=== PATIENT | female | born 1945 | race Caucasian/White ===

== ENCOUNTER 2019-07-28 15:47 | Inpatient (IN) | payer OTHER, BC ==
--- NOTE | 2019-07-28 15:53 | PDOC ---
Rapid Medical Evaluation Chief Complaint: Shortness of Breath Time Seen by Provider: 07/28/19 15:51 Medical Evaluation: 07/28/19 15:51 This patient had rapid evaluation in triage cc: shortness of breath since yesterday HPI: Patient reports shortness of breath since yesterday. Seen at primary physician's office and referred to ed for further evaluation PE: labored persed lip breathing in triage +expiratory wheezing at bases heart s1s2 order: chest xray, nebulizer This patient will proceed to main emergency room for further evaluation. Discharge Disposition - Diagnosis Shortness of breath - Referrals - Patient Instructions - Post Discharge Activity
[2019-07-28] MEDS ORDERED: ALBUTEROL SO4 2.5/IPRATROPIUM 0.5 INH SOL 3 ML VIAL.NEB. NEB ONE ×2 (15:54→16:07)
[2019-07-28] MEDS ORDERED: AZITHROMYCIN IVPB 250 MG in DEXTROSE 5%-WATER - 250 ML IVPB ONE (16:20)
[2019-07-28] MEDS ORDERED: methylPREDNISolone NA SUCC 125 MG/2 ML VIAL IVPB ONE (16:21)
--- NOTE | 2019-07-28 16:23 | PDOC ---
History of Present Illness - General Chief Complaint: Shortness of Breath Stated Complaint: EMPHYSEMA Time Seen by Provider: 07/28/19 15:51 Past History - Past Medical History Allergies/Adverse Reactions: Allergies Allergy/AdvReac Type Severity Reaction Status Date / Time No Known Allergies Allergy Verified 07/28/19 15:55 Home Medications: Ambulatory Orders Albuterol Sulfate [Albuterol Sulfate Hfa] 2 inh IN Q4HWA PRN 07/28/19 Budesonide/Formeterol Fumarate [SYMBICORT 160/4.5mcg -] 2 inh IN BID 07/28/19 Lisinopril 10 mg PO DAILY 07/28/19 Montelukast Na [Singulair -] 10 mg PO HS 07/28/19 Pantoprazole Sodium 40 mg PO DAILY 07/28/19 - Psycho Social/Smoking Cessation Hx Smoking History: Never smoked Information on smoking cessation initiated: No Hx Alcohol Use: No Drug/Substance Use Hx: No *Physical Exam - Vital Signs Last Vital Signs Temp Pulse Resp BP Pulse Ox 97.9 F 90 18 186/97 H 98 07/28/19 15:50 07/28/19 15:50 07/28/19 15:50 07/28/19 15:50 07/28/19 15:50 07/28/19 16:[address] Gokul Monzon 74 y/o female PMH HTN, slipped lumbar disc, and COPD c/o SOB. This has happened before. She was sent in from PCP for SOB. She states that she was recently hospitalized for a similar presentation at [facility] for the month of May 2019. She reports that she was cleaning her home today, including dusting, which often triggers her cough/SOB. Other possible exacerbating factor includes active smoking. She has no pets or rugs in her home. She denies orthopnea, PND, and leg swelling. Denies FNVD, chills, and constipation No new meds/herbs, drugs/supplements No recent illness, sick contacts, or recent travel Fam hx: brother cardiac disease Surgical hx: extensive and includes BL knee replacements, LEFT breast lumpectomy, appendectomy, Social hx: Active smoker. Social etoh. Denies recreational drug use. Retired adult school counselor. No pets at home. REVIEW OF SYSTEMS CONSTITUTIONAL: Absent: fever, chills, diaphoresis, generalized weakness, malaise, loss of appetite, weight change HEENT: Absent: rhinorrhea, nasal congestion, throat pain, throat swelling, difficulty swallowing, mouth swelling, ear pain, eye pain, visual changes CARDIOVASCULAR: Absent: chest pain, syncope, palpitations, irregular heart rate, lightheadedness, peripheral edema RESPIRATORY: Absent: cough, shortness of breath, dyspnea with exertion, orthopnea, wheezing, stridor, hemoptysis GASTROINTESTINAL: Absent: abdominal pain, abdominal distension, nausea, vomiting, diarrhea, c onstipation, melena, hematochezia GENITOURINARY: Absent: dysuria, frequency, urgency, hesitancy, hematuria, flank pain, genital pain MUSCULOSKELETAL: Absent: myalgia, arthralgia, joint swelling, back pain, neck pain SKIN: Absent: rash, itching, pallor HEMATOLOGIC/IMMUNOLOGIC: Absent: easy bleeding, easy bruising, lymphadenopathy, frequent infections ENDOCRINE: Absent: unexplained weight gain, unexplained weight loss, heat intolerance, cold intolerance NEUROLOGIC: Absent: headache, focal weakness or paresthesias, dizziness, unsteady gait, seizure, mental status changes, bladder or bowel incontinence PSYCHIATRIC: Absent: anxiety, depression, suicidal or homicidal ideation, hallucinations. > GENERAL: AO x3 in acute distress HEAD: NCAT EYES: ARUNA, EOMI, sclera anicteric, conjunctiva clear. No ptosis. ENT: Ears normal, nares patent, oropharynx clear without exudates, moist mucous membranes. NECK: Trachea midline, full range of motion, supple. > LUNGS: Diffuse wheezes in anterior and post. lung cat, accessory muscle use, sitting in tripod position HEART: RRR, S1, S2 without murmur, rub or gallop. ABDOMEN: Soft, nontender, nondistended, normoactive bowel sounds, no guarding, no rebound, no hepatosplenomegaly, no masses. EXTREMITIES: 2+ pulses, warm, well-perfused, no edema. NEUROLOGICAL: Cranial nerves II through XII grossly intact. Normal speech, gait not observed. PSYCH: Normal mood, normal affect. SKIN: Warm, dry, normal turgor, no rashes or lesions noted # COPD exacerbation - CBC, CMP, UA, cardiac profile, EKG, cont. cardiac monitoring - BiPAP - 125 mg methylprednisolone - DuoNebs - PRN albuterol - Will consider Mg if cont. decompensated state 07/28/19 17:40 Labs WNL CXR: aortic plaque, prominent lia, prominent heart. Density at middle RIGHT base. No sign of infiltrate. Call made to Dr. Gokul Hamilton for admission service advised admissions go to [facility] hospitalist. 07/28/19 18:09 Dr. Gokul Hamilton's service advised admissions go to [facility] hospitalist. Microblog sent 07/28/19 18:[address] Vega for admission to med-surg ED Treatment Course - LABORATORY CBC & Chemistry Diagram: 07/29/19 07:20 07/29/19 07:20 - Medications Given in the ED: ED Medications Discontinued Medications Generic Name Dose Route Start Last Admin Trade Name Freq PRN Reason Stop Dose Admin Albuterol/Ipratropium 1 amp 07/28/19 15:54 07/28/19 16:10 Duoneb - NEB 07/28/19 15:55 1 amp ONCE ONE Administration Discharge - Discharge Information Problems reviewed: Yes Clinical Impression/Diagnosis: Shortness of breath COPD (chronic obstructive pulmonary disease) with emphysema Qualifiers: Emphysema type: unspecified Qualified Code(s): J43.9 - Emphysema, unspecified - Follow up/Referral - Patient Discharge Instructions - Post Discharge Activity
[2019-07-28] MEDS ORDERED: methylPREDNISolone NA SUCC 125 MG/2 ML VIAL ONE (16:50)
--- NOTE | 2019-07-28 16:52 | PDOC ---
Documentation entered by Carly May SCRIBE, acting as scribe for Brandon Barksdale MD. Brandon Barksdale MD: This documentation has been prepared by the Yadira cotton Brenda, SCRIBE, under my direction and personally reviewed by me in its entirety. I confirm that the documentation accurately reflects all work, treatment, procedures, and medical decision making performed by me. Attending Attestation - Resident Resident Name: Raphael Dwyer - ED Attending Attestation I have performed the following: I have examined & evaluated the patient, The case was reviewed & discussed with the resident, I agree w/resident's findings & plan, Exceptions are as noted - HPI HPI: 07/28/19 16:26 The patient is a 74 year old female with a significant PMH of COPD who presents to the ED sent by Dr. Ray for evaluation of shortness of breath and audible wheezing. Patient states that she was hospitalized for COPD exacerbation from 05/15-06/16 and has never felt completely better, but sx worsened over t past few days. pt endorses increased coughing/sob and productive cough. she went to e PMD who found her with icnreased work of breathing and wheezing, gave her a neb and sent her to the ED for evaluation.pt endorses increased MASON. Denies any current fever/chills, n/v, cp, abd pain. pt notes increased leg swelling but is usual for her if she is ambulating. yvon any calf pain, leg pain, hemoptysis. Allergies: NKA Past surgical history: Social history: current tobacco use. No alcohol use or illicit drug use. PCP: Flor - Physicial Exam PE: 07/28/19 17:26 exam: general:pursed lip breathing, speaking in short segments Pulm: diffuse wheezing throughout, no rales apreciated, card: rrr,. no mrg abd: soft nontender,. no rebound/guarding ext: symmetric bl pitting edmea, no calf tenderness, neg homans sign - Critical Care Time Total Critical Care Time: 35 Critical Care Statement: The care of this patient involved high complexity decision making to prevent further life threatening deterioration of the patient's condition and/or to evaluate & treat vital organ system(s) failure or risk of failure. - Medical Decision Making 07/28/19 17:27 suspect copd exacerbation will obtain xray to r/o pna labs, vbg steroids, duonebs for sx relief bipap started toa ssist with work of breathing with improvement will continue montioring anticipate admission
[2019-07-28 16:53] LABS: BASO % 0.5 % (0-2.0); HEMATOCRIT 41.7 % (32.4-45.2); HEMOGLOBIN 13.6 GM/dL (10.7-15.3); MCH 30.1 pg (25.7-33.7); MCHC 32.6 g/dl (32.0-36.0); MEAN CELL VOLUME 92.3 fl (80-96); MEAN PLT VOLUME 9.3 fl (7.5-11.1); MONO % 6.7 % (3.8-10.2); NEUT % 74.8 % (42.8-82.8); PLATELET COUNT 218 K/MM3 (134-434); RBC 4.51 M/mm3 (3.60-5.2); RDW 15.1 % (11.6-15.6); VENOUS PC02 46.4 mmHg (38-52); VENOUS PH 7.36 (7.31-7.41); WHITE BLOOD COUNT 7.8 K/mm3 (4.0-10.0)
[2019-07-28 16:54] LABS: VENOUS PO2 < 49 mmHg (28-48)
[2019-07-28 17:14] LABS: ALBUMIN 3.8 g/dl (3.4-5.0); BILIRUBIN,TOTAL 0.3 mg/dL (0.2-1); BLOOD UREA NITROGEN 16.1 mg/dL (7-18); CALCIUM 8.5 mg/dL (8.5-10.1); CREATININE 0.7 mg/dL (0.55-1.3); MAGNESIUM 2.1 mg/dL (1.8-2.4); POTASSIUM 3.9 mmol/L (3.5-5.1); TOT PROT 6.6 g/dl (6.4-8.2)
[2019-07-28 19:30] LABS: EPI CELLS 1.9 /HPF (0-5/HPF); HYALINE CASTS 1 /lpf (0-8); URINE APPEARANCE CLEAR; URINE BILIRUBIN NEGATIVE (NEGATIVE); URINE COLOR YELLOW; URINE GLUCOSE (UA) 1+ (NEGATIVE); URINE KETONE NEGATIVE (NEGATIVE); URINE LEUK ESTERASE TRACE (NEGATIVE); URINE NITRITE NEGATIVE (NEGATIVE); URINE PROTEIN NEGATIVE (NEGATIVE); URINE RBC 0 /hpf (0-4); URINE UROBILINOGEN 0.2 mg/dL (0.2-1.0); URINE WBC 5 /hpf (0-5)
--- NOTE | 2019-07-28 19:36 | HP ---
Admitting History and Physical - Primary Care Physician PCP: Henna Monzon - Admission Chief Complaint: SOB History of Present Illness: This is a 74 y/o woman with a PMHx of COPD, HTN, Lumbar Disc Disease, GERD, Tobacco Smoker. Who presents to the ED sent in by her PCP for evaluation of shortness of breath and audible wheezing. Patient reports that she was hospitalized at [facility] for COPD Exacerbation from 05/15-06/16 and reports no improvement since discharge. Patient reports having increased productive cough and MASON. Patient reports increased bilateral leg swelling. Patient denies fever , chills, dizziness, DUARTE, CP, palpitations, AP, N/V/D, constipation, dysuria. History Source: Patient Limitations to Obtaining History: No Limitations - Past Medical History Cardiovascular: Yes: HTN Pulmonary: Yes: COPD Gastrointestinal: Yes: GERD Musculoskeletal: Yes: Chronic low back pain - Past Surgical History Past Surgical History: Yes: Appendectomy, Joint Replacement (bilateral Knee) Additional Past Surgical History: Left breast lumpectomy - Smoking History Smoking history: Current every day smoker Have you smoked in the past 12 months: Yes Aproximately how many cigarettes per day: 10 (reports 10-20) - Alcohol/Substance Use Hx Alcohol Use: Yes (Social) History of Substance Use: reports: None - Social History Usual Living Arrangement: Yes: Other (her brother lives upstairs (2 family home) ) ADL: Independent Occupation: Retired Teacher History of Recent Travel: No Home Medications - Allergies Allergies/Adverse Reactions: Allergies Allergy/AdvReac Type Severity Reaction Status Date / Time No Known Allergies Allergy Verified 07/28/19 15:55 - Home Medications Home Medications: Ambulatory Orders Albuterol Sulfate [Albuterol Sulfate Hfa] 2 inh IN Q4HWA PRN 07/28/19 Budesonide/Formeterol Fumarate [SYMBICORT 160/4.5mcg -] 2 inh IN BID 07/28/19 Lisinopril 10 mg PO DAILY 07/28/19 Montelukast Na [Singulair -] 10 mg PO HS 07/28/19 Pantoprazole Sodium 40 mg PO DAILY 07/28/19 Family Medical History Family Hx Diabetes: Mother (Alcoholism- Father) Review of Systems - Review of Systems Constitutional: reports: No Symptoms Eyes: reports: No Symptoms HENT: reports: No Symptoms Neck: reports: No Symptoms Cardiovascular: reports: Edema, Shortness of Breath Respiratory: reports: Cough, SOB, Wheezing Gastrointestinal: reports: No Symptoms Genitourinary: reports: No Symptoms Breasts: reports: No Symptoms Reported Musculoskeletal: reports: No Symptoms Integumentary: reports: No Symptoms Neurological: reports: No Symptoms Endocrine: reports: No Symptoms Hematology/Lymphatic: reports: No Symptoms Psychiatric: reports: No Symptoms Physical Examination Vital Signs: Vital Signs Temperature 97.9 F 07/28/19 15:50 Pulse Rate 87 07/28/19 18:42 Respiratory Rate 24 H 07/28/19 19:19 Blood Pressure 190/75 H 07/28/19 18:42 O2 Sat by Pulse Oximetry (%) 99 07/28/19 19:19 Constitutional: Yes: Mild Distress, Obese Eyes: Yes: WNL, Conjunctiva Clear, EOM Intact HENT: Yes: WNL, Atraumatic, Normocephalic Neck: Yes: WNL, Supple, Trachea Midline Cardiovascular: Yes: WNL, Regular Rate and Rhythm, S1, S2 Respiratory: Yes: Diminished, On Nasal O2, Rhonchi, SOB on Exertion, Wheezes Gastrointestinal: Yes: WNL, Normal Bowel Sounds, Soft, Abdomen, Obese ...Rectal Exam: Yes: Deferred Renal/: Yes: WNL Breast(s): Yes: WNL Musculoskeletal: Yes: Back Pain Extremities: Yes: WNL Edema: Yes Edema: LLE: 2+, RLE: 2+ Peripheral Pulses WNL: Yes Integumentary: Yes: WNL Neurological: Yes: WNL, Alert, Oriented, Cran Nerves II-XII Intact ...Motor Strength: WNL Psychiatric: Yes: WNL, Alert, Oriented Labs: CBC, BMP 07/28/19 16:30 07/28/19 16:30 Laboratory Results - last 24 hr 07/28/19 07/28/19 07/28/19 16:30 16:30 16:30 WBC 7.8 RBC 4.51 Hgb 13.6 Hct 41.7 MCV 92.3 MCH 30.1 MCHC 32.6 RDW 15.1 Plt Count 218 MPV 9.3 Absolute Neuts (auto) 5.9 Neutrophils % 74.8 Lymphocytes % 17.0 Monocytes % 6.7 Eosinophils % 1.0 Basophils % 0.5 Nucleated RBC % 0 VBG pH POC VBG pCO2 POC VBG pO2 VBG HCO3 VBG O2 Sat (Erna) VBG Base Excess Sodium 141 Potassium 3.9 Chloride 107 Carbon Dioxide 27 Anion Gap 7 L BUN 16.1 Creatinine 0.7 Est GFR (CKD-EPI)AfAm 97.54 Est GFR (CKD-EPI)NonAf 84.16 Random Glucose 98 Calcium 8.5 Magnesium 2.1 Total Bilirubin 0.3 AST 12 L ALT 21 Alkaline Phosphatase 115 Creatine Kinase 53 Troponin I < 0.02 Total Protein 6.6 Albumin 3.8 Urine Color Urine Appearance Urine pH Ur Specific [place] Urine Protein Urine Glucose (UA) Urine Ketones Urine Blood Urine Nitrite Urine Bilirubin Urine Urobilinogen Ur Leukocyte Esterase Urine WBC (Auto) Urine RBC (Auto) Urine Casts (Auto) U Epithel Cells (Auto) Urine Bacteria (Auto) 07/28/19 07/28/19 16:30 18:45 WBC RBC Hgb Hct MCV MCH MCHC RDW Plt Count MPV Absolute Neuts (auto) Neutrophils % Lymphocytes % Monocytes % Eosinophils % Basophils % Nucleated RBC % VBG pH 7.36 POC VBG pCO2 46.4 POC VBG pO2 < 49 H VBG HCO3 25.7 VBG O2 Sat (Erna) 61.3 L VBG Base Excess 0.4 Sodium Potassium Chloride Carbon Dioxide Anion Gap BUN Creatinine Est GFR (CKD-EPI)AfAm Est GFR (CKD-EPI)NonAf Random Glucose Calcium Magnesium Total Bilirubin AST ALT Alkaline Phosphatase Creatine Kinase Troponin I Total Protein Albumin Urine Color Yellow Urine Appearance Clear Urine pH 5.0 Ur Specific [place] 1.011 Urine Protein Negative Urine Glucose (UA) 1+ H Urine Ketones Negative Urine Blood Negative Urine Nitrite Negative Urine Bilirubin Negative Urine Urobilinogen 0.2 Ur Leukocyte Esterase Trace Urine WBC (Auto) 5 Urine RBC (Auto) 0 Urine Casts (Auto) 1 U Epithel Cells (Auto) 1.9 Urine Bacteria (Auto) 75.0 Intake & Output 07/26/19 07/27/19 07/28/19 07/29/19 23:59 23:59 23:59 23:59 Intake Total 250 Balance 250 Weight 94.801 kg Current Medications Generic Name Dose Route Start Last Admin Trade Name Freq PRN Reason Stop Dose Admin Albuterol/Ipratropium 1 amp 07/28/19 19:31 07/29/19 06:10 Duoneb - NEB 1 amp Q6H PRN Administration SHORTNESS OF BREATH Budesonide/Formoterol Fumarate 2 puff 07/28/19 22:00 07/28/19 23:04 Symbicort 160/4.5mcg - IH 2 puff BID SAL Administration Heparin Sodium (Porcine) 5,000 unit 07/28/19 22:00 07/28/19 22:43 Heparin - SQ 5,000 unit BID SAL Administration Levofloxacin 500 mg in 100 mls @ 100 mls/hr 07/29/19 10:00 Levaquin 500 Mg Premixed Ivpb - IVPB DAILY SAL Protocol Lisinopril 10 mg 07/29/19 10:00 Prinivil PO DAILY SAL Methylprednisolone Sodium Succinate 40 mg 07/29/19 02:00 07/29/19 01:12 Solu-Medrol - IVPUSH 40 mg Q8H-IV SAL Administration Montelukast Sodium 10 mg 07/28/19 22:00 07/28/19 22:43 Singulair - PO 10 mg HS SAL Administration Pantoprazole Sodium 40 mg 07/29/19 10:00 Protonix - PO DAILY SAL Imaging - Results Chest X-ray: Image Reviewed EKG: Pending Problem List - Problems (1) COPD with acute exacerbation Assessment/Plan: ? Emphysema Chest Xray reviewed VBG- 7.36/46.4/<49/25.7/61.3 Patient placed on Bipap in ED for increased labored breathing Titrate with ABG Appreciate Pulmonology consult Solumederol, Azithromycin given in ED Will continue Solumederol w/taper Will start on Levaquin secondary to recent hospitalization, broad spectrum coverage Sputum Culture Monitor CBC, BMP Aspiration Precautions Code(s): J44.1 - CHRONIC OBSTRUCTIVE PULMONARY DISEASE W (ACUTE) EXACERBATION (2) HTN (hypertension) Assessment/Plan: sub-optimal Monitor BP Continue Lisinopril, Norvasc Monitor renal function Code(s): I10 - ESSENTIAL (PRIMARY) HYPERTENSION (3) Lumbar disc disease Assessment/Plan: stable Tylenol prn Code(s): M51.9 - UNSP THORACIC, THORACOLUM AND LUMBOSACR INTVRT DISC DISORDER (4) GERD (gastroesophageal reflux disease) Assessment/Plan: stable Continue Pantoprazole Code(s): K21.9 - GASTRO-ESOPHAGEAL REFLUX DISEASE WITHOUT ESOPHAGITIS (5) Tobacco dependence Assessment/Plan: Counseled on smoking cessation Patient declined Nicoderm Patch Code(s): F17.200 - NICOTINE DEPENDENCE, UNSPECIFIED, UNCOMPLICATED Assessment/Plan This is a 74 y/o woman with a PMHx of COPD, HTN, Lumbar Disc Disease, GERD, Tobacco Smoker. Admitted to /S for Acute on Chronic COPD Exacerbation for further evaluation of their emergent condition. Plan: See Problem List FEN PO fluids as tolerated Replete lytes prn Low Na Diet DVT ppx OOB SCDs Heparin SQ Dispo: Requires Inpatient Care Visit type - Emergency Visit Emergency Visit: Yes ED Registration Date: 07/28/19 Care time: The patient presented to the Emergency Department on the above date and was hospitalized for further evaluation of their emergent condition. - New Patient This patient is new to me today: Yes Date on this admission: 07/28/19 - Critical Care Critical Care patient: No
[2019-07-28] MEDS: ALBUTEROL SO4 2.5/IPRATROPIUM 0.5 INH SOL 3 ML VIAL.NEB. NEB PRN (22:41)
[2019-07-28] MEDS: MONTELUKAST NA 10 MG TABLET PO SCH (22:43)
[2019-07-28] MEDS: HEPARIN NA (PORCINE) 5,000 UNITS/ML 1ML VIAL SQ SCH (22:43)
[2019-07-28] MEDS: BUDESONIDE/FORMETEROL FUMARATE 160/4.5 mcg INHALER IH SCH (23:04)
[2019-07-28 23:38] VITALS: BMI 34.7
[2019-07-29] MEDS: methylPREDNISolone NA SUCC 40 MG/1 ML VIAL IVPUSH SCH ×3 (01:12→17:25)
[2019-07-29] MEDS: ALBUTEROL SO4 2.5/IPRATROPIUM 0.5 INH SOL 3 ML VIAL.NEB. NEB PRN (06:10)
--- NOTE | 2019-07-29 08:34 | PN ---
Progress Note (short form) - Note Progress Note: admitted for acute shortness of breath was at [facility] after xmas for acute copd exacerbation-chest ct was ok since then has been at home, but does report increasingly worsening exertional dyspnea with wheezing came to office yesterday in acute respiratory distress, tachypneic, breathing though pursed lips and wheezing bilaterally little better after nebulizer treatment chr smoker, but only smokes couple cig per day has difficulty affording inhalers-not very consistent with use at home Vital Signs Period Temp Pulse Resp BP Sys/Hadley Pulse Ox Last 24 Hr 97.9 F-98.6 F 69-92 18-25 146-190/62-97 96-100 s1s2 rrr lungs diffuse bilateral faint wheezing abd soft ++pedal edema aaox3 was on bipapa overnight feels much better this am has not ambulated much acute copd exacerbation htn edema-check echo r/o lv dysfunction cxr with questionable density-she had chest ct at [facility] was ok, in my office in jan 2019 was ok repeat cxr later cont bp meds iv steroids nebulizers pulm f/up requested add lasix
[2019-07-29 08:35] LABS: BASO % 0.3 % (0-2.0); HEMATOCRIT 39.4 % (32.4-45.2); HEMOGLOBIN 12.9 GM/dL (10.7-15.3); LYMPH % 12.1 % (8-40); MCH 30.2 pg (25.7-33.7); MCHC 32.9 g/dl (32.0-36.0); MEAN PLT VOLUME 9.4 fl (7.5-11.1); MONO % 1.6 % (3.8-10.2); PLATELET COUNT 200 K/MM3 (134-434); RBC 4.28 M/mm3 (3.60-5.2); RDW 15.2 % (11.6-15.6); WHITE BLOOD COUNT 5.4 K/mm3 (4.0-10.0)
[2019-07-29 08:48] LABS: BLOOD UREA NITROGEN 17.5 mg/dL (7-18); CALCIUM 8.5 mg/dL (8.5-10.1); CREATININE 0.6 mg/dL (0.55-1.3); POTASSIUM 4.4 mmol/L (3.5-5.1)
--- NOTE | 2019-07-29 09:48 | CON.PULM ---
Consult Consult Specialty:: PULM/CCM Referred by:: PABLO Reason for Consultation:: SOB - History of Present Illness Chief Complaint: SOB History of Present Illness: 74 F, COPD, HTN, Lumbar Disc Disease, GERD, active smoker (reports "a few" a day ). Admitted recently admitted at [facility] on 05/22 for AE COPD and PNA. Apparently a CT chest was done at that time was was normal. Reports difficulty in affording her prescribed inhalers (Symbicort). No travel history or sick contacts. No hempotysis or night sweats. Patient appears to have presented in acute respiratory distress/failure requiring NIPPV support. CXR: Medial RLL density/infiltrate - History Source History Provided By: Patient Limitations to Obtaining History: No Limitations - Past Medical History Cardio/Vascular: Yes: HTN Pulmonary: Yes: Bronchitis, COPD, Pneumonia. No: Asthma, Cancer, O2 Dependent, Previously Intubated, Pulmonary Embolus, Pulmonary Fibrosis Gastrointestinal: Yes: GERD Musculoskeletal: Yes: Chronic low back pain - Past Surgical History Past Surgical History: Yes: Appendectomy, Joint Replacement (bilateral Knee) - Alcohol/Substance Use Hx Alcohol Use: Yes (Social) History of Substance Use: reports: None - Smoking History Smoking history: Current every day smoker Have you smoked in the past 12 months: Yes Aproximately how many cigarettes per day: 10 (reports 10-20) - Social History ADL: Independent Occupation: Retired Teacher History of Recent Travel: No Home Medications - Allergies Allergies/Adverse Reactions: Allergies Allergy/AdvReac Type Severity Reaction Status Date / Time No Known Allergies Allergy Verified 07/28/19 15:55 - Home Medications Home Medications: Ambulatory Orders Albuterol Sulfate [Albuterol Sulfate Hfa] 2 inh IN Q4HWA PRN 07/28/19 Budesonide/Formeterol Fumarate [SYMBICORT 160/4.5mcg -] 2 inh IN BID 07/28/19 Lisinopril 10 mg PO DAILY 07/28/19 Montelukast Na [Singulair -] 10 mg PO HS 07/28/19 Pantoprazole Sodium 40 mg PO DAILY 07/28/19 Review of Systems - Review of Systems Constitutional: reports: Lethargy, Malaise. denies: Chills, Fever, Night Sweats Eyes: reports: No Symptoms HENT: reports: No Symptoms Cardiovascular: reports: Shortness of Breath. denies: Chest Pain, Edema, Palpitations Respiratory: reports: Cough, Snoring, SOB, SOB on Exertion, Wheezing. denies: Hemoptysis, Orthopnea, PND Gastrointestinal: reports: Bloating Genitourinary: reports: No Symptoms Breasts: reports: No Symptoms Reported Musculoskeletal: reports: No Symptoms Integumentary: reports: No Symptoms Neurological: reports: No Symptoms Endocrine: reports: No Symptoms Hematology/Lymphatic: reports: No Symptoms Psychiatric: reports: No Symptoms Physical Exam Vital Sings: Vital Signs Temperature 98.6 F 07/29/19 07:19 Pulse Rate 69 07/29/19 07:19 Respiratory Rate 20 07/29/19 07:19 Blood Pressure 156/62 07/29/19 07:19 O2 Sat by Pulse Oximetry (%) 98 07/29/19 07:31 Constitutional: Yes: Mild Distress Eyes: Yes: Conjunctiva Clear, EOM Intact HENT: Yes: Atraumatic, Normocephalic Neck: Yes: Supple, Trachea Midline Cardiovascular: Yes: Regular Rate and Rhythm Respiratory: Yes: Cough, Diminished, On Nasal O2, Rhonchi, SOB, SOB on Exertion , Tachypnea, Wheezes. No: Accessory Muscle Use, Rales, Stridor ...Inspection: Yes: WNL ...Clubbing: No Gastrointestinal: Yes: Normal Bowel Sounds, Soft, Abdomen, Obese Renal/: Yes: WNL Musculoskeletal: Yes: WNL Extremities: Yes: WNL Edema: No Peripheral Pulses WNL: Yes Integumentary: Yes: WNL Neurological: Yes: WNL, Alert, Oriented ...Motor Strength: WNL Psychiatric: Yes: WNL, Alert, Oriented Labs: CBC, BMP 07/29/19 07:20 07/29/19 07:20 Imaging - Results Chest X-ray: Report Reviewed, Image Reviewed Problem List - Problems (1) Community acquired pneumonia Code(s): J18.9 - PNEUMONIA, UNSPECIFIED ORGANISM (2) COPD with acute exacerbation Code(s): J44.1 - CHRONIC OBSTRUCTIVE PULMONARY DISEASE W (ACUTE) EXACERBATION (3) GERD (gastroesophageal reflux disease) Code(s): K21.9 - GASTRO-ESOPHAGEAL REFLUX DISEASE WITHOUT ESOPHAGITIS (4) HTN (hypertension) Code(s): I10 - ESSENTIAL (PRIMARY) HYPERTENSION (5) Lumbar disc disease Code(s): M51.9 - UNSP THORACIC, THORACOLUM AND LUMBOSACR INTVRT DISC DISORDER (6) Shortness of breath Code(s): R06.02 - SHORTNESS OF BREATH (7) Tobacco dependence Code(s): F17.200 - NICOTINE DEPENDENCE, UNSPECIFIED, UNCOMPLICATED Assessment/Plan Levaquin Medrol BD TX Standing and PRN Symbicort Spiriva CT Chest was apparently performed at [facility] (for screening in an active smoker) Supplemental O2 as needed Will need Pre and Post ambulation O2 saturation checked prior to discharge No smoking was discussed VTE prophylaxis Outpatient PFTs once stable Sleep screen Will follow Thank you. Dr Womack LORAINE Screen - LORAINE History Previously diagnosed with Sleep Apnea: No If Yes, currently using CPAP to treat your LORAINE: No - SNORING Do you snore loudly (enough to be heard thru closed doors)?: No - TIRED Do you often feel tired, fatigued, or sleepy during daytime?: Yes - OBSERVED Has anyone observed you stop breathing during your sleep?: No - BLOOD PRESSURE Do you have or are being treated for high blood pressure?: Yes - BMI Answer Y if weight exceeds amount listed for your height: Yes .: HEIGHT & WEIGHT (lbs): 4'10" 167lbs; 4'11" 175 lbs; 5'0" 179lbs;. 5 '1" 185lbs; 5'2" 191lbs; 5'3" 197lbs;. 5'4" 204lbs; 5'5" 210lbs; 5'6" 216lbs;. 5'7" 223lbs; 5'8" 230lbs; 5'9" 237lbs;. 5'10" 243lbs ; 5'11" 250lbs; 6' 258lbs;. 6'1" 265lbs; 6'2" 272lbs; 6'3" 279lbs ;. 6'4" 287lbs; 6'5" 295lbs - AGE Is your age over 50 yrs old?: Yes - NECK CIRCUMFERENCE Neck Circumference 40cm: No - GENDER Male: No - SCORE Total Score: 4 Score Interpretation: Intermediate Risk of LORAINE .: Interpretation: Score 0-2: Low Risk LORAINE. Score 3-4: Intermediate Risk LORAINE. Score 5-8: High Risk LORAINE
[2019-07-29] MEDS ORDERED: LISINOPRIL 10 MG TABLET (FP) PO SCH (10:00)
[2019-07-29] MEDS ORDERED: PT OWN MED DRAWER 7, Y5N ONE (10:34)
--- NOTE | 2019-07-29 10:34 | EKG ---
Test Reason : Blood Pressure : / mmHG Vent. Rate : 083 BPM Atrial Rate : 083 BPM P-R Int : 156 ms QRS Dur : 078 ms QT Int : 388 ms P-R-T Axes : 062 017 055 degrees QTc Int : 455 ms NORMAL SINUS RHYTHM NORMAL ECG NO PREVIOUS ECGS AVAILABLE Confirmed by Saulo Mathews MD ([id number]) on 07/29/2019 10:34:10 AM Referred By: Confirmed By:Saulo Mathews MD
[2019-07-29] MEDS: HEPARIN NA (PORCINE) 5,000 UNITS/ML 1ML VIAL SQ SCH ×2 (10:39→21:24)
[2019-07-29] MEDS: FUROSEMIDE 40 MG TABLET (FP) PO SCH (10:39)
[2019-07-29] MEDS: PANTOPRAZOLE 40 MG TABLET PO SCH (10:39)
[2019-07-29] MEDS: LISINOPRIL 20 MG TABLET (FP) PO SCH (10:39)
[2019-07-29] MEDS: amLODIPine BESYLATE 10 MG TABLET (FP) PO SCH (10:39)
[2019-07-29] MEDS: TIOTROPIUM BROMIDE 2.5 MCG (SPIRIVA) RESPIMAT INHALER IH SCH (10:40)
[2019-07-29] MEDS: BUDESONIDE/FORMETEROL FUMARATE 160/4.5 mcg INHALER IH SCH ×2 (10:40→21:25)
[2019-07-29] MEDS: guaiFENesin/D-METHORPHAN HB 10 ML UNIT-DOSE CUPS PO PRN (10:47)
[2019-07-29 11:20] LABS: ARTERIAL BLD GAS O2 SATURATION 96.9 % (95-98); ARTERIAL BLOOD GAS BASE EXCESS 0.1 meq/l (-2-2); ARTERIAL BLOOD GAS PCO2 33.5 mmHg (35-45); ARTERIAL BLOOD GAS PO2 86.9 mmHg (80-100); ARTERIAL BLOOD GAS pH 7.45 (7.35-7.45)
[2019-07-29 11:21] LABS: ALLENS TEST POSITIVE
[2019-07-29] MEDS: ALBUTEROL SO4 0.083% IH SOL 2.5 MG/3 ML VIAL.NEB. NEB SCH ×3 (11:45→21:30)
--- NOTE | 2019-07-29 14:39 | ECHO ---
Version: 1 Name: ANNAMARIA CARPIO Exam: Adult Echocardiogram Study Date: 07/29/2019, 1:41 PM Age: 74 Years MMode/2D Measurements & Calculations IVSd: 1.15 cm LVIDs: 2.6 cm LVIDd: 3.5 cm LVPWd: 0.87 cm LVOT diam: 1.77 cm Ao root diam: 2.6 cm LA dimension: 3.5 cm Doppler Measurements & Calculations MV E max eduardo: 83.9 cm/sec Med E/e': 10.8 MV A max eduardo: 118.7 cm/sec Med Peak E' Eduardo: 7.8 cm/sec MV E/A: 0.71 Lat E/e': 10.8 Lat Peak E' Eduardo: 7.8 cm/sec MR max P.1 mmHg Ao max P.5 mmHg ROMY(I,D): 2.06 cm Ao mean P.6 mmHg LV V1 mean: 97.1 cm/sec Ao V2 max: 154.2 cm/sec LV V1 mean P.2 mmHg TR max eduardo: 256.4 cm/sec TR max P.3 mmHg Procedure The study was technically limited with all images being suboptimal in quality. Left Ventricle The left ventricular size, thickness and function are normal. Ejection Fraction = 65%. The transmitr al spectral Doppler flow pattern is suggestive of impaired LV relaxation. Right Ventricle The right ventricle is normal in size and function. Atria Normal left and right atrial size and function. Mitral Valve There is mild mitral annular calcification. There is trace to mild mitral regurgitation. Tricuspid Valve The tricuspid valve is not well visualized, but is grossly normal. There is mild tricuspid regurgita tion. Aortic Valve There is mild aortic sclerosis.;. Pulmonic Valve The pulmonic valve is not well visualized. Great Vessels The aortic root is normal size. Normal aortic arch, descending and ascending aorta. Pericardium/Pleura There is no pericardial effusion. Tech Comments Pt breathing very heavy. Pt having a hard time laying down. Summary Statements The study was technically limited with all images being suboptimal in quality. The left ventricular size, thickness and function are normal Ejection Fraction = 65%. The transmitral spectral Doppler flow pattern is suggestive of impaired LV relaxation. The right ventricle is normal in size and function. Normal left and right atrial size and function. There is mild mitral annular calcification. There is trace to mild mitral regurgitation. The tricuspid valve is not well visualized, but is grossly normal. There is mild tricuspid regurgitation. There is mild aortic sclerosis.; The pulmonic valve is not well visualized. The aortic root is normal size. Normal aortic arch, descending and ascending aorta There is no pericardial effusion. Jose Miguel Juarez 07/29/2019, 2:38 PM Ordering Physician: Henna Monzon Performed By: Tesha Byrne
[2019-07-29] MEDS: MONTELUKAST NA 10 MG TABLET PO SCH (21:23)
[2019-07-29] MEDS: ATORVASTATIN CA 10 MG TABLET (FP) PO SCH (21:23)
[2019-07-29] MEDS ORDERED: MELATONIN 5 MG TABLETS PO ONE (23:41)
[2019-07-30] MEDS: methylPREDNISolone NA SUCC 40 MG/1 ML VIAL IVPUSH SCH ×3 (01:13→17:14)
[2019-07-30] MEDS: guaiFENesin/D-METHORPHAN HB 10 ML UNIT-DOSE CUPS PO PRN ×2 (01:18→10:32)
[2019-07-30] MEDS: ALBUTEROL SO4 0.083% IH SOL 2.5 MG/3 ML VIAL.NEB. NEB PRN (01:35)
[2019-07-30] MEDS ORDERED: MENTHOL/PHENOL 1 EACH UD MM PRN (03:42)
[2019-07-30] MEDS: BENZOCAINE/MENTH/CETYLPYRD CL 1 EACH LOZENGE MM PRN ×2 (03:53→10:56)
[2019-07-30] MEDS: ALBUTEROL SO4 0.083% IH SOL 2.5 MG/3 ML VIAL.NEB. NEB SCH ×4 (08:36→20:59)
--- NOTE | 2019-07-30 09:01 | PN ---
Progress Note (short form) - Note Progress Note: CBC, BMP 07/29/19 07:20 07/29/19 07:20 Vital Signs Period Temp Pulse Resp BP Sys/Hadley Pulse Ox Last 24 Hr 97.2 F-98.4 F 69-80 18-20 132-162/54-109 95-98 s1s2 rrr lungs diffuse bilateral faint wheezing abd soft ++pedal edema aaox3 was on bipap overnight still very dyspneic on minimal exertion echo with diastolic dysfunction acute copd exacerbation htn edema-check echo r/o lv dysfunction cxr with questionable density-she had chest ct at [facility] was ok, in my office in jan 2019 was ok repeat cxr later cont bp meds iv steroids nebulizers pulm f/up appreciated norma
[2019-07-30] MEDS ORDERED: PT OWN MED DRAWER 7, Y5N ONE (09:16)
[2019-07-30] MEDS: FUROSEMIDE 40 MG TABLET (FP) PO SCH (09:20)
[2019-07-30] MEDS: amLODIPine BESYLATE 10 MG TABLET (FP) PO SCH (09:20)
[2019-07-30] MEDS: PANTOPRAZOLE 40 MG TABLET PO SCH (09:21)
[2019-07-30] MEDS: LISINOPRIL 20 MG TABLET (FP) PO SCH (09:21)
[2019-07-30] MEDS: BUDESONIDE/FORMETEROL FUMARATE 160/4.5 mcg INHALER IH SCH ×2 (09:23→21:00)
[2019-07-30] MEDS: TIOTROPIUM BROMIDE 2.5 MCG (SPIRIVA) RESPIMAT INHALER IH SCH (09:23)
[2019-07-30] MEDS: HEPARIN NA (PORCINE) 5,000 UNITS/ML 1ML VIAL SQ SCH ×3 (09:24→23:50)
--- NOTE | 2019-07-30 13:28 | PN ---
Progress Note (short form) - Note Progress Note: PULMONARY States breathing about the same as yesterday. Still with cough productive of white sputum and wheezing. No fevers. Vital Signs Period Temp Pulse Resp BP Sys/Hadley Pulse Ox Last 24 Hr 97.2 F-98.4 F 69-80 18-20 132-162/54-109 95-98 Gen: mildly tachypneic with speaking Heart: RRR Lung: distant breath sounds, scattered rhonchi Abd: soft, nontender Ext: no edema CBC, BMP 07/29/19 07:20 07/29/19 07:20 Active Medications Albuterol Sulfate (Ventolin 0.083% Nebulizer Soln -) 1 amp NEB RQID SAL Last Admin: 07/30/19 11:35 Dose: 1 amp Albuterol Sulfate (Ventolin 0.083% Nebulizer Soln -) 1 amp NEB Q4H PRN PRN Reason: SHORT OF BREATH/WHEEZING Last Admin: 07/30/19 01:35 Dose: 1 amp Amlodipine Besylate (Norvasc -) 10 mg PO DAILY [facility] Last Admin: 07/30/19 09:20 Dose: 10 mg Atorvastatin Calcium (Lipitor -) 10 mg PO HS [facility] Last Admin: 07/29/19 21:23 Dose: 10 mg Benzocaine/Menthol (Cepacol Lozenge -) 1 each MM Q4H PRN PRN Reason: SORE THROAT Last Admin: 07/30/19 10:56 Dose: 1 each Budesonide/Formoterol Fumarate (Symbicort 160/4.5mcg -) 2 puff IH BID [facility] Last Admin: 07/30/19 09:23 Dose: 2 puff Furosemide (Lasix -) 40 mg PO DAILY [facility] Last Admin: 07/30/19 09:20 Dose: 40 mg Guaifenesin (Robitussin Dm -) 10 ml PO Q8H PRN PRN Reason: COUGH Last Admin: 07/30/19 10:32 Dose: 10 ml Heparin Sodium (Porcine) (Heparin -) 5,000 unit SQ BID [facility] Last Admin: 07/30/19 09:24 Dose: 5,000 unit Levofloxacin (Levaquin 500 Mg Premixed Ivpb -) 500 mg in 100 mls @ 100 mls/hr IVPB DAILY [facility]; Protocol Last Admin: 07/30/19 09:21 Dose: 100 mls/hr Lisinopril (Prinivil) 20 mg PO DAILY [facility] Last Admin: 07/30/19 09:21 Dose: 20 mg Methylprednisolone Sodium Succinate (Solu-Medrol -) 40 mg IVPUSH Q8H-IV [facility] Last Admin: 07/30/19 09:23 Dose: 40 mg Montelukast Sodium (Singulair -) 10 mg PO HS [facility] Last Admin: 07/29/19 21:23 Dose: 10 mg Pantoprazole Sodium (Protonix -) 40 mg PO DAILY [facility] Last Admin: 07/30/19 09:21 Dose: 40 mg Tiotropium [place] (Spiriva Respimat) 2 puff IH DAILY [facility] Last Admin: 07/30/19 09:23 Dose: 2 puff A/P Acute COPD Exacerbation r/o Pneumonia HTN GERD Smoker - IV medrol - inhaled bronchodilators - continue antibiotics - O2 to keep SpO2>90% - BiPAP as needed to assist in work of breathing - outpt f/u of chest imaging to ensure resolution of infiltrates - DVT prophylaxis
[2019-07-30] MEDS: MONTELUKAST NA 10 MG TABLET PO SCH ×2 (20:58→23:50)
[2019-07-30] MEDS: ATORVASTATIN CA 10 MG TABLET (FP) PO SCH ×2 (20:58→23:50)
[2019-07-30] MEDS ORDERED: diphenhydrAMINE HCL 25 MG CAPSULE (FP) PO ONE (22:26)
[2019-07-31] MEDS: guaiFENesin/D-METHORPHAN HB 10 ML UNIT-DOSE CUPS PO PRN ×3 (00:03→21:31)
[2019-07-31] MEDS: ALBUTEROL SO4 0.083% IH SOL 2.5 MG/3 ML VIAL.NEB. NEB SCH ×5 (02:05→20:14)
[2019-07-31] MEDS: methylPREDNISolone NA SUCC 40 MG/1 ML VIAL IVPUSH SCH ×3 (02:15→17:13)
--- NOTE | 2019-07-31 07:48 | PN ---
Progress Note (short form) - Note Progress Note: Vital Signs Period Temp Pulse Resp BP Sys/Hadley Pulse Ox Last 24 Hr 97.6 F-98.1 F 63-81 16-20 125-153/56-98 94-98 s1s2 rrr lungs diffuse bilateral faint wheezing abd soft +pedal edema aaox3 not on bipap overnight last night still dyspneic on minimal exertion, but feels better echo with diastolic dysfunction acute copd exacerbation htn edema-check echo r/o lv dysfunction cxr with questionable density-she had chest ct at [facility] [place] [facility] was ok, in my office in jan 2019 was ok repeat cxr later cont bp meds iv steroids-taper tomorrow nebulizers pulm f/up appreciated norma
--- NOTE | 2019-07-31 08:50 | PN ---
Progress Note (short form) - Note Progress Note: OOB to chair. Breathing feels a little better today. No acute events overnight. Intake & Output 07/28/19 07/29/19 07/30/19 07/31/19 23:59 23:59 23:59 23:59 Intake Total 250 100 100 360 Balance 250 100 100 360 Weight 209 lb Last Vital Signs Temp Pulse Resp BP Pulse Ox 97.8 F 63 20 147/68 97 07/31/19 06:00 07/31/19 06:00 07/31/19 06:00 07/31/19 06:00 07/31/19 07:38 Active Medications Albuterol Sulfate (Ventolin 0.083% Nebulizer Soln -) 1 amp NEB RQID [facility] Last Admin: 07/31/19 07:38 Dose: Not Given Documented by: Albuterol Sulfate (Ventolin 0.083% Nebulizer Soln -) 1 amp NEB Q4H PRN PRN Reason: SHORT OF BREATH/WHEEZING Last Admin: 07/30/19 01:35 Dose: 1 amp Documented by: Amlodipine Besylate (Norvasc -) 10 mg PO DAILY [facility] Last Admin: 07/30/19 09:20 Dose: 10 mg Documented by: Atorvastatin Calcium (Lipitor -) 10 mg PO HS [facility] Last Admin: 07/30/19 23:50 Dose: Not Given Documented by: Benzocaine/Menthol (Cepacol Lozenge -) 1 each MM Q4H PRN PRN Reason: SORE THROAT Last Admin: 07/30/19 10:56 Dose: 1 each Documented by: Budesonide/Formoterol Fumarate (Symbicort 160/4.5mcg -) 2 puff IH BID [facility] Last Admin: 07/30/19 21:00 Dose: 2 puff Documented by: Furosemide (Lasix -) 40 mg PO DAILY [facility] Last Admin: 07/30/19 09:20 Dose: 40 mg Documented by: Guaifenesin (Robitussin Dm -) 10 ml PO Q8H PRN PRN Reason: COUGH Last Admin: 07/31/19 00:03 Dose: 10 ml Documented by: Heparin Sodium (Porcine) (Heparin -) 5,000 unit SQ BID [facility] Last Admin: 07/30/19 23:50 Dose: Not Given Documented by: Levofloxacin (Levaquin 500 Mg Premixed Ivpb -) 500 mg in 100 mls @ 100 mls/hr IVPB DAILY [facility]; Protocol Last Admin: 07/30/19 09:21 Dose: 100 mls/hr Documented by: Lisinopril (Prinivil) 20 mg PO DAILY [facility] Last Admin: 07/30/19 09:21 Dose: 20 mg Documented by: Methylprednisolone Sodium Succinate (Solu-Medrol -) 40 mg IVPUSH Q8H-IV [facility] Last Admin: 07/31/19 02:15 Dose: 40 mg Documented by: Montelukast Sodium (Singulair -) 10 mg PO HS [facility] Last Admin: 07/30/19 23:50 Dose: Not Given Documented by: Pantoprazole Sodium (Protonix -) 40 mg PO DAILY [facility] Last Admin: 07/30/19 09:21 Dose: 40 mg Documented by: Tiotropium [place] (Spiriva Respimat) 2 puff IH DAILY [facility] Last Admin: 07/30/19 09:23 Dose: 2 puff Documented by: Gen: Less tachypneic with speaking Heart: RRR Lung: distant breath sounds, scattered rhonchi and expiratory wheeze Abd: soft, nontender Ext: no edema A/P Acute COPD Exacerbation r/o Pneumonia HTN GERD Smoker - IV medrol - inhaled bronchodilators - continue antibiotics - O2 to keep SpO2>90% - outpt f/u of chest imaging to ensure resolution of infiltrates - DVT prophylaxis Dr Womack Problem List - Problems (1) Community acquired pneumonia Code(s): J18.9 - PNEUMONIA, UNSPECIFIED ORGANISM (2) COPD with acute exacerbation Code(s): J44.1 - CHRONIC OBSTRUCTIVE PULMONARY DISEASE W (ACUTE) EXACERBATION (3) GERD (gastroesophageal reflux disease) Code(s): K21.9 - GASTRO-ESOPHAGEAL REFLUX DISEASE WITHOUT ESOPHAGITIS (4) HTN (hypertension) Code(s): I10 - ESSENTIAL (PRIMARY) HYPERTENSION (5) Lumbar disc disease Code(s): M51.9 - UNSP THORACIC, THORACOLUM AND LUMBOSACR INTVRT DISC DISORDER (6) Shortness of breath Code(s): R06.02 - SHORTNESS OF BREATH (7) Tobacco dependence Code(s): F17.200 - NICOTINE DEPENDENCE, UNSPECIFIED, UNCOMPLICATED
[2019-07-31] MEDS ORDERED: PT OWN MED DRAWER 7, Y5N ONE (09:01)
[2019-07-31] MEDS: LISINOPRIL 20 MG TABLET (FP) PO SCH (09:07)
[2019-07-31] MEDS: FUROSEMIDE 40 MG TABLET (FP) PO SCH (09:07)
[2019-07-31] MEDS: amLODIPine BESYLATE 10 MG TABLET (FP) PO SCH (09:07)
[2019-07-31] MEDS: PANTOPRAZOLE 40 MG TABLET PO SCH (09:08)
[2019-07-31] MEDS: BUDESONIDE/FORMETEROL FUMARATE 160/4.5 mcg INHALER IH SCH ×2 (09:09→21:28)
[2019-07-31] MEDS: HEPARIN NA (PORCINE) 5,000 UNITS/ML 1ML VIAL SQ SCH ×2 (09:10→21:27)
[2019-07-31] MEDS: TIOTROPIUM BROMIDE 2.5 MCG (SPIRIVA) RESPIMAT INHALER IH SCH (09:12)
[2019-07-31] MEDS: BENZOCAINE/MENTH/CETYLPYRD CL 1 EACH LOZENGE MM PRN (10:52)
[2019-07-31] MEDS: ATORVASTATIN CA 10 MG TABLET (FP) PO SCH (21:27)
[2019-07-31] MEDS: MONTELUKAST NA 10 MG TABLET PO SCH (21:27)
[2019-08-01] MEDS: ALBUTEROL SO4 0.083% IH SOL 2.5 MG/3 ML VIAL.NEB. NEB PRN ×3 (00:39→13:35)
[2019-08-01] MEDS: methylPREDNISolone NA SUCC 40 MG/1 ML VIAL IVPUSH SCH ×4 (01:19→21:24)
[2019-08-01] MEDS: ALBUTEROL SO4 0.083% IH SOL 2.5 MG/3 ML VIAL.NEB. NEB SCH ×4 (07:30→20:25)
[2019-08-01 08:03] LABS: HEMATOCRIT 39.9 % (32.4-45.2); HEMOGLOBIN 13.3 GM/dL (10.7-15.3); MCH 30.4 pg (25.7-33.7); MCHC 33.4 g/dl (32.0-36.0); MEAN PLT VOLUME 9.3 fl (7.5-11.1); PLATELET COUNT 204 K/MM3 (134-434); RBC 4.38 M/mm3 (3.60-5.2); RDW 15.4 % (11.6-15.6)
[2019-08-01 08:44] LABS: ALBUMIN 3.8 g/dl (3.4-5.0); BILIRUBIN,TOTAL 0.4 mg/dL (0.2-1); BLOOD UREA NITROGEN 29.8 mg/dL (7-18); CALCIUM 9.1 mg/dL (8.5-10.1); CREATININE 0.8 mg/dL (0.55-1.3); POTASSIUM 4.5 mmol/L (3.5-5.1); TOT PROT 6.6 g/dl (6.4-8.2)
[2019-08-01] MEDS ORDERED: PT OWN MED DRAWER 7, Y5N ONE (09:10)
[2019-08-01] MEDS: HEPARIN NA (PORCINE) 5,000 UNITS/ML 1ML VIAL SQ SCH ×2 (09:16→21:24)
[2019-08-01] MEDS: PANTOPRAZOLE 40 MG TABLET PO SCH (09:16)
[2019-08-01] MEDS: LISINOPRIL 20 MG TABLET (FP) PO SCH (09:16)
[2019-08-01] MEDS: FUROSEMIDE 40 MG TABLET (FP) PO SCH (09:16)
[2019-08-01] MEDS: BUDESONIDE/FORMETEROL FUMARATE 160/4.5 mcg INHALER IH SCH ×2 (09:17→21:24)
[2019-08-01] MEDS: amLODIPine BESYLATE 10 MG TABLET (FP) PO SCH (09:17)
[2019-08-01] MEDS: TIOTROPIUM BROMIDE 2.5 MCG (SPIRIVA) RESPIMAT INHALER IH SCH (09:17)
[2019-08-01] MEDS: guaiFENesin/D-METHORPHAN HB 10 ML UNIT-DOSE CUPS PO PRN ×2 (09:49→21:24)
[2019-08-01] MEDS: BENZOCAINE/MENTH/CETYLPYRD CL 1 EACH LOZENGE MM PRN (09:49)
--- NOTE | 2019-08-01 14:04 | PN ---
Progress Note (short form) - Note Progress Note: PULMONARY DYSPNEIC [place] DOES NOT HAVE HOME O2 VSS/AFEBRILE Gen:tachypneic with speaking Heart: RRR Lung: distant breath sounds, scattered rhonchi and expiratory wheeze Abd: soft, nontender Ext: no edema CHART/ABS/MEDS/NOTES REVIEWED A/P Acute COPD Exacerbation r/o Pneumonia HTN GERD Smoker - IV medrol - inhaled bronchodilators - continue antibiotics - O2 to keep SpO2>90% - outpt f/u of chest imaging to ensure resolution of infiltrates - DVT prop Adair CANNON MD
[2019-08-01] MEDS: ACETAMINOPHEN 500 MG TABLET (FP) PO PRN ×2 (16:20→23:07)
[2019-08-01] MEDS: ATORVASTATIN CA 10 MG TABLET (FP) PO SCH (21:24)
[2019-08-01] MEDS: MONTELUKAST NA 10 MG TABLET PO SCH (21:24)
[2019-08-01] MEDS ORDERED: diphenhydrAMINE HCL 25 MG CAPSULE (FP) PO ONE (23:22)
[2019-08-02] MEDS: methylPREDNISolone NA SUCC 40 MG/1 ML VIAL IVPUSH SCH ×3 (03:47→18:04)
[2019-08-02] MEDS: ALBUTEROL SO4 0.083% IH SOL 2.5 MG/3 ML VIAL.NEB. NEB SCH ×4 (07:11→19:56)
[2019-08-02] MEDS ORDERED: PT OWN MED DRAWER 7, Y5N ONE (09:59)
--- NOTE | 2019-08-02 10:00 | PN ---
Progress Note, Physician Chief Complaint: Still c/o SOB - Current Medication List Current Medications: Active Medications Acetaminophen (Tylenol -) 1,000 mg PO Q6H PRN PRN Reason: PAIN Last Admin: 08/01/19 23:07 Dose: 1,000 mg Documented by: Albuterol Sulfate (Ventolin 0.083% Nebulizer Soln -) 1 amp NEB RQID [facility] Last Admin: 08/02/19 07:11 Dose: 1 amp Documented by: Albuterol Sulfate (Ventolin 0.083% Nebulizer Soln -) 1 amp NEB Q1H PRN PRN Reason: SHORT OF BREATH/WHEEZING Amlodipine Besylate (Norvasc -) 10 mg PO DAILY [facility] Last Admin: 08/01/19 09:17 Dose: 10 mg Documented by: Atorvastatin Calcium (Lipitor -) 10 mg PO HS [facility] Last Admin: 08/01/19 21:24 Dose: 10 mg Documented by: Benzocaine/Menthol (Cepacol Lozenge -) 1 each MM Q4H PRN PRN Reason: SORE THROAT Last Admin: 08/01/19 09:49 Dose: 1 each Documented by: Budesonide/Formoterol Fumarate (Symbicort 160/4.5mcg -) 2 puff IH BID [facility] Last Admin: 08/01/19 21:24 Dose: 2 puff Documented by: Furosemide (Lasix -) 40 mg PO DAILY [facility] Last Admin: 08/01/19 09:16 Dose: 40 mg Documented by: Guaifenesin (Robitussin Dm -) 10 ml PO Q8H PRN PRN Reason: COUGH Last Admin: 08/01/19 21:24 Dose: 10 ml Documented by: Heparin Sodium (Porcine) (Heparin -) 5,000 unit SQ BID [facility] Last Admin: 08/01/19 21:24 Dose: 5,000 unit Documented by: Levofloxacin (Levaquin 500 Mg Premixed Ivpb -) 500 mg in 100 mls @ 100 mls/hr IVPB DAILY [facility]; Protocol Last Admin: 08/01/19 09:17 Dose: 100 mls/hr Documented by: Lisinopril (Prinivil) 20 mg PO DAILY [facility] Last Admin: 08/01/19 09:16 Dose: 20 mg Documented by: Methylprednisolone Sodium Succinate (Solu-Medrol -) 40 mg IVPUSH Q6H-IV [facility] Last Admin: 08/02/19 03:47 Dose: 40 mg Documented by: Montelukast Sodium (Singulair -) 10 mg PO HS [facility] Last Admin: 08/01/19 21:24 Dose: 10 mg Documented by: Pantoprazole Sodium (Protonix -) 40 mg PO DAILY [facility] Last Admin: 08/01/19 09:16 Dose: 40 mg Documented by: Tiotropium [place] (Spiriva Respimat) 2 puff IH DAILY [facility] Last Admin: 08/01/19 09:17 Dose: 2 puff Documented by: - Objective Vital Signs: Vital Signs Temperature 97.7 F 08/02/19 06:00 Pulse Rate 59 L 08/02/19 06:00 Respiratory Rate 20 08/02/19 06:00 Blood Pressure 130/63 08/02/19 06:00 O2 Sat by Pulse Oximetry (%) 99 08/01/19 21:00 Elderly F not in distress c/o cough HEENT: Mm moist, no anemia NECK: No JVD No Bruit CHEST: B/L wheezes CVS: S1S2 R ABD: No distention, non tender, BS + EXT:Left Ue infiltrated IV Trace edema edema [employer]ILY [employer] WORK[employer]: alert non focal Labs: CBC, BMP 08/01/19 06:40 08/01/19 06:40 Problem List - Problems (1) COPD with acute exacerbation Assessment/Plan: Cont IV steroids, Duo neb, symbicort and O2 inhalation with Levofloxacin F/U Pulmonary recommendation. Problems reviewed: Yes Code(s): J44.1 - CHRONIC OBSTRUCTIVE PULMONARY DISEASE W (ACUTE) EXACERBATION (2) HTN (hypertension) Assessment/Plan: Cont all home meds Problems reviewed: Yes Code(s): I10 - ESSENTIAL (PRIMARY) HYPERTENSION (3) Hypercholesteremia Assessment/Plan: Cont statin Problems reviewed: Yes Code(s): E78.00 - PURE HYPERCHOLESTEROLEMIA, UNSPECIFIED (4) Lumbar disc disease Assessment/Plan: Cont pain meds Problems reviewed: Yes Code(s): M51.9 - UNSP THORACIC, THORACOLUM AND LUMBOSACR INTVRT DISC DISORDER
[2019-08-02] MEDS: FUROSEMIDE 40 MG TABLET (FP) PO SCH (10:02)
[2019-08-02] MEDS: PANTOPRAZOLE 40 MG TABLET PO SCH (10:02)
[2019-08-02] MEDS: HEPARIN NA (PORCINE) 5,000 UNITS/ML 1ML VIAL SQ SCH ×2 (10:03→21:50)
[2019-08-02] MEDS: amLODIPine BESYLATE 10 MG TABLET (FP) PO SCH (10:03)
[2019-08-02] MEDS: LISINOPRIL 20 MG TABLET (FP) PO SCH (10:03)
[2019-08-02] MEDS: TIOTROPIUM BROMIDE 2.5 MCG (SPIRIVA) RESPIMAT INHALER IH SCH (10:04)
[2019-08-02] MEDS: BUDESONIDE/FORMETEROL FUMARATE 160/4.5 mcg INHALER IH SCH ×2 (10:04→21:49)
[2019-08-02] MEDS: guaiFENesin/D-METHORPHAN HB 10 ML UNIT-DOSE CUPS PO PRN (10:04)
--- NOTE | 2019-08-02 12:51 | PN ---
Progress Note (short form) - Note Progress Note: PULMONARY DYSPNEIC [place] DOES NOT HAVE HOME O2 HARSH COUGH CONTINUES VSS/AFEBRILE Anicteric Heart: RRR Lung: distant breath sounds, scattered rhonchi and expiratory wheeze Abd: soft, nontender Ext: no edema CHART/ABS/MEDS/NOTES REVIEWED A/P Acute COPD Exacerbation r/o Pneumonia HTN GERD Smoker - IV medrol continues - inhaled bronchodilators - continue antibiotics - O2 to keep SpO2>90% - outpt f/u of chest imaging to ensure resolution of infiltrates - DVT prop - cough suppression Adair CANNON MD
[2019-08-02] MEDS: DEXTROMETHORPHAN/PROMETHAZINE 15 MG/6.25 MG/5 ML SYRUP PO PRN ×2 (15:38→22:13)
[2019-08-02] MEDS: ATORVASTATIN CA 10 MG TABLET (FP) PO SCH (21:50)
[2019-08-02] MEDS: MONTELUKAST NA 10 MG TABLET PO SCH (21:51)
[2019-08-02] MEDS ORDERED: MELATONIN 5 MG TABLETS PO PRN (23:38)
[2019-08-03] MEDS: ALBUTEROL SO4 0.083% IH SOL 2.5 MG/3 ML VIAL.NEB. NEB PRN (00:25)
[2019-08-03] MEDS: methylPREDNISolone NA SUCC 40 MG/1 ML VIAL IVPUSH SCH ×2 (01:04→10:28)
[2019-08-03] MEDS ORDERED: diphenhydrAMINE HCL 25 MG CAPSULE (FP) PO ONE (03:50)
[2019-08-03 07:01] LABS: BASO % 0.3 % (0-2.0); HEMATOCRIT 40.9 % (32.4-45.2); HEMOGLOBIN 13.7 GM/dL (10.7-15.3); LYMPH % 6.3 % (8-40); MCH 30.5 pg (25.7-33.7); MCHC 33.3 g/dl (32.0-36.0); MEAN CELL VOLUME 91.4 fl (80-96); MEAN PLT VOLUME 9.6 fl (7.5-11.1); MONO % 4.2 % (3.8-10.2); NEUT % 89.2 % (42.8-82.8); PLATELET COUNT 207 K/MM3 (134-434); RBC 4.48 M/mm3 (3.60-5.2); RDW 15.2 % (11.6-15.6); WHITE BLOOD COUNT 8.1 K/mm3 (4.0-10.0)
[2019-08-03 07:23] LABS: BLOOD UREA NITROGEN 33.7 mg/dL (7-18); CALCIUM 8.9 mg/dL (8.5-10.1); CREATININE 0.9 mg/dL (0.55-1.3); POTASSIUM 4.4 mmol/L (3.5-5.1)
[2019-08-03] MEDS: ALBUTEROL SO4 0.083% IH SOL 2.5 MG/3 ML VIAL.NEB. NEB SCH ×4 (07:28→20:35)
[2019-08-03] MEDS ORDERED: PT OWN MED DRAWER 7, Y5N ONE (10:18)
[2019-08-03 10:28] LABS: ANISOCYTOSIS 1+; MACROCYTOSIS 0; PLATELET ESTIMATE NORMAL
[2019-08-03] MEDS: amLODIPine BESYLATE 10 MG TABLET (FP) PO SCH (10:28)
[2019-08-03] MEDS: PANTOPRAZOLE 40 MG TABLET PO SCH (10:28)
[2019-08-03] MEDS: LISINOPRIL 20 MG TABLET (FP) PO SCH (10:28)
[2019-08-03] MEDS: HEPARIN NA (PORCINE) 5,000 UNITS/ML 1ML VIAL SQ SCH ×2 (10:28→21:17)
[2019-08-03] MEDS: FUROSEMIDE 40 MG TABLET (FP) PO SCH (10:28)
[2019-08-03] MEDS: TIOTROPIUM BROMIDE 2.5 MCG (SPIRIVA) RESPIMAT INHALER IH SCH (10:29)
[2019-08-03] MEDS: BUDESONIDE/FORMETEROL FUMARATE 160/4.5 mcg INHALER IH SCH ×2 (10:29→21:19)
--- NOTE | 2019-08-03 13:59 | PN ---
Progress Note, Physician Chief Complaint: Still c/o SOB - Current Medication List Current Medications: Active Medications Acetaminophen (Tylenol -) 1,000 mg PO Q6H PRN PRN Reason: PAIN Last Admin: 08/01/19 23:07 Dose: 1,000 mg Documented by: Albuterol Sulfate (Ventolin 0.083% Nebulizer Soln -) 1 amp NEB RQID SAL Last Admin: 08/03/19 11:07 Dose: 1 amp Documented by: Albuterol Sulfate (Ventolin 0.083% Nebulizer Soln -) 1 amp NEB Q1H PRN PRN Reason: SHORT OF BREATH/WHEEZING Last Admin: 08/03/19 00:25 Dose: 1 amp Documented by: Amlodipine Besylate (Norvasc -) 10 mg PO DAILY [facility] Last Admin: 08/03/19 10:28 Dose: 10 mg Documented by: Atorvastatin Calcium (Lipitor -) 10 mg PO HS [facility] Last Admin: 08/02/19 21:50 Dose: 10 mg Documented by: Benzocaine/Menthol (Cepacol Lozenge -) 1 each MM Q4H PRN PRN Reason: SORE THROAT Last Admin: 08/01/19 09:49 Dose: 1 each Documented by: Budesonide/Formoterol Fumarate (Symbicort 160/4.5mcg -) 2 puff IH BID [facility] Last Admin: 08/03/19 10:29 Dose: 2 puff Documented by: Furosemide (Lasix -) 40 mg PO DAILY [facility] Last Admin: 08/03/19 10:28 Dose: 40 mg Documented by: Heparin Sodium (Porcine) (Heparin -) 5,000 unit SQ BID [facility] Last Admin: 08/03/19 10:28 Dose: 5,000 unit Documented by: Levofloxacin (Levaquin 500 Mg Premixed Ivpb -) 500 mg in 100 mls @ 100 mls/hr IVPB DAILY [facility]; Protocol Last Admin: 08/03/19 10:28 Dose: 100 mls/hr Documented by: Lisinopril (Prinivil) 20 mg PO DAILY [facility] Last Admin: 08/03/19 10:28 Dose: 20 mg Documented by: Melatonin (Melatonin) 5 mg PO HS PRN PRN Reason: INSOMNIA Last Admin: 08/03/19 00:14 Dose: 5 mg Documented by: Methylprednisolone Sodium Succinate (Solu-Medrol -) 40 mg IVPUSH Q8H-IV SAL Last Admin: 08/03/19 10:28 Dose: 40 mg Documented by: Montelukast Sodium (Singulair -) 10 mg PO HS SAL Last Admin: 08/02/19 21:51 Dose: 10 mg Documented by: Pantoprazole Sodium (Protonix -) 40 mg PO DAILY [facility] Last Admin: 08/03/19 10:28 Dose: 40 mg Documented by: Promethazine HCl/Dextromethorphan (Phenergan-Dm Syrup -) 5 ml PO Q4H PRN PRN Reason: COUGH Last Admin: 08/02/19 22:13 Dose: 5 ml Documented by: Tiotropium Spencer (Spiriva Respimat) 2 puff IH DAILY [facility] Last Admin: 08/03/19 10:29 Dose: 2 puff Documented by: - Objective Vital Signs: Vital Signs Temperature 98.8 F 08/03/19 09:00 Pulse Rate 70 08/03/19 09:00 Respiratory Rate 20 08/03/19 09:00 Blood Pressure 129/79 08/03/19 09:00 O2 Sat by Pulse Oximetry (%) 96 08/03/19 09:00 Elderly F not in distress c/o cough HEENT: Mm moist, no anemia NECK: No JVD No Bruit CHEST: B/L wheezes CVS: S1S2 R ABD: No distention, non tender, BS + EXT:Left Ue infiltrated IV Trace edema edema [employer]: alert non focal Labs: CBC, BMP 08/03/19 05:48 08/03/19 05:48 Problem List - Problems (1) COPD with acute exacerbation Assessment/Plan: Cont IV steroids, Duo neb, symbicort and O2 inhalation with Levofloxacin F/U Pulmonary recommendation. Code(s): J44.1 - CHRONIC OBSTRUCTIVE PULMONARY DISEASE W (ACUTE) EXACERBATION (2) HTN (hypertension) Assessment/Plan: Cont all home meds Code(s): I10 - ESSENTIAL (PRIMARY) HYPERTENSION (3) Hypercholesteremia Assessment/Plan: Cont statin Code(s): E78.00 - PURE HYPERCHOLESTEROLEMIA, UNSPECIFIED (4) Lumbar disc disease Assessment/Plan: Cont pain meds Code(s): M51.9 - UNSP THORACIC, THORACOLUM AND LUMBOSACR INTVRT DISC DISORDER
--- NOTE | 2019-08-03 14:19 | PN ---
Progress Note (short form) - Note Progress Note: PULMONARY HARSH COUGH IS LESS VSS/AFEBRILE Anicteric Heart: RRR Lung: distant breath sounds, scattered rhonchi and expiratory wheeze Abd: soft, nontender Ext: no edema CHART/ABS/MEDS/NOTES REVIEWED A/P Acute COPD Exacerbation r/o Pneumonia HTN GERD Smoker - IV medrol chnged to prednisone - inhaled bronchodilators - continue antibiotics - O2 to keep SpO2>90% - outpt f/u of chest imaging to ensure resolution of infiltrates - DVT prop - cough suppression - discharge planning Adair CANNON MD
[2019-08-03] MEDS: predniSONE 20 MG TABLET (UD) PO SCH (14:28)
[2019-08-03] MEDS: ATORVASTATIN CA 10 MG TABLET (FP) PO SCH (21:17)
[2019-08-03] MEDS: MONTELUKAST NA 10 MG TABLET PO SCH (21:18)
[2019-08-03] MEDS: BENZOCAINE/MENTH/CETYLPYRD CL 1 EACH LOZENGE MM PRN (21:20)
[2019-08-03] MEDS: DEXTROMETHORPHAN/PROMETHAZINE 15 MG/6.25 MG/5 ML SYRUP PO PRN (21:20)
[2019-08-04] MEDS: ALBUTEROL SO4 0.083% IH SOL 2.5 MG/3 ML VIAL.NEB. NEB PRN ×2 (04:48→13:53)
[2019-08-04] MEDS: ALBUTEROL SO4 0.083% IH SOL 2.5 MG/3 ML VIAL.NEB. NEB SCH ×2 (07:28→11:25)
[2019-08-04 08:20] LABS: BASO % 0.2 % (0-2.0); HEMOGLOBIN 13.7 GM/dL (10.7-15.3); LYMPH % 11.4 % (8-40); MCH 30.5 pg (25.7-33.7); MCHC 33.4 g/dl (32.0-36.0); MEAN CELL VOLUME 91.2 fl (80-96); MEAN PLT VOLUME 9.2 fl (7.5-11.1); MONO % 6.9 % (3.8-10.2); NEUT % 81.5 % (42.8-82.8); PLATELET COUNT 210 K/MM3 (134-434); RBC 4.49 M/mm3 (3.60-5.2); RDW 15.2 % (11.6-15.6)
[2019-08-04 08:41] LABS: BLOOD UREA NITROGEN 35.4 mg/dL (7-18); CALCIUM 8.8 mg/dL (8.5-10.1); CREATININE 0.8 mg/dL (0.55-1.3); POTASSIUM 4.3 mmol/L (3.5-5.1)
--- NOTE | 2019-08-04 09:21 | PN ---
Progress Note (short form) - Note Progress Note: CBC, BMP 08/04/19 07:35 08/04/19 07:35 Vital Signs Period Temp Pulse Resp BP Sys/Hadley Pulse Ox Last 24 Hr 97.7 F-98.0 F 68-84 20-20 136-163/69-99 95 s1s2 rrr lungs scattered bilateral faint wheezing abd soft +pedal edema aaox3 feeling better, afebrile on oral prednisone acute copd exacerbation htn edema-check echo r/o lv dysfunction cxr with questionable density-she had chest ct at [facility] was ok, in my office in jan 2019 was ok will do outpt imaging in 4 weeks dc planning today after pre and post o2 evaluation
--- NOTE | 2019-08-04 10:02 | PN ---
Progress Note (short form) - Note Progress Note: PULMONARY Breathing better but still with wheezing and cough. Vital Signs Period Temp Pulse Resp BP Sys/Hadley Pulse Ox Last 24 Hr 97.7 F-98.0 F 68-84 20-20 136-163/69-99 95 Gen: mildly tachypneic with speaking Heart: RRR Lung: distant breath sounds, scattered rhonchi Abd: soft, nontender Ext: no edema CBC, BMP 08/04/19 07:35 08/04/19 07:35 Active Medications Acetaminophen (Tylenol -) 1,000 mg PO Q6H PRN PRN Reason: PAIN Last Admin: 08/01/19 23:07 Dose: 1,000 mg Documented by: Albuterol Sulfate (Ventolin 0.083% Nebulizer Soln -) 1 amp NEB RQID [facility] Last Admin: 08/04/19 07:28 Dose: 1 amp Documented by: Albuterol Sulfate (Ventolin 0.083% Nebulizer Soln -) 1 amp NEB Q1H PRN PRN Reason: SHORT OF BREATH/WHEEZING Last Admin: 08/04/19 04:48 Dose: 1 amp Documented by: Amlodipine Besylate (Norvasc -) 10 mg PO DAILY [facility] Last Admin: 08/03/19 10:28 Dose: 10 mg Documented by: Atorvastatin Calcium (Lipitor -) 10 mg PO HS [facility] Last Admin: 08/03/19 21:17 Dose: 10 mg Documented by: Benzocaine/Menthol (Cepacol Lozenge -) 1 each MM Q4H PRN PRN Reason: SORE THROAT Last Admin: 08/03/19 21:20 Dose: 1 each Documented by: Budesonide/Formoterol Fumarate (Symbicort 160/4.5mcg -) 2 puff IH BID [facility] Last Admin: 08/03/19 21:19 Dose: 2 puff Documented by: Furosemide (Lasix -) 40 mg PO DAILY [facility] Last Admin: 08/03/19 10:28 Dose: 40 mg Documented by: Heparin Sodium (Porcine) (Heparin -) 5,000 unit SQ BID [facility] Last Admin: 08/03/19 21:17 Dose: 5,000 unit Documented by: Levofloxacin (Levaquin -) 500 mg PO DAILY@0600 [facility] Last Admin: 08/04/19 05:20 Dose: 500 mg Documented by: Lisinopril (Prinivil) 20 mg PO DAILY [facility] Last Admin: 08/03/19 10:28 Dose: 20 mg Documented by: Melatonin (Melatonin) 5 mg PO HS PRN PRN Reason: INSOMNIA Last Admin: 08/03/19 00:14 Dose: 5 mg Documented by: Montelukast Sodium (Singulair -) 10 mg PO HS [facility] Last Admin: 08/03/19 21:18 Dose: 10 mg Documented by: Pantoprazole Sodium (Protonix -) 40 mg PO DAILY [facility] Last Admin: 08/03/19 10:28 Dose: 40 mg Documented by: Prednisone (Deltasone -) 40 mg PO DAILY [facility] Last Admin: 08/03/19 14:28 Dose: 40 mg Documented by: Promethazine HCl/Dextromethorphan (Phenergan-Dm Syrup -) 5 ml PO Q4H PRN PRN Reason: COUGH Last Admin: 08/03/19 21:20 Dose: 5 ml Documented by: Tiotropium Arrington (Spiriva Respimat) 2 puff IH DAILY [facility] Last Admin: 08/03/19 10:29 Dose: 2 puff Documented by: A/P Acute COPD Exacerbation r/o Pneumonia HTN GERD Smoker - prednisone taper - inhaled bronchodilators - complete antibiotics - O2 to keep SpO2>90%, check ambulatory SpO2 on room air to assess for home O2 - outpt f/u of chest imaging to ensure resolution of infiltrates - DVT prophylaxis
[2019-08-04] MEDS: predniSONE 20 MG TABLET (UD) PO SCH (11:11)
[2019-08-04] MEDS: amLODIPine BESYLATE 10 MG TABLET (FP) PO SCH (11:11)
[2019-08-04] MEDS: FUROSEMIDE 40 MG TABLET (FP) PO SCH (11:11)
[2019-08-04] MEDS: LISINOPRIL 20 MG TABLET (FP) PO SCH (11:12)
[2019-08-04] MEDS: PANTOPRAZOLE 40 MG TABLET PO SCH (11:12)
[2019-08-04] MEDS: TIOTROPIUM BROMIDE 2.5 MCG (SPIRIVA) RESPIMAT INHALER IH SCH (11:12)
[2019-08-04] MEDS: HEPARIN NA (PORCINE) 5,000 UNITS/ML 1ML VIAL SQ SCH (11:12)
[2019-08-04] MEDS: BUDESONIDE/FORMETEROL FUMARATE 160/4.5 mcg INHALER IH SCH (11:13)
[2019-08-04 13:24] LABS: ANISOCYTOSIS 1+; MACROCYTOSIS 0; PLATELET ESTIMATE NORMAL
--- NOTE | 2019-08-04 13:36 | DS ---
Physical Examination Vital Signs: Vital Signs Temperature 98.6 F 08/04/19 11:16 Pulse Rate 77 08/04/19 11:16 Respiratory Rate 18 08/04/19 11:16 Blood Pressure 146/71 08/04/19 11:16 O2 Sat by Pulse Oximetry (%) 93 L 08/04/19 11:15 Constitutional: Yes: Calm Eyes: Yes: EOM Intact HENT: Yes: Normocephalic Neck: Yes: Trachea Midline Cardiovascular: Yes: Regular Rate and Rhythm Respiratory: Yes: Wheezes (scattered) Gastrointestinal: Yes: Normal Bowel Sounds, Soft Edema: Yes Edema: LLE: Trace, RLE: Trace Peripheral Pulses WNL: Yes Labs: CBC, BMP 08/04/19 07:35 08/04/19 07:35 Discharge Summary Problems reviewed: Yes Reason For Visit: SOB PULMONARY EMPHYSEMA Current Active Problems COPD (chronic obstructive pulmonary disease) with emphysema (Acute) COPD with acute exacerbation (Acute) Community acquired pneumonia (Acute) GERD (gastroesophageal reflux disease) (Acute) HTN (hypertension) (Acute) Hypercholesteremia (Acute) Lumbar disc disease (Acute) Shortness of breath (Acute) Tobacco dependence (Acute) Hospital Course: admitted for acute copd exacerbation and underlying pna better with iv steroids completed a week of oral abx pre and post o2 was 93% does not meet criteria for home o2 on oral prednisone stable to in home with close Condition: Fair - Instructions Diet, Activity, Other Instructions: f./up with Disposition: VNS/HOME HEALTH CARE - Home Medications Comprehensive Discharge Medication List: Ambulatory Orders Albuterol Sulfate [Albuterol Sulfate Hfa] 2 inh IN Q4HWA PRN 07/28/19 Budesonide/Formeterol Fumarate [SYMBICORT 160/4.5mcg -] 2 inh IN BID 07/28/19 Montelukast Na [Singulair -] 10 mg PO HS 07/28/19 Pantoprazole Sodium 40 mg PO DAILY 07/28/19 Amlodipine Besylate [Norvasc -] 10 mg PO DAILY tablet 08/04/19 Codeine Phosphate/Guaifenesin [Guaifenesin-Codeine Syrup] 10 ml PO TID PRN #473 ml MDD 40ml 08/04/19 Furosemide [Lasix -] 40 mg PO DAILY #30 tablet 08/04/19 Lisinopril [Prinivil] 20 mg PO DAILY tablet 08/04/19 predniSONE [Deltasone -] 20 mg PO DAILY #15 tablet 08/04/19
[2019-08-04 15:38] VITALS: BP 150/59; PULSE 80; TEMP 98.4
== END 2019-08-04 15:40 | disposition home health service (06) | DRG 190 ==
LOC: JER 15:47 → JERBED 18:35 → J8W 22:24
PROVIDERS: ADMIT Internal Medicine; ATTEND Internal Medicine
DX: J44.0 Chronic obstructive pulmonary disease with (acute) lower respiratory infection (principal); J18.9 Pneumonia, unspecified organism; I10 Essential (primary) hypertension; J44.1 Chronic obstructive pulmonary disease with (acute) exacerbation; M51.36 Other intervertebral disc degeneration, lumbar region; K21.9 Gastro-esophageal reflux disease without esophagitis; F17.210 Nicotine dependence, cigarettes, uncomplicated; M54.5 Low back pain; Z96.653 Presence of artificial knee joint, bilateral
CPT/HCPCS: 36415; 36600; 71045-TC-FY; 80048; 80053; 81003; 82550; 82803; 83735; 84484; 85025; 85027; 87070; 87205; 87899; 93005; 93010; 93306-TC; 94640; 94660; 94761; 97116-GP; 97161-GP; 99291; J1644

== ENCOUNTER 2020-02-10 15:07 | Inpatient (IN) | payer OTHER, BC ==
--- NOTE | 2020-02-10 15:29 | PDOC ---
Rapid Medical Evaluation Chief Complaint: Shortness of Breath Time Seen by Provider: 02/10/20 15:16 Medical Evaluation: Allergies Allergy/AdvReac Type Severity Reaction Status Date / Time No Known Allergies Allergy Verified 02/10/20 15:19 Vital Signs Temp Pulse Resp BP Pulse Ox 97.6 F 94 H 22 H 178/86 H 94 L 02/10/20 15:17 02/10/20 15:17 02/10/20 15:17 02/10/20 15:17 02/10/20 15:17 02/10/20 15:27 I have performed a brief in-person evaluation of this patient The patient presents with a chief complaint of: Worsening SOB, former smoker, COPD not on oxygen, HTN, HLD, was covid + in 11/14 Pertinent physical exam findings:sating 94% on RA, tachypneic and hypertensive I have ordered the following:placed on oxygen tank at triage, ekg/cxr/labs The patient will proceed to the ED for further evaluation 02/10/20 15:29 Discharge Disposition - Diagnosis SOB (shortness of breath) - Discharge Dispostion Last Admission D/C Date: 11/11/19 - Referrals - Patient Instructions - Post Discharge Activity
[2020-02-10 16:18] LABS: VENOUS BASE EXCESS -0.7 mmol/L (-2-2); VENOUS O2 SATURATION 52.6 % (70-80); VENOUS PCO2 48.2 mmHg (38-52); VENOUS PH 7.342 (7.310-7.410)
[2020-02-10] MEDS ORDERED: ACETAMINOPHEN 325 MG TABLET (FP) PO ONE (16:38)
[2020-02-10 16:40] LABS: BASO % 0.7 % (0-2.0); EOS % 1.5 % (0-4.5); HEMATOCRIT 38.8 % (32.4-45.2); HEMOGLOBIN 12.9 GM/dL (10.7-15.3); LYMPH % 22.5 % (8-40); MCH 30.2 pg (25.7-33.7); MCHC 33.3 g/dl (32.0-36.0); MEAN CELL VOLUME 90.8 fl (80-96); MEAN PLT VOLUME 9.1 fl (7.5-11.1); MONO % 6.7 % (3.8-10.2); NEUT % 68.6 % (42.8-82.8); PLATELET COUNT 192 K/MM3 (134-434); RBC 4.28 M/mm3 (3.60-5.2); RDW 13.9 % (11.6-15.6); WHITE BLOOD COUNT 6.6 K/mm3 (4.0-10.0)
[2020-02-10 16:53] LABS: ALBUMIN 3.6 g/dl (3.4-5.0); ALK PHOS 99 U/L (45-117); ANION GAP 7 MMOL/L (8-16); BILIRUBIN,TOTAL 0.6 mg/dL (0.2-1); BLOOD UREA NITROGEN 17.8 mg/dL (7-18); CALCIUM 8.8 mg/dL (8.5-10.1); CHLORIDE 107 mmol/L (98-107); CO2 29 mmol/L (21-32); CREATININE 0.7 mg/dL (0.55-1.3); GLUCOSE,RANDOM 102 mg/dL (74-106); POTASSIUM 4.8 mmol/L (3.5-5.1); SGOT/AST 40 U/L (15-37); SGPT/ALT 34 U/L (13-61); SODIUM 142 mmol/L (136-145); TOT PROT 6.4 g/dl (6.4-8.2)
[2020-02-10] MEDS ORDERED: ACETAMINOPHEN 325 MG TABLET (FP) ONE (17:01)
[2020-02-10] MEDS ORDERED: ALBUTEROL SO4 2.5/IPRATROPIUM 0.5 INH SOL 3 ML VIAL.NEB. NEB ONE ×5 (17:04→21:26)
--- NOTE | 2020-02-10 17:15 | PDOC ---
History of Present Illness - General Chief Complaint: Shortness of Breath Stated Complaint: SOB Time Seen by Provider: 02/10/20 15:16 - History of Present Illness Initial Comments: HPI Pt is a 74 yo F with PMH of COPD (on 2L home O2; multiple admissions for COPD exacerbations in the past), HTN, smoking hx, and lumbar disc disease presenting with increased SOB x 2 days. Pt notes that she has dyspnea with even minimal exertion at baseline but noticed she is been having increasing SOB at rest with some episodes where she has to gasp for air and some wheezing. She reports that her symptoms were preceded by the development of a non-productive cough, congestion, sneezing, fatigue, and generalized weakness about a week ago. She reports that has been using her COPD treatments and home O2 as prescribed. She spoke to her PCP on the phone who told her to try increasing the use of her inhalers; when this did not result in improvement, she was advised by her PCP to come to the ED. Denies chest pain, fevers, chills, sore throat, nausea, vomiting, diarrhea, constipation, or lower extremity increased swelling. PMHX: as in HPI PSHX: see below Meds: Home Medications Medication Instructions Recorded Albuterol Sulfate Hfa 2 inh PRN PRN 10/31/19 Furosemide [Lasix] 40 mg PO DAILY 10/31/19 Lisinopril 20 mg PO DAILY 10/31/19 Pantoprazole Sodium [Protonix] 40 mg PO DAILY 10/31/19 Albuterol Sulfate Inhaler - 2 puff IH QID inhaler 11/10/19 [Ventolin HFA Inhaler -] Amlodipine Besylate [Norvasc -] 10 mg PO DAILY tablet 11/10/19 Budesonide/Formeterol Fumarate 2 puff IH BID inhaler 11/10/19 [SYMBICORT 160/4.5mcg -] Guaifenesin AC [Robitussin AC -] 10 ml PO Q8H PRN ud 11/10/19 Methylprednisolone [Medrol Dose 4 mg PO ASDIR #21 tablet 11/10/19 Sarthak] Tiotropium Roosevelt [Spiriva 2 puff IH DAILY inhaler 11/10/19 Respimat] Zolpidem Tartrate [Ambien] 5 mg PO HS PRN #10 tablet MDD 1 11/10/19 metFORMIN HCL [Glucophage -] 500 mg PO BID@0700,1630 #60 tablet 11/10/19 Allergies: nkda Tob: quit smoking about 1 year ago; 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 Henna ALTAMIRANO GENERAL/CONSTITUTIONAL: No fever or chills. + Generalized weakness. HEAD, EYES, EARS, NOSE AND THROAT: No change in vision. No ear pain or discharge. No sore throat. CARDIOVASCULAR: No chest pain. + SOB RESPIRATORY: No wheezing, or hemoptysis. + non productive cough GASTROINTESTINAL: No nausea, vomiting, diarrhea or constipation. GENITOURINARY: No dysuria, frequency, or change in urination. MUSCULOSKELETAL: No joint or muscle swelling or pain. No neck or back pain. SKIN: No rash NEUROLOGIC: No headache, vertigo, loss of consciousness, or change in strength/sensation. ENDOCRINE: No increased thirst. No abnormal weight change HEMATOLOGIC/LYMPHATIC: No anemia, easy bleeding, or history of blood clots. ALLERGIC/IMMUNOLOGIC: No hives or skin allergy. PE GENERAL: Awake, alert, and fully oriented, in no acute distress; O2 97% on RA at rest; 100% on 2L NC HEAD: No signs of trauma, normocephalic, atraumatic EYES: PERRLA, EOMI, sclera anicteric, conjunctiva clear ENT: Auricles normal inspection, hearing grossly normal, nares patent, oropharynx clear without exudates. Moist mucosa NECK: Normal ROM, supple, no lymphadenopathy, JVD, or masses LUNGS: No distress, speaks full sentences, decreased breath sounds throughout; wheezing noted only with exertion HEART: Regular rate and rhythm, normal S1 and S2, no murmurs, rubs or gallops, peripheral pulses normal and equal bilaterally. ABDOMEN: Soft, nontender, normoactive bowel sounds. No guarding, no rebound. No masses EXTREMITIES : Normal inspection, Normal range of motion, no edema. No clubbing or cyanosis. R sided calf tenderness. NEUROLOGICAL: Normal speech, normal gait, no focal sensorimotor deficits SKIN: Warm, Dry, normal turgor, no rashes or lesions noted 02/10/20 18:55 Past History - Medical History Allergies/Adverse Reactions: Allergies Allergy/AdvReac Type Severity Reaction Status Date / Time No Known Allergies Allergy Verified 02/10/20 15:19 Home Medications: Ambulatory Orders Albuterol Sulfate Hfa 2 inh PRN PRN 10/31/19 Furosemide [Lasix] 40 mg PO DAILY 10/31/19 Lisinopril 20 mg PO DAILY 10/31/19 Pantoprazole Sodium [Protonix] 40 mg PO DAILY 10/31/19 Albuterol Sulfate Inhaler - [Ventolin HFA Inhaler -] 2 puff IH QID inhaler 11/10/19 Amlodipine Besylate [Norvasc -] 10 mg PO DAILY tablet 11/10/19 Budesonide/Formeterol Fumarate [SYMBICORT 160/4.5mcg -] 2 puff IH BID inhaler 11/10/19 Guaifenesin AC [Robitussin AC -] 10 ml PO Q8H PRN ud 11/10/19 Methylprednisolone [Medrol Dose Sarthak] 4 mg PO ASDIR #21 tablet 11/10/19 Tiotropium Roosevelt [Spiriva Respimat] 2 puff IH DAILY inhaler 11/10/19 Zolpidem Tartrate [Ambien] 5 mg PO HS PRN #10 tablet MDD 1 11/10/19 metFORMIN HCL [Glucophage -] 500 mg PO BID@0700,1630 #60 tablet 11/10/19 Cardiac Disorders: Yes COPD: Yes HTN: Yes - Surgical History Appendectomy: Yes Orthopedic Surgery: (bilat TKR left hip replacement) - Immunization History Immunization Up to Date: No - Psycho-Social/Smoking History Smoking History: Former smoker Have you smoked in the past 12 months: No Number of Cigarettes Smoked Daily: 10 (reports 10-20) If you are a former smoker, when did you quit?: 05/15 Information on smoking cessation initiated: No 'Breaking Loose' booklet given: 07/28/19 *Physical Exam - Vital Signs Last Vital Signs Temp Pulse Resp BP Pulse Ox 97.6 F 88 22 H 178/86 H 98 02/10/20 15:17 02/10/20 15:19 02/10/20 15:17 02/10/20 15:17 02/10/20 15:19 ED Treatment Course - LABORATORY CBC & Chemistry Diagram: 02/11/20 06:48 02/11/20 06:48 - ADDITIONAL ORDERS Additional order review: Laboratory Results 02/10/20 02/10/20 15:46 15:46 VBG pH 7.342 POC VBG pCO2 48.2 POC VBG pO2 29.8 VBG HCO3 25.5 VBG O2 Sat (Erna) 52.6 L VBG Base Excess -0.7 Sodium 142 Potassium 4.8 Chloride 107 Carbon Dioxide 29 Anion Gap 7 L BUN 17.8 Creatinine 0.7 Est GFR (CKD-EPI)AfAm 97.54 Est GFR (CKD-EPI)NonAf 84.16 Random Glucose 102 Calcium 8.8 Total Bilirubin 0.6 AST 40 H ALT 34 Alkaline Phosphatase 99 Creatine Kinase 124 Troponin I < 0.02 Total Protein 6.4 Albumin 3.6 - RADIOLOGY Radiology Studies Ordered: Category Date Time Status DUPLEX VASCUL US-2LEGS [US] Stat Ultrasound 02/10/20 16:37 Ordered - Medications Given in the ED: ED Medications Discontinued Medications Generic Name Dose Route Start Last Admin Trade Name Freq PRN Reason Stop Dose Admin Acetaminophen 650 mg 02/10/20 16:38 02/10/20 17:02 Tylenol - PO 02/10/20 16:39 650 mg ONCE ONE Administration Medical Decision Making - Medical Decision Making MDM Pt is a 74 yo F with PMH of COPD (on 2L home O2; multiple admissions for COPD exacerbations in the past), HTN, smoking hx, and lumbar disc disease presenting with increased SOB x 2 days. Pt notes that she has dyspnea with even minimal exertion at baseline but noticed she is been having increasing SOB at rest with some episodes where she has to gasp for air and some wheezing. She reports that her symptoms were preceded by the development of a non-productive cough, congestion, sneezing, fatigue, and generalized weakness about a week ago. DDX including but not limited to: COPD exacerbation, CHF, PE/DVT, URI, pneumonia W/U: - CBC, CMP, BNP, Trop, D-Dimer - CXR - Widening of superior mediastinum. Consider chest CT follow up. Prominent bronchovascular markings. Hazy obstructions of bilateral costophrenic angles. Trop neg D-dimer 951 - EKG - NSR 79 bpm; CT interval 170, QRS 78, QT/Qtc 391/449 - DVT studies (venous doppler US) TX: - IV solumedrol - Duonebs - PO tylenol 02/10/20 18:24 Widening of superior mediastinum. Consider chest CT follow up. Prominent bron chovascular markings. Hazy obstructions of bilateral costophrenic angles. Trop neg D-dimer 951 Will get CTA to r/o PE labs otherwise unremarkable 02/10/20 18:45 DVT studies - showing now DVTs awaiting BNP and CTA for dispo 02/10/20 19:00 pt signed out to night team 02/10/20 19:05 Discharge - Discharge Information Problems reviewed: Yes Clinical Impression/Diagnosis: SOB (shortness of breath), COPD exacerbation Condition: Guarded - Admission Yes - Follow up/Referral - Patient Discharge Instructions - Post Discharge Activity
[2020-02-10] MEDS ORDERED: methylPREDNISolone NA SUCC 125 MG/2 ML VIAL IVPB ONE (17:43)
--- OUTSIDE RECORDS SUMMARY | 2020-02-10 17:59 | XMS ---
:1945 Author Organization [facility] Support Name Relationship Address Phone RE, RETIRED Unavailable Unavailable Unavailable RE Unavailable Unavailable Unavailable JA DUFFY DAUGHTER N/A [facility] [id number] JA DUFFY Child N/A Unavailable [facility], [id number] Re-disclosure Warning The records that you are about to access may contain information from federally- assisted alcohol or drug abuse programs. If such information is present, then the following federally mandated warning applies: This information has been disclosed to you from records protected by federal confidentiality rules (42 CFR part 2). The federal rules prohibit you from making any further disclosure of this information unless further disclosure is expressly permitted by the written consent of the person to whom it pertains or as otherwise permitted by 42 CFR part 2. A general authorization for the release of medical or other information is NOT sufficient for this purpose. The Federal rules restrict any use of the information to criminally investigate or prosecute any alcohol or drug abuse patient.The records that you are about to access may contain highly sensitive health information, the redisclosure of which is protected by Article 27-F of the [facility] Public Health law. If you continue you may haveaccess to information: Regarding HIV / AIDS; Provided by facilities licensed or operated by the [facility] Office of Mental Health; or Provided by the [facility] Office for People With Developmental Disabilities. If such information is present, then the following [facility] mandated warning applies: This information has been disclosed to you from confidential records which are protected by state law. State law prohibits you from making any further disclosure of this information without the specific written consent of the person to whom it pertains, or as otherwise permitted by law. Any unauthorized further disclosure in violation of state law may result in a fine or mcc sentence or both. A general authorization for the release of medical or other information is NOT sufficient authorization for further disclosure. Insurance Providers Payer name Policy type Policy ID Covered Covered republican's Policy P callum / Coverage republican ID relationship to Kim Inf ormation type kim GHI CBP [id number] SP [id number] OUTPT BC PPO [id number] SP [id number] MEDICARE [id number] SP [id number] GHI CBP [id number] SP [id number] OUTPT Results ID Date Data Source [id number] 11/06/2019 10:50:00 AM EDT [facility] Name Value Range Interpretation Description Data Sup porting Code Source(s) Document(s ) SARS [facility] CORONAVIRUS 2 RNA This lab was ordered by [facility] and reported by [facility]. ID Date Data Source [id number] 10/31/2019 06:56:00 PM EDT [facility] Name Value Range Interpretation Description Data Sup porting Code Source(s) Document(s ) SARS [facility] CORONAVIRUS 2 RNA This lab was ordered by [facility] and reported by [facility]. Procedure
[2020-02-10] MEDS ORDERED: methylPREDNISolone NA SUCC 125 MG/2 ML VIAL ONE (18:06)
--- NOTE | 2020-02-10 18:20 | PDOC ---
Documentation entered by Graham Gardner SCRIBE, acting as scribe for Minnie Fields MD. Minnie Fields MD: This documentation has been prepared by the [employer]ob[employer] cotton Angel, SCRIBE, under my direction and personally reviewed by me in its entirety. I confirm that the documentation accurately reflects all work, treatment, procedures, and medical decision making performed by me. Attending Attestation - Resident Resident Name: Branden Pratt - ED Attending Attestation I have performed the following: I have examined & evaluated the patient, The case was reviewed & discussed with the resident, I agree w/resident's findings & plan, Exceptions are as noted - HPI HPI: 02/10/20 17:45 74 yo female with PMH copd with home O2 nasal cannula has had increasing dyspnea even at rest. Dr [facility] 02/10/20 17:51 - Physicial Exam PE: 02/10/20 17:52 74 yo female p/w increasing shortness of breath head ncat neck supple lungs scattered expiratory wheezing cvs [id number] abdomen nontender extremities no deformities, no erythema,motor strength 5/5 b/l skin warm and dry neuro [id number] 02/10/20 19:49 - Medical Decision Making 02/10/20 17:54 Ultrssound to r/o dvt cbc,comp,troponin,cxr,ct scan chest 02/10/20 18:05 Differential diagnosis: includes copd exacerbation, PE,ACS plan resp tx,steroids,US,admission 02/10/20 18:20 d dimer is 951 will obtain CTA chest if duplex doppler is negaitve 02/10/20 20:02 duplex doppler NEGATIVE for dvt plan ADMIT copd exacerbation 02/10/20 22:24 cta chest NEGATIVE for PE Discharge - Discharge Information Problems reviewed: Yes Clinical Impression/Diagnosis: SOB (shortness of breath) - Follow up/Referral - Patient Discharge Instructions - Post Discharge Activity
--- NOTE | 2020-02-10 19:28 | PDOC ---
*Physical Exam - Vital Signs Last Vital Signs Temp Pulse Resp BP Pulse Ox 97.6 F 77 23 H 180/98 H 99 02/10/20 15:17 02/10/20 18:27 02/10/20 18:27 02/10/20 18:27 02/10/20 18:27 ED Treatment Course - LABORATORY CBC & Chemistry Diagram: 02/11/20 06:48 02/11/20 06:48 - ADDITIONAL ORDERS Additional order review: Laboratory Results 02/10/20 02/10/20 02/10/20 15:46 15:46 15:46 D-Dimer 951 H VBG pH 7.342 POC VBG pCO2 48.2 POC VBG pO2 29.8 VBG HCO3 25.5 VBG O2 Sat (Erna) 52.6 L VBG Base Excess -0.7 Sodium 142 Potassium 4.8 Chloride 107 Carbon Dioxide 29 Anion Gap 7 L BUN 17.8 Creatinine 0.7 Est GFR (CKD-EPI)AfAm 97.54 Est GFR (CKD-EPI)NonAf 84.16 Random Glucose 102 Calcium 8.8 Total Bilirubin 0.6 AST 40 H ALT 34 Alkaline Phosphatase 99 Creatine Kinase 124 Troponin I < 0.02 B-Natriuretic Peptide 169.0 Total Protein 6.4 Albumin 3.6 02/10/20 15:46 RBC 4.28 MCV 90.8 MCHC 33.3 RDW 13.9 D MPV 9.1 Neutrophils % 68.6 D Lymphocytes % 22.5 D Monocytes % 6.7 Eosinophils % 1.5 D Basophils % 0.7 - Medications Given in the ED: ED Medications Discontinued Medications Generic Name Dose Route Start Last Admin Trade Name Rich PRN Reason Stop Dose Admin Acetaminophen 650 mg 02/10/20 16:38 02/10/20 17:02 Tylenol - PO 02/10/20 16:39 650 mg ONCE ONE Administration Albuterol/Ipratropium 1 amp 02/10/20 17:12 02/10/20 17:14 Duoneb - NEB 02/10/20 17:13 1 amp ONCE ONE Administration Methylprednisolone Sodium Succinate 125 mg 02/10/20 17:43 02/10/20 18:07 Solu-Medrol - IVPB 02/10/20 17:44 125 mg ONCE ONE Administration Medical Decision Making - Medical Decision Making 02/10/20 19:27 Pt received on s/o from Dr. Pratt. This is a 74 y/o female with PMH significant for COPD presenting today with shortness of breath and dyspnea on mild exertion. ED course: duonebs Pending: CTA, BNP. Dispo: likely admit for COPD exacerbation 02/10/20 20:49 Labs reviewed. BNP wnl. Laboratory Last Values WBC 6.6 K/mm3 (4.0-10.0) 02/10/20 15:46 RBC 4.28 M/mm3 (3.60-5.2) 02/10/20 15:46 Hgb 12.9 GM/dL (10.7-15.3) 02/10/20 15:46 Hct 38.8 % (32.4-45.2) 02/10/20 15:46 MCV 90.8 fl (80-96) 02/10/20 15:46 MCH 30.2 pg (25.7-33.7) 02/10/20 15:46 MCHC 33.3 g/dl (32.0-36.0) 02/10/20 15:46 RDW 13.9 % (11.6-15.6) D 02/10/20 15:46 Plt Count 192 K/MM3 (134-434) 02/10/20 15:46 MPV 9.1 fl (7.5-11.1) 02/10/20 15:46 Absolute Neuts (auto) 4.5 K/mm3 (1.5-8.0) 02/10/20 15:46 Neutrophils % 68.6 % (42.8-82.8) D 02/10/20 15:46 Lymphocytes % 22.5 % (8-40) D 02/10/20 15:46 Monocytes % 6.7 % (3.8-10.2) 02/10/20 15:46 Eosinophils % 1.5 % (0-4.5) D 02/10/20 15:46 Basophils % 0.7 % (0-2.0) 02/10/20 15:46 Nucleated RBC % 0 % (0-0) 02/10/20 15:46 D-Dimer 951 ng/ml (0-500) H 02/10/20 15:46 VBG pH 7.342 (7.310-7.410) 02/10/20 15:46 POC VBG pCO2 48.2 mmHg (38-52) 02/10/20 15:46 POC VBG pO2 29.8 mmHg (28-48) 02/10/20 15:46 VBG HCO3 25.5 mmol/L (23-29) 02/10/20 15:46 VBG O2 Sat (Erna) 52.6 % (70-80) L 02/10/20 15:46 VBG Base Excess -0.7 mmol/L (-2-2) 02/10/20 15:46 Sodium 142 mmol/L (136-145) 02/10/20 15:46 Potassium 4.8 mmol/L (3.5-5.1) 02/10/20 15:46 Chloride 107 mmol/L (98-107) 02/10/20 15:46 Carbon Dioxide 29 mmol/L (21-32) 02/10/20 15:46 Anion Gap 7 MMOL/L (8-16) L 02/10/20 15:46 BUN 17.8 mg/dL (7-18) 02/10/20 15:46 Creatinine 0.7 mg/dL (0.55-1.3) 02/10/20 15:46 Est GFR (CKD-EPI)AfAm 97.54 02/10/20 15:46 Est GFR (CKD-EPI)NonAf 84.16 02/10/20 15:46 Random Glucose 102 mg/dL (74-106) 02/10/20 15:46 Calcium 8.8 mg/dL (8.5-10.1) 02/10/20 15:46 Total Bilirubin 0.6 mg/dL (0.2-1) 02/10/20 15:46 AST 40 U/L (15-37) H 02/10/20 15:46 ALT 34 U/L (13-61) 02/10/20 15:46 Alkaline Phosphatase 99 U/L (45-117) 02/10/20 15:46 Creatine Kinase 124 U/L (26-192) 02/10/20 15:46 Troponin I < 0.02 ng/ml (0.00-0.05) 02/10/20 15:46 B-Natriuretic Peptide 169.0 pg/ml (5-450) 02/10/20 15:46 Total Protein 6.4 g/dl (6.4-8.2) 02/10/20 15:46 Albumin 3.6 g/dl (3.4-5.0) 02/10/20 15:46 02/10/20 22:25 CTA chest shows: There is no evidence of a pulmonary embolus within the main pulmonary artery and its proximal branches, bilaterally. Mild COPD/emphysematous changes and mild bibasal atelectatic changes without evidence of focal infiltrates. Fatty liver. Small hiatus hernia. Small fat-containing right diaphragmatic hernia, posteriorly. Left renal upper pole cyst measuring 4.5 cm. 02/10/20 23:04 D/w [employer] Minnie Duran who accepts the patient for admission. Discharge - Discharge Information Problems reviewed: Yes Clinical Impression/Diagnosis: SOB (shortness of breath), COPD exacerbation Condition: Guarded - Admission Yes - Follow up/Referral - Patient Discharge Instructions - Post Discharge Activity
--- OUTSIDE RECORDS SUMMARY | 2020-02-10 23:17 | XMS ---
:1945 Author Organization [facility] Support Name Relationship Address Phone RE, RETIRED Unavailable Unavailable Unavailable RE Unavailable Unavailable Unavailable JA DUFFY DAUGHTER N/A [facility] [id number] JA DUFFY Child N/A Unavailable [facility], [id number] Re-disclosure Warning The records that you are [...] is protected by Article 27-F of the [facility] Public Health law. If you continue you may haveaccess to information: Regarding HIV / AIDS; Provided by facilities licensed or operated by the [facility] Office of Mental Health; or Provided by the [facility] Office for People With Developmental Disabilities. If such information is present, then the following [facility] mandated warning applies: This information [...] law may result in a fine or fci sentence or both. A general authorization for the release of medical or other information is NOT sufficient authorization for further disclosure. Insurance Providers Payer name Policy type Policy ID Covered Covered republican's Policy P callum / Coverage republican ID relationship to Kim Inf ormation type kim GHI CBP [id number] SP [id number] OUTPT BC PPO [id number] SP [id number] MEDICARE [id number] SP [id number] [facility] [place] CBP [id number] SP [id number] OUTPT BC PPO [id number] SP [id number] [facility] [place] CBP [id number] SP [id number] OUTPT Results ID Date Data Source [id number] 11/06/2019 10:50:00 AM EDT [facility] Name Value Range Interpretation Description Data Sup porting Code Source(s) Document(s ) SARS [facility] CORONAVIRUS 2 RNA This lab was ordered by [facility] and reported by [facility]. ID Date Data Source [id number] 10/31/2019 06:56:00 PM EDT [facility] Name Value Range Interpretation Description Data Sup porting Code Source(s) Document(s ) SARS [facility] CORONAVIRUS 2 RNA This lab was ordered by [facility] and reported by [facility]. Procedure
[2020-02-11] MEDS ORDERED: BACITRACIN 0.9 GM PACKET TP ONE (03:09)
--- NOTE | 2020-02-11 06:21 | HP ---
Admitting History and Physical - Primary Care Physician PCP: Henna Monzon - Admission Chief Complaint: SOB, Wheezing History of Present Illness: This is a 74 y/o female with a PMHx of COPD (on 2L O2, multiple admissions for COPD exacerbations in the past), HTN, Former Smoker, Lumbar Disc Disease. Who presents to the ED with increased SOB x 2 days. Patient reports increased work of breathing at minimal exertion. She reports having a non-productive cough, congestion, sneezing, fatigue and generalized weakness for one week. Patient reports using her MDIs with no relief. Patient denies fever, chills, DUARTE, dizziness, CP, palpitations, N/V/D, constipation. Patient denies sick contacts or recent travel. History Source: Patient Limitations to Obtaining History: No Limitations - Past Medical History Cardiovascular: Yes: HTN Pulmonary: Yes: Bronchitis, COPD, Pneumonia Gastrointestinal: Yes: GERD Musculoskeletal: Yes: Chronic low back pain - Past Surgical History Past Surgical History: Yes: Appendectomy, Joint Replacement (bilateral Knee) - Smoking History Smoking history: Former smoker Have you smoked in the past 12 months: No Aproximately how many cigarettes per day: 10 (reports 10-20) If you are a former smoker, when did you quit?: 05/15 - Alcohol/Substance Use Hx Alcohol Use: Yes (Social) History of Substance Use: reports: None - Social History Usual Living Arrangement: Yes: Other (her brother lives upstairs (2 Family House)) ADL: Independent Occupation: Retired Teacher History of Recent Travel: No Home Medications - Allergies Allergies/Adverse Reactions: Allergies Allergy/AdvReac Type Severity Reaction Status Date / Time No Known Allergies Allergy Verified 02/10/20 15:19 - Home Medications Home Medications: Ambulatory Orders Albuterol Sulfate Hfa 2 inh PRN PRN 10/31/19 Furosemide [Lasix] 40 mg PO DAILY 10/31/19 Lisinopril 20 mg PO DAILY 10/31/19 Pantoprazole Sodium [Protonix] 40 mg PO DAILY 10/31/19 Albuterol Sulfate Inhaler - [Ventolin HFA Inhaler -] 2 puff IH QID inhaler 11/10/19 Amlodipine Besylate [Norvasc -] 10 mg PO DAILY tablet 11/10/19 Budesonide/Formeterol Fumarate [SYMBICORT 160/4.5mcg -] 2 puff IH BID inhaler 11/10/19 Guaifenesin AC [Robitussin AC -] 10 ml PO Q8H PRN ud 11/10/19 Methylprednisolone [Medrol Dose Sarthak] 4 mg PO ASDIR #21 tablet 11/10/19 Tiotropium Alvin [Spiriva Respimat] 2 puff IH DAILY inhaler 11/10/19 Zolpidem Tartrate [Ambien] 5 mg PO HS PRN #10 tablet MDD 1 11/10/19 metFORMIN HCL [Glucophage -] 500 mg PO BID@0700,1630 #60 tablet 11/10/19 Family Medical History Family History: As Documented Family Hx Diabetes: Mother Other Family History: Father- Alcoholism Review of Systems - Review of Systems Constitutional: reports: Weakness Eyes: reports: No Symptoms HENT: reports: Nasal Congestion Neck: reports: No Symptoms Cardiovascular: reports: Shortness of Breath Respiratory: reports: Cough, Exercise Intolerance, SOB, SOB on Exertion, Wheezing Gastrointestinal: reports: No Symptoms Genitourinary: reports: No Symptoms Breasts: reports: No Symptoms Reported Musculoskeletal: reports: No Symptoms Integumentary: reports: No Symptoms Neurological: reports: No Symptoms Endocrine: reports: No Symptoms Hematology/Lymphatic: reports: No Symptoms Psychiatric: reports: No Symptoms Physical Examination Vital Signs: Vital Signs Temperature 98.1 F 02/11/20 06:01 Pulse Rate 80 02/11/20 06:01 Respiratory Rate 22 H 02/11/20 06:01 Blood Pressure 164/90 02/11/20 06:01 O2 Sat by Pulse Oximetry (%) 98 02/11/20 06:01 Constitutional: Yes: Well Nourished, No Distress, Calm, Obese Eyes: Yes: WNL, Conjunctiva Clear, EOM Intact, PERRL HENT: Yes: WNL, Atraumatic, Normocephalic Neck: Yes: WNL, Supple, Trachea Midline Cardiovascular: Yes: Regular Rate and Rhythm, S1, S2 Respiratory: Yes: Diminished, Rhonchi, SOB on Exertion Gastrointestinal: Yes: WNL, Normal Bowel Sounds, Soft, Abdomen, Obese ...Rectal Exam: Yes: Deferred Renal/: Yes: WNL Breast(s): Yes: WNL Musculoskeletal: Yes: WNL Extremities: Yes: WNL Edema: Yes Edema: LLE: 2+, RLE: 2+ Peripheral Pulses WNL: Yes Neurological: Yes: WNL, Alert, Oriented, Cran Nerves II-XII Intact ...Motor Strength: WNL Psychiatric: Yes: WNL, Alert, Oriented Labs: CBC, BMP 02/10/20 15:46 02/10/20 15:46 Laboratory Results - last 24 hr 02/10/20 02/10/20 02/10/20 15:46 15:46 15:46 WBC 6.6 RBC 4.28 Hgb 12.9 Hct 38.8 MCV 90.8 MCH 30.2 MCHC 33.3 RDW 13.9 D Plt Count 192 MPV 9.1 Absolute Neuts (auto) 4.5 Neutrophils % 68.6 D Lymphocytes % 22.5 D Monocytes % 6.7 Eosinophils % 1.5 D Basophils % 0.7 Nucleated RBC % 0 D-Dimer VBG pH 7.342 POC VBG pCO2 48.2 POC VBG pO2 29.8 VBG HCO3 25.5 VBG O2 Sat (Erna) 52.6 L VBG Base Excess -0.7 Sodium 142 Potassium 4.8 Chloride 107 Carbon Dioxide 29 Anion Gap 7 L BUN 17.8 Creatinine 0.7 Est GFR (CKD-EPI)AfAm 97.54 Est GFR (CKD-EPI)NonAf 84.16 Random Glucose 102 Calcium 8.8 Total Bilirubin 0.6 AST 40 H ALT 34 Alkaline Phosphatase 99 Creatine Kinase 124 Troponin I < 0.02 B-Natriuretic Peptide 169.0 Total Protein 6.4 Albumin 3.6 02/10/20 15:46 WBC RBC Hgb Hct MCV MCH MCHC RDW Plt Count MPV Absolute Neuts (auto) Neutrophils % Lymphocytes % Monocytes % Eosinophils % Basophils % Nucleated RBC % D-Dimer 951 H VBG pH POC VBG pCO2 POC VBG pO2 VBG HCO3 VBG O2 Sat (Erna) VBG Base Excess Sodium Potassium Chloride Carbon Dioxide Anion Gap BUN Creatinine Est GFR (CKD-EPI)AfAm Est GFR (CKD-EPI)NonAf Random Glucose Calcium Total Bilirubin AST ALT Alkaline Phosphatase Creatine Kinase Troponin I B-Natriuretic Peptide Total Protein Albumin Intake & Output 02/08/20 02/09/20 02/10/20 02/11/20 23:59 23:59 23:59 23:59 Weight 108.862 kg Current Medications Generic Name Dose Route Start Last Admin Trade Name Freq PRN Reason Stop Dose Admin Albuterol Sulfate 2 puff 02/11/20 08:00 Ventolin Hfa Inhaler - IH RQID SAL Azithromycin 500 mg 02/11/20 10:00 Zithromax PO 02/13/20 10:01 DAILY SAL Heparin Sodium (Porcine) 5,000 unit 02/11/20 10:00 Heparin - SQ BID SAL Methylprednisolone Sodium Succinate 40 mg 02/11/20 03:00 Solu-Medrol - IVPUSH Q6H-IV SAL Tiotropium Alvin 2 puff 02/11/20 10:00 Spiriva Respimat IH DAILY [facility] Imaging - Results Chest X-ray: Report Reviewed, Image Reviewed Cat Scan: Report Reviewed, Image Reviewed Ultrasound: Report Reviewed, Image Reviewed EKG: Image Reviewed Problem List - Problems (1) COPD with acute exacerbation Code(s): J44.1 - CHRONIC OBSTRUCTIVE PULMONARY DISEASE W (ACUTE) EXACERBATION (2) GERD (gastroesophageal reflux disease) Code(s): K21.9 - GASTRO-ESOPHAGEAL REFLUX DISEASE WITHOUT ESOPHAGITIS (3) HTN (hypertension) Code(s): I10 - ESSENTIAL (PRIMARY) HYPERTENSION Qualifiers: Hypertension type: essential hypertension Qualified Code(s): I10 - Essential (primary) hypertension (4) Hypercholesteremia Code(s): E78.00 - PURE HYPERCHOLESTEROLEMIA, UNSPECIFIED (5) Lumbar disc disease Code(s): M51.9 - UNSP THORACIC, THORACOLUM AND LUMBOSACR INTVRT DISC DISORDER (6) Encounter for screening laboratory testing for COVID-19 virus Code(s): Z11.59 - ENCOUNTER FOR SCREENING FOR OTHER VIRAL DISEASES Assessment/Plan This is a 74 y/o female with a PMHx of COPD (on 2L O2, multiple admissions for COPD exacerbations in the past), HTN, Former Smoker, Lumbar Disc Disease. A dmitted for Acute on Chronic COPD Exacerbation for further evaluation of their emergent condition. Plan: Acute on Chronic COPD Exacerbation: Appreciate Pulmonology Consult Chest Xray image and report reviewed- mediastinum widening may be secondary to vascular anatomy or adjacent thyroid tissue, prominent bronchiovascular markings compatible with COPD hx. Hazy obsecuration of the bilateral costeophrenic angles may represent underpenetration artifact or small bilateral pleural effusions and adjacent atelectasis CTA- neg PE or dissection Solumederol given in ED, will continue with taper Azithromycin Continue home meds O2 Peak Flow Hypertension stable Monitor BP Continue home meds Monitor renal function Lumbar Disc Disease stable Continue home med Screen for COVID 19 Infection Low Risk COVID PCR-pending Isolation Precautions Lower Extremity Edema Wells Score 0, low risk Dupelx of LE- neg DVT Hypercholesterolemia stable Continue home med Monitor LFTs GERD stable Continue PPI FEN Fluid Restriction 1L Replete lytes prn Low Na Diet DVT ppx OOB SCDs Heparin SQ Dispo: Requires Inpatient Care Visit type - Medication Review Med list reviewed for High Risk Meds patients 65 and older: Yes - Emergency Visit Emergency Visit: Yes ED Registration Date: 02/10/20 Care time: The patient presented to the Emergency Department on the above date and was hospitalized for further evaluation of their emergent condition. - New Patient This patient is new to me today: Yes Date on this admission: 02/10/20 - Critical Care Critical Care patient: No
[2020-02-11] MEDS ORDERED: methylPREDNISolone NA SUCC 40 MG/1 ML VIAL ONE ×3 (06:36→14:45)
[2020-02-11] MEDS ORDERED: BACITRACIN 0.9 GM PACKET ONE ×2 (06:36→09:25)
[2020-02-11] MEDS: methylPREDNISolone NA SUCC 40 MG/1 ML VIAL IVPUSH SCH ×4 (06:52→20:41)
[2020-02-11 07:32] LABS: BASO % 0.1 % (0-2.0); HEMATOCRIT 40.2 % (32.4-45.2); HEMOGLOBIN 13.1 GM/dL (10.7-15.3); LYMPH % 12.2 % (8-40); MCH 29.4 pg (25.7-33.7); MCHC 32.7 g/dl (32.0-36.0); MEAN CELL VOLUME 89.9 fl (80-96); MEAN PLT VOLUME 9.2 fl (7.5-11.1); MONO % 1.9 % (3.8-10.2); NEUT % 85.8 % (42.8-82.8); PLATELET COUNT 216 K/MM3 (134-434); RBC 4.47 M/mm3 (3.60-5.2); RDW 13.6 % (11.6-15.6); WHITE BLOOD COUNT 5.5 K/mm3 (4.0-10.0)
[2020-02-11 07:59] LABS: ALBUMIN 3.8 g/dl (3.4-5.0); BILIRUBIN,TOTAL 0.3 mg/dL (0.2-1); BLOOD UREA NITROGEN 16.2 mg/dL (7-18); CREATININE 0.8 mg/dL (0.55-1.3); POTASSIUM 4.6 mmol/L (3.5-5.1); TOT PROT 6.9 g/dl (6.4-8.2)
[2020-02-11] MEDS ORDERED: ALBUTEROL SO4 HFA INHALER IH ONE (08:07)
[2020-02-11] MEDS: ALBUTEROL SO4 HFA INHALER IH SCH ×4 (08:10→20:40)
--- NOTE | 2020-02-11 08:14 | PN ---
Progress Note (short form) - Note Progress Note: admitted for acute COPD exacerbation third admission this year for same compliant with her inhalers, has home o2 has never realy gotten well, but last coupe days breathing is really bad, wheezing and dyspnea on minimal exertion in ed bnp normal Echo 3.2019 diastolic dysfunction but good ef d dimer elevated ud bilat lower ext negative for dvt chest cta negative for pe, no infiltrates, does show mild copd ck, trop negative CBC, BMP 02/11/20 06:48 02/11/20 06:48 Vital Signs Period Temp Pulse Resp BP Sys/Hadley Pulse Ox Last 24 Hr 97.6 F-98.2 F 77-94 19-23 163-180/83-98 94-100 tachypneic at rest obese diffuse nilateral expiratory wheezing s1s2 rrr abd soft +pitting bilateral lower ext edema with right ritchie skin tear aaox3 acute copd exacerbation htn obesity niddm since significant weight gain in past year iv steroids nebs o2 dvt/gi prophylaxis cont bp meds monitor sugars
--- NOTE | 2020-02-11 09:06 | EKG ---
Test Reason : Blood Pressure : / mmHG Vent. Rate : 079 BPM Atrial Rate : 079 BPM P-R Int : 170 ms QRS Dur : 078 ms QT Int : 392 ms P-R-T Axes : 050 -11 057 degrees QTc Int : 449 ms SINUS RHYTHM WITH OCCASIONAL PREMATURE VENTRICULAR COMPLEXES POSSIBLE ANTERIOR INFARCT (CITED ON OR BEFORE 31-OCT-2019) ABNORMAL ECG WHEN COMPARED WITH ECG OF 31-OCT-2019 13:56, SINUS RHYTHM HAS REPLACED JUNCTIONAL RHYTHM Confirmed by MD IBIS, CADEN ([id number]) on 02/11/2020 9:05:34 AM Referred By: Confirmed By:CADEN BAUMANN MD
[2020-02-11] MEDS ORDERED: PANTOPRAZOLE 40 MG TABLET ONE (09:24)
[2020-02-11] MEDS ORDERED: FUROSEMIDE 40 MG TABLET (FP) ONE (09:24)
[2020-02-11] MEDS ORDERED: amLODIPine BESYLATE 5 MG TABLET (FP) ONE (09:24)
[2020-02-11] MEDS ORDERED: LISINOPRIL 20 MG TABLET (FP) ONE (09:25)
[2020-02-11] MEDS ORDERED: AZITHROMYCIN 250 MG TABLET ONE (09:25)
[2020-02-11] MEDS ORDERED: HEPARIN NA (PORCINE) 5,000 UNITS/ML 1ML VIAL ONE (09:25)
[2020-02-11] MEDS: PANTOPRAZOLE 40 MG TABLET PO SCH (09:37)
[2020-02-11] MEDS: amLODIPine BESYLATE 10 MG TABLET (FP) PO SCH (09:37)
[2020-02-11] MEDS: AZITHROMYCIN 500 MG TABLET PO SCH (09:37)
[2020-02-11] MEDS: FUROSEMIDE 40 MG TABLET (FP) PO SCH (09:37)
[2020-02-11] MEDS: LISINOPRIL 20 MG TABLET (FP) PO SCH (09:37)
[2020-02-11] MEDS: BACITRACIN 15 GM TUBE TOPICAL OINTMENT TP SCH ×2 (09:37→22:50)
[2020-02-11] MEDS: HEPARIN NA (PORCINE) 5,000 UNITS/ML 1ML VIAL SQ SCH ×2 (09:37→21:47)
[2020-02-11] MEDS: BUDESONIDE/FORMETEROL FUMARATE 160/4.5 mcg INHALER IH SCH ×2 (10:20→21:47)
[2020-02-11] MEDS: TIOTROPIUM BROMIDE 2.5 MCG (SPIRIVA) RESPIMAT INHALER IH SCH (10:20)
[2020-02-11 11:47] LABS: PH,URINE 5.5 (5.0-8.0); URINE APPEARANCE CLEAR; URINE BILIRUBIN NEGATIVE (NEGATIVE); URINE COLOR YELLOW; URINE GLUCOSE (UA) 3+ (NEGATIVE); URINE KETONE NEGATIVE (NEGATIVE); URINE LEUK ESTERASE NEGATIVE (NEGATIVE); URINE NITRITE NEGATIVE (NEGATIVE); URINE PROTEIN NEGATIVE (NEGATIVE); URINE UROBILINOGEN 0.2 mg/dL (0.2-1.0)
--- NOTE | 2020-02-11 12:22 | CON.PULM ---
Consult Consult Specialty:: PULMONARY Referred by:: Dr Monzon Reason for Consultation:: COPD - History of Present Illness Chief Complaint: shortness of breath History of Present Illness: 74yo female with h/o HTN, COPD, chronic hypoxic respiratory failure on home O2, former long time smoker who was admitted with worsening shortness of breath x 2 days. Reports a nonproductive cough and wheezing. Used her home O2 and nebulizer treatments without significant relief. No fevers, chills or sweats. Does have some increased ankle swelling. No chest pain or discomfort. She quit smoking less than 1 year ago. - History Source History Provided By: Patient, Medical Record Limitations to Obtaining History: No Limitations - Past Medical History Cardio/Vascular: Yes: HTN Pulmonary: Yes: Bronchitis, COPD, Pneumonia Gastrointestinal: Yes: GERD Musculoskeletal: Yes: Chronic low back pain - Past Surgical History Past Surgical History: Yes: Appendectomy, Joint Replacement (bilateral Knee) - Alcohol/Substance Use Hx Alcohol Use: Yes (Social) History of Substance Use: reports: None - Smoking History Smoking history: Former smoker Have you smoked in the past 12 months: No Aproximately how many cigarettes per day: 10 (reports 10-20) If you are a former smoker, when did you quit?: 05/15 - Social History ADL: Independent Occupation: Retired Teacher History of Recent Travel: No Home Medications - Allergies Allergies/Adverse Reactions: Allergies Allergy/AdvReac Type Severity Reaction Status Date / Time No Known Allergies Allergy Verified 02/10/20 15:19 - Home Medications Home Medications: Ambulatory Orders Albuterol Sulfate Hfa 2 inh PRN PRN 10/31/19 Furosemide [Lasix] 40 mg PO DAILY 10/31/19 Lisinopril 20 mg PO DAILY 10/31/19 Pantoprazole Sodium [Protonix] 40 mg PO DAILY 10/31/19 Albuterol Sulfate Inhaler - [Ventolin HFA Inhaler -] 2 puff IH QID inhaler 11/10/19 Amlodipine Besylate [Norvasc -] 10 mg PO DAILY tablet 11/10/19 Budesonide/Formeterol Fumarate [SYMBICORT 160/4.5mcg -] 2 puff IH BID inhaler 11/10/19 Guaifenesin AC [Robitussin AC -] 10 ml PO Q8H PRN ud 11/10/19 Methylprednisolone [Medrol Dose Sarthak] 4 mg PO ASDIR #21 tablet 11/10/19 Tiotropium [place] [Spiriva Respimat] 2 puff IH DAILY inhaler 11/10/19 Zolpidem Tartrate [Ambien] 5 mg PO HS PRN #10 tablet MDD 1 11/10/19 metFORMIN HCL [Glucophage -] 500 mg PO BID@0700,1630 #60 tablet 11/10/19 Family Medical History Family Hx Diabetes: Mother Other Family History: Father- Alcoholism Review of Systems - Review of Systems Constitutional: denies: Chills, Fever Eyes: denies: Recent Change in Vision HENT: denies: Nasal Congestion, Throat Pain Neck: denies: Stiffness, Tenderness Cardiovascular: reports: Edema, Shortness of Breath. denies: Chest Pain Respiratory: reports: Cough, SOB on Exertion, Wheezing. denies: Hemoptysis Gastrointestinal: denies: Abdominal Pain, Nausea, Vomiting Genitourinary: denies: Dysuria, Hematuria Neurological: denies: Dizziness, Headache Physical Exam Vital Sings: Vital Signs Temperature 98.2 F 02/11/20 08:10 Pulse Rate 80 02/11/20 08:10 Respiratory Rate 22 H 02/11/20 08:10 Blood Pressure 177/98 H 02/11/20 08:10 O2 Sat by Pulse Oximetry (%) 98 02/11/20 08:10 Constitutional: Yes: Calm Eyes: Yes: Conjunctiva Clear, EOM Intact HENT: Yes: Atraumatic, Normocephalic Neck: Yes: Supple, Trachea Midline Cardiovascular: Yes: Regular Rate and Rhythm Respiratory: Yes: Poor Air Entry ...Clubbing: No Gastrointestinal: Yes: Normal Bowel Sounds, Soft. No: Tenderness Extremities: Yes: Other (skin tear right posterior distal calf) Edema: Yes Labs: CBC, BMP 02/11/20 06:48 02/11/20 06:48 Imaging - Results Chest X-ray: Report Reviewed, Image Reviewed Cat Scan: Report Reviewed, Image Reviewed (no PE, chronic lung disease, emphyematous changes, no infiltrates) Assessment/Plan Acute COPD Exacerbation Chronic Hypoxic Respiratory Failure HTN Former smoker - IV medrol - inhaled bronchodilators standing and PRN - O2 to keep SpO2 >90% - azithromycin - DVT prophylaxis Thank you for this consult Carroll Hernandez MD
[2020-02-11] MEDS: ZOLPIDEM TARTRATE 5 MG TABLET PO PRN (22:50)
[2020-02-12] MEDS: methylPREDNISolone NA SUCC 40 MG/1 ML VIAL IVPUSH SCH ×4 (03:02→21:24)
[2020-02-12 04:38] VITALS: BMI 38.2
[2020-02-12] MEDS: metFORMIN HCL 500 MG TABLET (FP) PO SCH ×2 (06:36→16:21)
[2020-02-12] MEDS: ALBUTEROL SO4 HFA INHALER IH SCH ×3 (06:43→11:58)
--- NOTE | 2020-02-12 08:28 | PN ---
Progress Note (short form) - Note Progress Note: bnp normal Echo .2019 diastolic dysfunction but good ef d dimer elevated ud bilat lower ext negative for dvt chest cta negative for pe, no infiltrates, does show mild copd ck, trop negative covid 19 negative no new events overnight still dyspneic Vital Signs Period Temp Pulse Resp BP Sys/Hadley Pulse Ox Last 24 Hr 97.6 F-98.2 F 82-87 18-22 130-176/70-91 94-98 less tachypneic at rest obese diffuse expiratory wheezing, tight s1s2 rrr abd soft edema much better in legs after elevation aaox3 acute copd exacerbation htn obesity niddm since significant weight gain in past year iv steroids nebs o2 dvt/gi prophylaxis cont bp meds monitor sugars pulm consult appreciated
[2020-02-12] MEDS: BACITRACIN 15 GM TUBE TOPICAL OINTMENT TP SCH (09:03)
[2020-02-12] MEDS: amLODIPine BESYLATE 10 MG TABLET (FP) PO SCH (09:04)
[2020-02-12] MEDS: LISINOPRIL 20 MG TABLET (FP) PO SCH (09:04)
[2020-02-12] MEDS: FUROSEMIDE 40 MG TABLET (FP) PO SCH (09:04)
[2020-02-12] MEDS: HEPARIN NA (PORCINE) 5,000 UNITS/ML 1ML VIAL SQ SCH ×2 (09:04→21:24)
[2020-02-12] MEDS: BUDESONIDE/FORMETEROL FUMARATE 160/4.5 mcg INHALER IH SCH ×2 (09:05→21:25)
[2020-02-12] MEDS: TIOTROPIUM BROMIDE 2.5 MCG (SPIRIVA) RESPIMAT INHALER IH SCH (09:05)
[2020-02-12] MEDS: PANTOPRAZOLE 40 MG TABLET PO SCH (09:05)
--- NOTE | 2020-02-12 13:05 | PN ---
Progress Note (short form) - Note Progress Note: OOB to chair. Still with wheezing and MASON. Seems very forgetful from last admission. No acute events overnight. Intake & Output 02/09/20 02/10/20 02/11/20 02/12/20 23:59 23:59 23:59 23:59 Weight 240 lb 230 lb Last Vital Signs Temp Pulse Resp BP Pulse Ox 97.9 F 99 H 20 183/87 H 96 02/12/20 10:00 02/12/20 10:00 02/12/20 10:00 02/12/20 10:00 02/12/20 10:00 Active Medications Albuterol Sulfate (Ventolin Hfa Inhaler -) 2 puff IH RQID [facility] Last Admin: 02/12/20 11:58 Dose: 2 puff Documented by: Amlodipine Besylate (Norvasc -) 10 mg PO DAILY [facility] Last Admin: 02/12/20 09:04 Dose: 10 mg Documented by: Azithromycin (Zithromax) 500 mg PO DAILY [facility] Stop: 02/13/20 10:01 Last Admin: 02/11/20 09:37 Dose: 500 mg Documented by: Bacitracin (Bacitracin -) 1 applic TP DAILY [facility] Last Admin: 02/12/20 09:03 Dose: 1 applic Documented by: Budesonide/Formoterol Fumarate (Symbicort 160/4.5mcg -) 2 puff IH BID [facility] Last Admin: 02/12/20 09:05 Dose: 2 puff Documented by: Furosemide (Lasix -) 40 mg PO DAILY [facility] Last Admin: 02/12/20 09:04 Dose: 40 mg Documented by: Heparin Sodium (Porcine) (Heparin -) 5,000 unit SQ BID [facility] Last Admin: 02/12/20 09:04 Dose: 5,000 unit Documented by: [facility] Protocol Lisinopril (Prinivil) 20 mg PO DAILY [facility] Last Admin: 02/12/20 09:04 Dose: 20 mg Documented by: Metformin HCl (Glucophage -) 1,000 mg PO BID@0700,1630 [facility] Last Admin: 02/12/20 06:36 Dose: 1,000 mg Documented by: Methylprednisolone Sodium Succinate (Solu-Medrol -) 40 mg IVPUSH Q6H-IV [facility] Last Admin: 02/12/20 09:03 Dose: 40 mg Documented by: Pantoprazole Sodium (Protonix -) 40 mg PO DAILY [facility] Last Admin: 02/12/20 09:05 Dose: 40 mg Documented by: Tiotropium [place] (Spiriva Respimat) 2 puff IH DAILY [facility] Last Admin: 02/12/20 09:05 Dose: 2 puff Documented by: Zolpidem Tartrate (Ambien -) 5 mg PO HS PRN PRN Reason: INSOMNIA Last Admin: 02/11/20 22:50 Dose: 5 mg Documented by: Constitutional: Yes: Mildly tachypneic at rest Eyes: Yes: Conjunctiva Clear, EOM Intact HENT: Yes: Atraumatic, Normocephalic Neck: Yes: Supple, Trachea Midline Cardiovascular: Yes: Regular Rate and Rhythm Respiratory: Yes: Poor Air Entry, Bilateral Expiratory wheeze and rhonchi ...Clubbing: No Gastrointestinal: Yes: Normal Bowel Sounds, Soft. No: Tenderness Extremities: Yes: Other (skin tear right posterior distal calf) Edema: Yes Labs: Laboratory Results - last 24 hr 02/11/20 02/12/20 07:45 06:35 POC Glucometer 217 COVID-19 (JULIETH) Not detected Imaging - Results Chest X-ray: Report Reviewed, Image Reviewed Cat Scan: Report Reviewed, Image Reviewed (no PE, chronic lung disease, emphyematous changes, no infiltrates) Assessment/Plan Acute COPD Exacerbation Chronic Hypoxic Respiratory Failure HTN Former smoker Previous COVID19 infection (?) COVID19 related memory loss - IV medrol - inhaled bronchodilators standing and PRN - O2 to keep SpO2 >90% - azithromycin - DVT prophylaxis Dr Womack
[2020-02-12] MEDS ORDERED: ALBUTEROL SO4 0.083% IH SOL 2.5 MG/3 ML VIAL.NEB. NEB SCH (14:00)
[2020-02-12] MEDS ORDERED: PT OWN MED DRAWER 7, Y5N ONE (15:07)
[2020-02-12] MEDS: AZITHROMYCIN 500 MG TABLET PO SCH (15:12)
[2020-02-12] MEDS: INSULIN (NOVOLOG) ASPART 100 UNITS/ML 10ML VIAL SQ SCH (16:28)
[2020-02-12] MEDS: guaiFENesin/D-M SUGAR-FREE/ACLHOL-FREE 118 ML BOTTLE PO PRN (18:49)
[2020-02-12] MEDS: ALBUTEROL SO4 0.083% IH SOL 2.5 MG/3 ML VIAL.NEB. NEB SCH (20:12)
[2020-02-12] MEDS: ACETAMINOPHEN 325 MG TABLET (FP) PO PRN (21:24)
[2020-02-12] MEDS: ZOLPIDEM TARTRATE 5 MG TABLET PO PRN (21:24)
[2020-02-12] MEDS ORDERED: ALBUTEROL SO4 0.083% IH SOL 2.5 MG/3 ML VIAL.NEB. NEB ONE (23:05)
[2020-02-13] MEDS: methylPREDNISolone NA SUCC 40 MG/1 ML VIAL IVPUSH SCH ×4 (02:08→21:21)
[2020-02-13] MEDS: metFORMIN HCL 500 MG TABLET (FP) PO SCH ×2 (06:24→16:53)
[2020-02-13] MEDS: INSULIN (NOVOLOG) ASPART 100 UNITS/ML 10ML VIAL SQ SCH (06:24)
[2020-02-13] MEDS: guaiFENesin/D-M SUGAR-FREE/ACLHOL-FREE 118 ML BOTTLE PO PRN (07:10)
[2020-02-13] MEDS: ALBUTEROL SO4 0.083% IH SOL 2.5 MG/3 ML VIAL.NEB. NEB SCH (07:25)
[2020-02-13] MEDS ORDERED: ALPRAZolam 1 MG TABLET PO PRN (08:24)
--- NOTE | 2020-02-13 08:28 | PN ---
Progress Note (short form) - Note Progress Note: bnp normal Echo .2019 diastolic dysfunction but good ef d dimer elevated ud bilat lower ext negative for dvt chest cta negative for pe, no infiltrates, does show mild copd ck, trop negative covid 19 negative no new events overnight still dyspneic/anxious Vital Signs Period Temp Pulse Resp BP Sys/Hadley Pulse Ox Last 24 Hr 97.6 F-98.1 F 81-99 18-20 127-183/62-95 94-99 tachypneic at rest obese diffuse expiratory wheezing, tight s1s2 rrr abd soft edema much better aaox3 acute copd exacerbation htn obesity niddm since significant weight gain in past year iv steroids nebs o2 dvt/gi prophylaxis cont bp meds monitor sugars add bendaryl for nasal congestion prn xanax for anxiety pulm consult appreciated
[2020-02-13] MEDS ORDERED: PT OWN MED DRAWER 7, Y5N ONE (09:17)
[2020-02-13] MEDS: BACITRACIN 15 GM TUBE TOPICAL OINTMENT TP SCH (09:58)
[2020-02-13] MEDS: AZITHROMYCIN 500 MG TABLET PO SCH (09:59)
[2020-02-13] MEDS: amLODIPine BESYLATE 10 MG TABLET (FP) PO SCH (09:59)
[2020-02-13] MEDS: HEPARIN NA (PORCINE) 5,000 UNITS/ML 1ML VIAL SQ SCH ×2 (09:59→21:21)
[2020-02-13] MEDS: LISINOPRIL 20 MG TABLET (FP) PO SCH (09:59)
[2020-02-13] MEDS: FUROSEMIDE 40 MG TABLET (FP) PO SCH (09:59)
[2020-02-13] MEDS: PANTOPRAZOLE 40 MG TABLET PO SCH (09:59)
[2020-02-13] MEDS: TIOTROPIUM BROMIDE 2.5 MCG (SPIRIVA) RESPIMAT INHALER IH SCH (10:00)
[2020-02-13] MEDS: BUDESONIDE/FORMETEROL FUMARATE 160/4.5 mcg INHALER IH SCH ×2 (10:00→21:22)
[2020-02-13] MEDS ORDERED: INSULIN (NOVOLOG) ASPART 100 UNITS/ML 10ML VIAL ONE (10:14)
[2020-02-13] MEDS: INSULIN SLIDING SCALE (NOVOLOG) 1 VIAL SQ SCH ×2 (10:15→16:47)
[2020-02-13] MEDS: ALBUTEROL SO4 0.083% IH SOL 2.5 MG/3 ML VIAL.NEB. NEB PRN ×3 (11:23→20:15)
--- NOTE | 2020-02-13 14:25 | PN ---
Progress Note (short form) - Note Progress Note: PULMONARY OOB TO CHAIR CONGESTED COUGH CONTINUES VSS/AFEBRILE Constitutional: Yes: Mildly tachypneic at rest Eyes: Yes: Conjunctiva Clear, EOM Intact HENT: Yes: Atraumatic, Normocephalic Neck: Yes: Supple, Trachea Midline Cardiovascular: Yes: Regular Rate and Rhythm Respiratory: Yes: Poor Air Entry, Bilateral Expiratory wheeze and rhonchi ...Clubbing: No Gastrointestinal: Yes: Normal Bowel Sounds, Soft. No: Tenderness Extremities: Yes: Other (skin tear right posterior distal calf) Edema: Yes Labs: NOTED Chest X-ray: Report Reviewed, Image Reviewed Cat Scan: Report Reviewed, Image Reviewed (no PE, chronic lung disease, emphyematous changes, no infiltrates) Acute COPD Exacerbation Chronic Hypoxic Respiratory Failure HTN Former smoker Previous COVID19 infection (?) COVID19 related memory loss - IV medrol to continue - inhaled bronchodilators standing and PRN - O2 to keep SpO2 >90% - azithromycin - DVT prophylaxis Adair CANNON MD
[2020-02-13] MEDS: ACETAMINOPHEN 325 MG TABLET (FP) PO PRN (14:37)
[2020-02-13] MEDS ORDERED: LIDOCAINE 5% TOPICAL PATCH TP ONE (19:03)
[2020-02-13] MEDS: diphenhydrAMINE HCL 25 MG CAPSULE (FP) PO PRN (21:21)
[2020-02-13] MEDS ORDERED: ZOLPIDEM TARTRATE 5 MG TABLET PO PRN (22:00)
[2020-02-13] MEDS ORDERED: diphenhydrAMINE HCL 25 MG CAPSULE (FP) PO PRN (22:00)
[2020-02-14] MEDS: methylPREDNISolone NA SUCC 40 MG/1 ML VIAL IVPUSH SCH ×3 (02:27→17:12)
[2020-02-14] MEDS: ALBUTEROL SO4 0.083% IH SOL 2.5 MG/3 ML VIAL.NEB. NEB PRN ×5 (02:58→22:48)
[2020-02-14] MEDS: INSULIN SLIDING SCALE (NOVOLOG) 1 VIAL SQ SCH ×2 (07:01→17:13)
[2020-02-14] MEDS: metFORMIN HCL 500 MG TABLET (FP) PO SCH ×2 (07:02→17:13)
[2020-02-14] MEDS ORDERED: LIDOCAINE PATCH REMOVAL MC ONE (07:30)
[2020-02-14] MEDS: FUROSEMIDE 40 MG TABLET (FP) PO SCH (10:14)
[2020-02-14] MEDS: amLODIPine BESYLATE 10 MG TABLET (FP) PO SCH (10:15)
[2020-02-14] MEDS: HEPARIN NA (PORCINE) 5,000 UNITS/ML 1ML VIAL SQ SCH ×2 (10:15→21:14)
[2020-02-14] MEDS: LISINOPRIL 20 MG TABLET (FP) PO SCH (10:15)
[2020-02-14] MEDS: PANTOPRAZOLE 40 MG TABLET PO SCH (10:15)
[2020-02-14] MEDS: BUDESONIDE/FORMETEROL FUMARATE 160/4.5 mcg INHALER IH SCH ×2 (10:28→21:14)
[2020-02-14] MEDS: TIOTROPIUM BROMIDE 2.5 MCG (SPIRIVA) RESPIMAT INHALER IH SCH (10:28)
[2020-02-14] MEDS: BACITRACIN 15 GM TUBE TOPICAL OINTMENT TP SCH (10:29)
[2020-02-14] MEDS: guaiFENesin/D-M SUGAR-FREE/ACLHOL-FREE 118 ML BOTTLE PO PRN ×2 (10:40→18:15)
--- NOTE | 2020-02-14 11:50 | PN ---
Progress Note (short form) - Note Progress Note: PULMONARY LYING IN BED APPEARS STABLE VSS/AFEBRILE/SPO2 98% 4L/M NASAL O2 Constitutional: Yes: Mildly tachypneic at rest Eyes: Yes: Conjunctiva Clear, EOM Intact HENT: Yes: Atraumatic, Normocephalic Neck: Yes: Supple, Trachea Midline Cardiovascular: Yes: Regular Rate and Rhythm Respiratory: Yes: Poor Air Entry, Bilateral Expiratory wheeze and rhonchi ...Clubbing: No Gastrointestinal: Yes: Normal Bowel Sounds, Soft. No: Tenderness Extremities: Yes: Other (skin tear right posterior distal calf) Edema: Yes Labs: NOTED Chest X-ray: Report Reviewed, Image Reviewed Cat Scan: Report Reviewed, Image Reviewed (no PE, chronic lung disease, emphyematous changes, no infiltrates) Acute COPD Exacerbation Chronic Hypoxic Respiratory Failure HTN Former smoker Previous COVID19 infection (?) COVID19 related memory loss - IV medrol to be tapered - inhaled bronchodilators standing and PRN - O2 to keep SpO2 >90% - azithromycin - DVT prophylaxis Adair CANNON MD
[2020-02-14] MEDS ORDERED: INSULIN (NOVOLOG) ASPART 100 UNITS/ML 10ML VIAL ONE (16:55)
--- NOTE | 2020-02-14 19:28 | PN ---
Progress Note (short form) - Note Progress Note: still wheezing no fever or chills sVital Signs Period Temp Pulse Resp BP Sys/Hadley Pulse Ox Last 24 Hr 98.0 F-98.4 F 75-89 22-24 126-168/61-90 98-98 heent nad Neck supple Lungs raymond wheezing but good a/e raymond Heart normal heart sounds abd soft and non tender ext no edema CBC, BMP 02/11/20 06:48 02/11/20 06:48 A/p acute copd hypoxemia htn obesity she is still wheezing will continue the abx, iv stroids and and nebulizers
[2020-02-14] MEDS: diphenhydrAMINE HCL 25 MG CAPSULE (FP) PO PRN (21:40)
[2020-02-15] MEDS: methylPREDNISolone NA SUCC 40 MG/1 ML VIAL IVPUSH SCH ×5 (01:31→20:04)
[2020-02-15] MEDS ORDERED: INSULIN (NOVOLOG) ASPART 100 UNITS/ML 10ML VIAL ONE (06:25)
[2020-02-15] MEDS: INSULIN SLIDING SCALE (NOVOLOG) 1 VIAL SQ SCH ×2 (06:48→17:29)
[2020-02-15] MEDS: amLODIPine BESYLATE 10 MG TABLET (FP) PO SCH ×2 (06:49→09:16)
[2020-02-15] MEDS: metFORMIN HCL 500 MG TABLET (FP) PO SCH ×2 (06:49→17:29)
[2020-02-15] MEDS: ALBUTEROL SO4 0.083% IH SOL 2.5 MG/3 ML VIAL.NEB. NEB PRN ×2 (07:40→11:30)
[2020-02-15] MEDS: guaiFENesin/D-M SUGAR-FREE/ACLHOL-FREE 118 ML BOTTLE PO PRN (08:14)
[2020-02-15] MEDS ORDERED: ALPRAZolam 0.25 MG TABLET PO PRN (08:18)
[2020-02-15] MEDS: FUROSEMIDE 40 MG TABLET (FP) PO SCH (09:15)
[2020-02-15] MEDS: PANTOPRAZOLE 40 MG TABLET PO SCH (09:15)
[2020-02-15] MEDS: LISINOPRIL 20 MG TABLET (FP) PO SCH (09:15)
[2020-02-15] MEDS: BUDESONIDE/FORMETEROL FUMARATE 160/4.5 mcg INHALER IH SCH ×2 (09:17→21:09)
[2020-02-15] MEDS: TIOTROPIUM BROMIDE 2.5 MCG (SPIRIVA) RESPIMAT INHALER IH SCH (09:18)
[2020-02-15] MEDS: HEPARIN NA (PORCINE) 5,000 UNITS/ML 1ML VIAL SQ SCH ×2 (09:29→21:08)
--- NOTE | 2020-02-15 10:41 | PN ---
Progress Note (short form) - Note Progress Note: still wheezing no fever or chills Vital Signs Period Temp Pulse Resp BP Sys/Hadley Pulse Ox Last 24 Hr 97.5 F-98.4 F 68-89 20-24 150-173/61-80 97-100 heent nad Neck supple Lungs raymond wheezing but good a/e raymond Heart normal heart sounds abd soft and non tender ext no edema CBC, BMP 02/11/20 06:48 02/11/20 06:48 A/p acute copd hypoxemia htn obesity she is still wheezing will continue the abx, iv stroids and and nebulizers add claritin 10 daily Current Medications Generic Name Dose Route Start Last Admin Trade Name Freq PRN Reason Stop Dose Admin Acetaminophen 650 mg 02/12/20 19:59 02/13/20 14:37 Tylenol - PO 650 mg Q6H PRN Administration PAIN LEVEL 4 - 6 Albuterol Sulfate 1 amp 02/13/20 08:24 02/15/20 07:40 Ventolin 0.083% Nebulizer Soln - NEB 1 amp Q4H PRN Administration ASTHMA Alprazolam 0.25 mg 02/15/20 08:18 02/15/20 08:24 Xanax - PO 0.25 mg Q12H PRN Administration ANXIETY Amlodipine Besylate 10 mg 02/11/20 10:00 02/15/20 09:16 Norvasc - PO Not Given DAILY [facility] Bacitracin 1 applic 02/11/20 10:00 02/14/20 10:29 Bacitracin - TP 1 applic DAILY [facility] Administration Budesonide/Formoterol Fumarate 2 puff 02/11/20 10:00 02/15/20 09:17 Symbicort 160/4.5mcg - IH 2 puff BID [facility] Administration Diphenhydramine HCl 25 mg 02/13/20 14:27 02/14/20 21:40 Benadryl - PO 25 mg BID PRN Administration FOR ITCHING Furosemide 40 mg 02/11/20 10:00 02/15/20 09:15 Lasix - PO 40 mg DAILY [facility] Administration Guaifenesin 10 ml 02/12/20 13:48 02/15/20 08:14 Diabetic Tussin Dm - PO 10 ml Q6H PRN Administration COUGH Heparin Sodium (Porcine) 5,000 unit 02/11/20 10:00 02/15/20 09:29 Heparin - SQ Not Given BID [facility] Insulin Aspart 1 vial 02/13/20 08:45 02/15/20 06:48 Novolog Vial Sliding Scale - SQ 6 units BIDAC [facility] Administration Protocol Lisinopril 20 mg 02/11/20 10:00 02/15/20 09:15 Prinivil PO 20 mg DAILY [facility] Administration Loratadine 10 mg 02/16/20 10:00 Claritin - PO DAILY [facility] Metformin HCl 1,000 mg 02/12/20 07:00 02/15/20 06:49 Glucophage - PO 1,000 mg BID@0700,1630 [facility] Administration Methylprednisolone Sodium Succinate 20 mg 02/14/20 18:00 02/15/20 09:16 Solu-Medrol - IVPUSH 20 mg Q8H-IV [facility] Administration Pantoprazole Sodium 40 mg 02/11/20 10:00 02/15/20 09:15 Protonix - PO 40 mg DAILY [facility] Administration Tiotropium [place] 2 puff 02/11/20 10:00 02/15/20 09:18 Spiriva Respimat IH 2 puff DAILY [facility] Administration Zolpidem Tartrate 5 mg 02/13/20 22:00 Ambien - PO HS PRN INSOMNIA
[2020-02-15] MEDS ORDERED: methylPREDNISolone NA SUCC 40 MG/1 ML VIAL IVPUSH SCH (12:15)
--- NOTE | 2020-02-15 12:15 | PN ---
Progress Note (short form) - Note Progress Note: PULMONARY OOB TO CHAIR USING NEB NURSE REPORTS EPISODE OF WHEEZING WHEN RETURNING FROM TOILET VSS/AFEBRILE/SPO2 99% 4L/M NASAL O2 Constitutional: Yes: Mildly tachypneic at rest Eyes: Yes: Conjunctiva Clear, EOM Intact HENT: Yes: Atraumatic, Normocephalic Neck: Yes: Supple, Trachea Midline Cardiovascular: Yes: Regular Rate and Rhythm Respiratory: Yes: Poor Air Entry, Bilateral Expiratory wheeze and rhonchi ...Clubbing: No Gastrointestinal: Yes: Normal Bowel Sounds, Soft. No: Tenderness Extremities: Yes: Other (skin tear right posterior distal calf) Edema: Yes Labs: NOTED Chest X-ray: Report Reviewed, Image Reviewed Cat Scan: Report Reviewed, Image Reviewed (no PE, chronic lung disease, emphyematous changes, no infiltrates) Acute COPD Exacerbation Chronic Hypoxic Respiratory Failure HTN Former smoker Previous COVID19 infection (?) COVID19 related memory loss - IV medrol re-adjusted - inhaled bronchodilators standing and PRN - O2 to keep SpO2 >90% - DVT prophylaxis Adair CANNON MD
[2020-02-15] MEDS: BACITRACIN 15 GM TUBE TOPICAL OINTMENT TP SCH (17:29)
[2020-02-16] MEDS: methylPREDNISolone NA SUCC 40 MG/1 ML VIAL IVPUSH SCH ×3 (02:48→17:10)
[2020-02-16] MEDS ORDERED: INSULIN (NOVOLOG) ASPART 100 UNITS/ML 10ML VIAL ONE (06:03)
[2020-02-16] MEDS: INSULIN SLIDING SCALE (NOVOLOG) 1 VIAL SQ SCH ×2 (06:05→16:28)
[2020-02-16] MEDS: metFORMIN HCL 500 MG TABLET (FP) PO SCH ×2 (06:05→16:23)
[2020-02-16] MEDS: ALBUTEROL SO4 0.083% IH SOL 2.5 MG/3 ML VIAL.NEB. NEB PRN ×3 (06:52→20:17)
--- NOTE | 2020-02-16 08:14 | DS ---
Physical Examination Vital Signs: Vital Signs Temperature 97.8 F 02/16/20 06:00 Pulse Rate 71 02/16/20 06:00 Respiratory Rate 22 H 02/16/20 06:00 Blood Pressure 156/84 02/16/20 06:00 O2 Sat by Pulse Oximetry (%) 97 02/16/20 06:00 Constitutional: Yes: Well Nourished, Obese HENT: Yes: Normocephalic Neck: Yes: Trachea Midline Cardiovascular: Yes: Regular Rate and Rhythm Respiratory: Yes: Wheezes (scattered bilateral) Gastrointestinal: Yes: Normal Bowel Sounds, Soft, Abdomen, Obese Extremities: Yes: WNL Edema: LLE: Trace, RLE: Trace Integumentary: Yes: Other (right ritchie skin wound clean, healing well) Neurological: Yes: WNL Psychiatric: Yes: WNL Labs: CBC, BMP 02/11/20 06:48 02/11/20 06:48 Discharge Summary Problems reviewed: Yes Reason For Visit: SHORTNESS OF BREATH,ACUTE EXCERBATION OF CHRONIC Current Active Problems COPD exacerbation (Acute) Encounter for screening laboratory testing for COVID-19 virus (Acute) Shortness of breath (Acute) Hospital Course: admitted for acute copd exacerbation chronic wheezing present , poor exercise tolerance would greatly benefit from pulmonary rehab has home o2 set up already iv steroid taper to po prednsione and taper to dc over the next 7-10 days cta was negative for pulmonary embolism, showed mild copd covid 19 negative on admission blood cultures are also negative Condition: Guarded - Instructions Diet, Activity, Other Instructions: taper prednisone over the next 7-10 days to discontinue Referrals: Henna Monzon MD [Primary Care Provider] - Disposition: PRISON FACILITY
[2020-02-16] MEDS: LORATADINE 10 MG TABLET PO SCH (08:59)
[2020-02-16] MEDS: HEPARIN NA (PORCINE) 5,000 UNITS/ML 1ML VIAL SQ SCH ×2 (08:59→21:53)
[2020-02-16] MEDS: BACITRACIN 15 GM TUBE TOPICAL OINTMENT TP SCH (08:59)
[2020-02-16] MEDS: amLODIPine BESYLATE 10 MG TABLET (FP) PO SCH (09:00)
[2020-02-16] MEDS: TIOTROPIUM BROMIDE 2.5 MCG (SPIRIVA) RESPIMAT INHALER IH SCH (09:00)
[2020-02-16] MEDS: PANTOPRAZOLE 40 MG TABLET PO SCH (09:00)
[2020-02-16] MEDS: BUDESONIDE/FORMETEROL FUMARATE 160/4.5 mcg INHALER IH SCH ×2 (09:00→21:53)
[2020-02-16] MEDS: FUROSEMIDE 40 MG TABLET (FP) PO SCH (09:00)
[2020-02-16] MEDS: LISINOPRIL 20 MG TABLET (FP) PO SCH (09:00)
--- NOTE | 2020-02-16 11:43 | PN ---
Progress Note (short form) - Note Progress Note: PULMONARY Breathing better. Still some cough and chest tightness. Vital Signs Period Temp Pulse Resp BP Sys/Hadley Pulse Ox Last 24 Hr 97.4 F-97.9 F 71-79 22-26 124-179/58-84 97-98 Gen: mildly tachypneic with speaking Heart: RRR Lung: distant breath sounds Abd: soft, nontender Ext: no edema CBC, BMP 02/11/20 06:48 02/11/20 06:48 Active Medications Acetaminophen (Tylenol -) 650 mg PO Q6H PRN PRN Reason: PAIN LEVEL 4 - 6 Last Admin: 02/13/20 14:37 Dose: 650 mg Documented by: Albuterol Sulfate (Ventolin 0.083% Nebulizer Soln -) 1 amp NEB Q4H PRN PRN Reason: ASTHMA Last Admin: 02/16/20 11:27 Dose: 1 amp Documented by: Alprazolam (Xanax -) 0.25 mg PO Q12H PRN PRN Reason: ANXIETY Last Admin: 02/15/20 08:24 Dose: 0.25 mg Documented by: Amlodipine Besylate (Norvasc -) 10 mg PO DAILY [facility] Last Admin: 02/16/20 09:00 Dose: 10 mg Documented by: Bacitracin (Bacitracin -) 1 applic TP DAILY [facility] Last Admin: 02/16/20 08:59 Dose: 1 applic Documented by: Budesonide/Formoterol Fumarate (Symbicort 160/4.5mcg -) 2 puff IH BID [facility] Last Admin: 02/16/20 09:00 Dose: 2 puff Documented by: Diphenhydramine HCl (Benadryl -) 25 mg PO BID PRN PRN Reason: FOR ITCHING Last Admin: 02/14/20 21:40 Dose: 25 mg Documented by: Furosemide (Lasix -) 40 mg PO DAILY [facility] Last Admin: 02/16/20 09:00 Dose: 40 mg Documented by: Guaifenesin (Diabetic Tussin Dm -) 10 ml PO Q6H PRN PRN Reason: COUGH Last Admin: 02/15/20 08:14 Dose: 10 ml Documented by: Heparin Sodium (Porcine) (Heparin -) 5,000 unit SQ BID [facility] Last Admin: 09/21/20 08:59 Dose: 5,000 unit Documented by: Insulin Aspart (Novolog Vial Sliding Scale -) 1 vial SQ BIDAC [facility]; Protocol Last Admin: 02/16/20 06:05 Dose: 2 units Documented by: Lisinopril (Prinivil) 20 mg PO DAILY [facility] Last Admin: 02/16/20 09:00 Dose: 20 mg Documented by: Loratadine (Claritin -) 10 mg PO DAILY [facility] Last Admin: 02/16/20 08:59 Dose: 10 mg Documented by: Metformin HCl (Glucophage -) 1,000 mg PO BID@0700,1630 [facility] Last Admin: 02/16/20 06:05 Dose: 1,000 mg Documented by: Methylprednisolone Sodium Succinate (Solu-Medrol -) 40 mg IVPUSH Q8H-IV [facility] Last Admin: 02/16/20 08:58 Dose: 40 mg Documented by: Pantoprazole Sodium (Protonix -) 40 mg PO DAILY [facility] Last Admin: 02/16/20 09:00 Dose: 40 mg Documented by: Tiotropium [place] (Spiriva Respimat) 2 puff IH DAILY [facility] Last Admin: 02/16/20 09:00 Dose: 2 puff Documented by: Zolpidem Tartrate (Ambien -) 5 mg PO HS PRN PRN Reason: INSOMNIA Last Admin: 02/15/20 21:08 Dose: 5 mg Documented by: A/P Acute COPD Exacerbation Chronic Hypoxic Respiratory Failure HTN Former smoker - medrol taper - inhaled bronchodilators standing and PRN - O2 to keep SpO2 >90% - DVT prophylaxis - d/c planning to [facility]
[2020-02-16] MEDS: ACETAMINOPHEN 325 MG TABLET (FP) PO PRN ×2 (11:59→21:52)
[2020-02-16 14:05] LABS: HEMATOCRIT 38.7 % (32.4-45.2); HEMOGLOBIN 12.6 GM/dL (10.7-15.3); MCH 29.4 pg (25.7-33.7); MCHC 32.5 g/dl (32.0-36.0); MEAN CELL VOLUME 90.4 fl (80-96); MEAN PLT VOLUME 9.4 fl (7.5-11.1); PLATELET COUNT 233 K/MM3 (134-434); RBC 4.29 M/mm3 (3.60-5.2); RDW 13.7 % (11.6-15.6)
[2020-02-16 14:25] LABS: ALBUMIN 3.4 g/dl (3.4-5.0); BILIRUBIN,TOTAL 0.3 mg/dL (0.2-1); BLOOD UREA NITROGEN 38.7 mg/dL (7-18); CALCIUM 8.5 mg/dL (8.5-10.1); CREATININE 1.1 mg/dL (0.55-1.3); POTASSIUM 4.2 mmol/L (3.5-5.1)
[2020-02-16] MEDS ORDERED: PT OWN MED DRAWER 7, Y5N ONE ×2 (16:21→22:34)
[2020-02-16] MEDS: guaiFENesin/D-M SUGAR-FREE/ACLHOL-FREE 118 ML BOTTLE PO PRN (16:22)
[2020-02-17] MEDS: methylPREDNISolone NA SUCC 40 MG/1 ML VIAL IVPUSH SCH (01:19)
[2020-02-17] MEDS: INSULIN SLIDING SCALE (NOVOLOG) 1 VIAL SQ SCH (06:00)
[2020-02-17] MEDS: metFORMIN HCL 500 MG TABLET (FP) PO SCH (06:00)
[2020-02-17] MEDS: guaiFENesin/D-M SUGAR-FREE/ACLHOL-FREE 118 ML BOTTLE PO PRN (06:04)
[2020-02-17 07:19] VITALS: TEMP 98.4
--- NOTE | 2020-02-17 07:42 | PN ---
Progress Note, Physician History of Present Illness: PULMONARY ALERT,LESS DYSPNEIC,ON NASAL 02 - Current Medication List Current Medications: Active Medications Acetaminophen (Tylenol -) 650 mg PO Q6H PRN PRN Reason: PAIN LEVEL 4 - 6 Last Admin: 02/16/20 21:52 Dose: 650 mg Documented by: Albuterol Sulfate (Ventolin 0.083% Nebulizer Soln -) 1 amp NEB Q4H PRN PRN Reason: ASTHMA Last Admin: 02/16/20 20:17 Dose: 1 amp Documented by: Alprazolam (Xanax -) 0.25 mg PO Q12H PRN PRN Reason: ANXIETY Last Admin: 02/15/20 08:24 Dose: 0.25 mg Documented by: Amlodipine Besylate (Norvasc -) 10 mg PO DAILY [facility] Last Admin: 02/16/20 09:00 Dose: 10 mg Documented by: Bacitracin (Bacitracin -) 1 applic TP DAILY [facility] Last Admin: 02/16/20 08:59 Dose: 1 applic Documented by: Budesonide/Formoterol Fumarate (Symbicort 160/4.5mcg -) 2 puff IH BID [facility] Last Admin: 02/16/20 21:53 Dose: 2 puff Documented by: Diphenhydramine HCl (Benadryl -) 25 mg PO BID PRN PRN Reason: FOR ITCHING Last Admin: 02/14/20 21:40 Dose: 25 mg Documented by: Furosemide (Lasix -) 40 mg PO DAILY [facility] Last Admin: 02/16/20 09:00 Dose: 40 mg Documented by: Guaifenesin (Diabetic Tussin Dm -) 10 ml PO Q6H PRN PRN Reason: COUGH Last Admin: 02/17/20 06:04 Dose: 10 ml Documented by: Heparin Sodium (Porcine) (Heparin -) 5,000 unit SQ BID [facility] Last Admin: 02/16/20 21:53 Dose: Not Given Documented by: Insulin Aspart (Novolog Vial Sliding Scale -) [facility] Protocol Last Admin: 02/17/20 06:00 Dose: 4 units Documented by: Lisinopril (Prinivil) 20 mg PO DAILY [facility] Last Admin: 02/16/20 09:00 Dose: 20 mg Documented by: Loratadine (Claritin -) 10 mg PO DAILY [facility] Last Admin: 02/16/20 08:59 Dose: 10 mg Documented by: Metformin HCl (Glucophage -) 1,000 mg PO BID@0700,1630 [facility] Last Admin: 02/17/20 06:00 Dose: 1,000 mg Documented by: Methylprednisolone Sodium Succinate (Solu-Medrol -) 40 mg IVPUSH Q8H-IV [facility] Last Admin: 02/17/20 01:19 Dose: 40 mg Documented by: Pantoprazole Sodium (Protonix -) 40 mg PO DAILY [facility] Last Admin: 02/16/20 09:00 Dose: 40 mg Documented by: Tiotropium [place] (Spiriva Respimat) 2 puff IH DAILY [facility] Last Admin: 02/16/20 09:00 Dose: 2 puff Documented by: Zolpidem Tartrate (Ambien -) 5 mg PO HS PRN PRN Reason: INSOMNIA Last Admin: 02/15/20 21:08 Dose: 5 mg Documented by: - Objective Vital Signs: Vital Signs Temperature 98.4 F 02/17/20 06:00 Pulse Rate 69 02/17/20 06:00 Respiratory Rate 02/17/20 06:00 Blood Pressure 165/88 02/17/20 06:00 O2 Sat by Pulse Oximetry (%) 99 02/17/20 06:00 Constitutional: Yes: Calm, Obese, Other (MILDLY DYSPNEIC) Eyes: Yes: WNL HENT: Yes: WNL Neck: Yes: WNL Cardiovascular: Yes: Regular Rate and Rhythm, S1, S2 Respiratory: Yes: Wheezes (SCATTERED RAYSA WHEEZES) Gastrointestinal: Yes: Normal Bowel Sounds, Soft Extremities: Yes: WNL Edema: No Labs: CBC, BMP Assessment/Plan A/P Acute COPD Exacerbation Chronic Hypoxic Respiratory Failure HTN Former smoker - medrol taper - inhaled bronchodilators standing and PRN - O2 to keep SpO2 >90% - DVT prophylaxis - d/c planning to [facility] DR HERNANDEZ
--- NOTE | 2020-02-17 08:22 | PN ---
Progress Note (short form) - Note Progress Note: CBC, BMP 02/16/20 13:30 02/16/20 13:30 Vital Signs Period Temp Pulse Resp BP Sys/Hadley Pulse Ox Last 24 Hr 97.8 F-98.4 F 66-86 17-22 144-171/56-88 96-99 tachypneic at rest obese lungs scatt faint wheezing s1s2 rrr abd soft edema much better aaox3 acute copd exacerbation htn obesity niddm since significant weight gain in past year steroid taper nebs o2 dvt/gi prophylaxis cont bp meds monitor sugars dc planning to pulmonary rehab
[2020-02-17] MEDS ORDERED: PT OWN MED DRAWER 7, Y5N ONE (09:57)
[2020-02-17] MEDS: PANTOPRAZOLE 40 MG TABLET PO SCH (10:15)
[2020-02-17] MEDS: LORATADINE 10 MG TABLET PO SCH (10:15)
[2020-02-17] MEDS: LISINOPRIL 20 MG TABLET (FP) PO SCH (10:15)
[2020-02-17] MEDS: FUROSEMIDE 40 MG TABLET (FP) PO SCH (10:15)
[2020-02-17] MEDS: amLODIPine BESYLATE 10 MG TABLET (FP) PO SCH (10:15)
[2020-02-17] MEDS: HEPARIN NA (PORCINE) 5,000 UNITS/ML 1ML VIAL SQ SCH (10:16)
[2020-02-17] MEDS: TIOTROPIUM BROMIDE 2.5 MCG (SPIRIVA) RESPIMAT INHALER IH SCH (10:17)
[2020-02-17] MEDS: BUDESONIDE/FORMETEROL FUMARATE 160/4.5 mcg INHALER IH SCH (10:17)
[2020-02-17 10:25] VITALS: BP 155/65; PULSE 67
[2020-02-17] MEDS: BACITRACIN 15 GM TUBE TOPICAL OINTMENT TP SCH (12:34)
[2020-02-17] MEDS ORDERED: predniSONE 20 MG TABLET (UD) PO SCH (18:00)
== END 2020-02-17 11:30 | DRG 191 ==
LOC: JER 15:07 → JERBED 23:04 → J5S 02-11 18:39
PROVIDERS: ADMIT Internal Medicine; ATTEND Internal Medicine
DX: J44.1 Chronic obstructive pulmonary disease with (acute) exacerbation (principal); J96.11 Chronic respiratory failure with hypoxia; K76.0 Fatty (change of) liver, not elsewhere classified; N28.1 Cyst of kidney, acquired; K44.9 Diaphragmatic hernia without obstruction or gangrene; M51.36 Other intervertebral disc degeneration, lumbar region; K21.9 Gastro-esophageal reflux disease without esophagitis; M54.5 Low back pain; I10 Essential (primary) hypertension; E66.9 Obesity, unspecified; Z68.38 Body mass index [BMI] 38.0-38.9, adult; E11.9 Type 2 diabetes mellitus without complications; G89.29 Other chronic pain; Z11.59 Encounter for screening for other viral diseases; Z87.891 Personal history of nicotine dependence
CPT/HCPCS: 36415; 71045-TC-FY; 71275-TC; 80053; 81003; 82550; 82803; 82962; 83880; 84484; 85025; 85027; 85379; 87040; 93005; 93010; 93970-TC; 94640; 97116-GP; 97161-GP; 99285-25; J1644; Q9967; U0003

== ENCOUNTER 2020-08-02 17:23 | Inpatient (IN) | payer OTHER, BC ==
[2020-08-02] MEDS ORDERED: ALBUTEROL SO4 HFA INHALER IH ONE ×2 (18:33→18:47)
[2020-08-02] MEDS ORDERED: methylPREDNISolone NA SUCC 125 MG/2 ML VIAL IVPB ONE (18:51)
[2020-08-02] MEDS ORDERED: ALBUTEROL SO4 2.5/IPRATROPIUM 0.5 INH SOL 3 ML VIAL.NEB. NEB ONE ×2 (18:51→19:29)
[2020-08-02 19:13] LABS: BASO % 0.5 % (0-2.0); EOS % 0.6 % (0-4.5); HEMATOCRIT 41.3 % (32.4-45.2); LYMPH % 7.6 % (8-40); MCH 29.2 pg (25.7-33.7); MCHC 33.9 g/dl (32.0-36.0); MEAN CELL VOLUME 86.3 fl (80-96); MEAN PLT VOLUME 9.2 fl (7.5-11.1); MONO % 2.8 % (3.8-10.2); NEUT % 88.5 % (42.8-82.8); PLATELET COUNT 192 K/MM3 (134-434); RBC 4.79 M/mm3 (3.60-5.2); RDW 14.7 % (11.6-15.6); WHITE BLOOD COUNT 10.4 K/mm3 (4.0-10.0)
[2020-08-02] MEDS ORDERED: methylPREDNISolone NA SUCC 125 MG/2 ML VIAL ONE (19:30)
[2020-08-02 19:31] LABS: CHLORIDE 104 mmol/L (98-107); POTASSIUM 4.5 mmol/L (3.5-5.1); SODIUM 138 mmol/L (136-145)
[2020-08-02 19:33] LABS: ALBUMIN 3.9 g/dl (3.4-5.0); ANION GAP 5 MMOL/L (8-16); BLOOD UREA NITROGEN 21.7 mg/dL (7-18); CALCIUM 9.1 mg/dL (8.5-10.1); CO2 28 mmol/L (21-32)
[2020-08-02 19:34] LABS: GLUCOSE,RANDOM 216 mg/dL (74-106)
[2020-08-02 19:36] LABS: SGPT/ALT 36 U/L (13-61)
[2020-08-02 19:37] LABS: CREATININE 0.8 mg/dL (0.55-1.3); SGOT/AST 12 U/L (15-37)
[2020-08-02 19:38] LABS: BILIRUBIN,TOTAL 0.4 mg/dL (0.2-1); TOT PROT 6.7 g/dl (6.4-8.2)
[2020-08-02 19:39] LABS: ALK PHOS 112 U/L (45-117)
[2020-08-02 19:42] LABS: N-TERMINAL BNP 119.6 pg/ml (5-450)
[2020-08-03] MEDS ORDERED: ALBUTEROL SO4 0.083% IH SOL 2.5 MG/3 ML VIAL.NEB. NEB PRN (00:03)
[2020-08-03] MEDS ORDERED: ZOLPIDEM TARTRATE 5 MG TABLET PO PRN (00:17)
[2020-08-03] MEDS ORDERED: ZOLPIDEM TARTRATE 5 MG TABLET ONE (02:09)
[2020-08-03] MEDS ORDERED: ALPRAZolam 0.25 MG TABLET ONE ×2 (02:10→10:52)
[2020-08-03] MEDS: ALPRAZolam 0.25 MG TABLET PO PRN ×2 (02:16→23:46)
[2020-08-03] MEDS: methylPREDNISolone NA SUCC 40 MG/1 ML VIAL IVPUSH SCH ×4 (02:38→22:50)
[2020-08-03] MEDS: guaiFENesin/D-M SUGAR-FREE/ACLHOL-FREE 118 ML BOTTLE PO PRN (04:38)
[2020-08-03] MEDS: INSULIN SLIDING SCALE (NOVOLOG) 1 VIAL SQ SCH ×4 (08:15→22:59)
[2020-08-03] MEDS ORDERED: methylPREDNISolone NA SUCC 125 MG/2 ML VIAL ONE ×2 (09:26→14:50)
[2020-08-03] MEDS ORDERED: AZITHROMYCIN IVPB 500 MG/250 ML BAG IVPB SCH (10:00)
[2020-08-03] MEDS ORDERED: amLODIPine BESYLATE 5 MG TABLET (FP) ONE (10:48)
[2020-08-03] MEDS ORDERED: FUROSEMIDE 40 MG TABLET (FP) ONE (10:48)
[2020-08-03] MEDS ORDERED: LISINOPRIL 20 MG TABLET ONE (10:49)
[2020-08-03] MEDS ORDERED: LORATADINE 10 MG TABLET ONE (10:50)
[2020-08-03] MEDS ORDERED: ENOXAPARIN NA (PORCINE) 40 MG/0.4 ML DISP.SYRIN SQ ONE (10:50)
[2020-08-03] MEDS ORDERED: AZITHROMYCIN IVPB 500 MG/250 ML BAG IVPB ONE (10:51)
[2020-08-03] MEDS: LISINOPRIL 20 MG TABLET PO SCH (11:00)
[2020-08-03] MEDS: amLODIPine BESYLATE 10 MG TABLET (FP) PO SCH (11:00)
[2020-08-03] MEDS: ALBUTEROL SO4 HFA INHALER IH SCH ×4 (11:00→22:55)
[2020-08-03] MEDS: PANTOPRAZOLE 40 MG TABLET PO SCH (11:00)
[2020-08-03] MEDS ORDERED: ALPRAZolam 0.25 MG TABLET PO ONE (11:15)
[2020-08-03] MEDS: LORATADINE 10 MG TABLET PO SCH (11:21)
[2020-08-03] MEDS: ALBUTEROL SO4 2.5/IPRATROPIUM 0.5 INH SOL 3 ML VIAL.NEB. NEB SCH ×4 (11:21→22:29)
[2020-08-03] MEDS: FUROSEMIDE 40 MG TABLET (FP) PO SCH (11:21)
[2020-08-03] MEDS: ENOXAPARIN NA (PORCINE) 40 MG/0.4 ML DISP.SYRIN SQ SCH (11:21)
[2020-08-03] MEDS: BUDESONIDE/FORMETEROL FUMARATE 160/4.5 mcg INHALER IH SCH (11:22)
[2020-08-03] MEDS ORDERED: ALBUTEROL SO4 2.5/IPRATROPIUM 0.5 INH SOL 3 ML VIAL.NEB. NEB ONE (16:31)
[2020-08-03 22:28] VITALS: BMI 42.3
[2020-08-04] MEDS: ALBUTEROL SO4 2.5/IPRATROPIUM 0.5 INH SOL 3 ML VIAL.NEB. NEB SCH ×2 (00:15→08:38)
[2020-08-04] MEDS: BUDESONIDE/FORMETEROL FUMARATE 160/4.5 mcg INHALER IH SCH ×3 (00:31→21:24)
[2020-08-04] MEDS: methylPREDNISolone NA SUCC 40 MG/1 ML VIAL IVPUSH SCH ×4 (02:38→21:23)
[2020-08-04] MEDS: guaiFENesin/D-M SUGAR-FREE/ACLHOL-FREE 118 ML BOTTLE PO PRN (02:39)
[2020-08-04] MEDS: INSULIN SLIDING SCALE (NOVOLOG) 1 VIAL SQ SCH ×4 (06:24→21:23)
[2020-08-04 07:49] LABS: BASO % 0.4 % (0-2.0); HEMATOCRIT 38.1 % (32.4-45.2); HEMOGLOBIN 12.6 GM/dL (10.7-15.3); LYMPH % 5.6 % (8-40); MCH 28.8 pg (25.7-33.7); MCHC 33.2 g/dl (32.0-36.0); MEAN CELL VOLUME 86.9 fl (80-96); MEAN PLT VOLUME 9.6 fl (7.5-11.1); PLATELET COUNT 179 K/MM3 (134-434); RBC 4.39 M/mm3 (3.60-5.2); RDW 15.2 % (11.6-15.6); WHITE BLOOD COUNT 11.3 K/mm3 (4.0-10.0)
[2020-08-04 08:10] LABS: POTASSIUM 4.2 mmol/L (3.5-5.1)
[2020-08-04 08:13] LABS: BLOOD UREA NITROGEN 32.5 mg/dL (7-18)
[2020-08-04 08:14] LABS: MAGNESIUM 2.4 mg/dL (1.8-2.4)
[2020-08-04 08:16] LABS: CREATININE 0.8 mg/dL (0.55-1.3)
[2020-08-04 08:17] LABS: PHOSPHOROUS 3.6 mg/dL (2.5-4.9)
[2020-08-04 08:58] LABS: ANISOCYTOSIS 1+; MACROCYTOSIS 0; PLATELET ESTIMATE NORMAL
[2020-08-04] MEDS ORDERED: PT OWN MED DRAWER 7, Y5N ONE ×2 (09:23→10:18)
[2020-08-04] MEDS: LISINOPRIL 20 MG TABLET PO SCH (09:32)
[2020-08-04] MEDS: AZITHROMYCIN 250 MG TABLET PO SCH (09:32)
[2020-08-04] MEDS: PANTOPRAZOLE 40 MG TABLET PO SCH (09:32)
[2020-08-04] MEDS: ENOXAPARIN NA (PORCINE) 40 MG/0.4 ML DISP.SYRIN SQ SCH ×2 (09:32→10:45)
[2020-08-04] MEDS: amLODIPine BESYLATE 10 MG TABLET (FP) PO SCH (09:32)
[2020-08-04] MEDS: ALBUTEROL SO4 HFA INHALER IH SCH (09:33)
[2020-08-04] MEDS: FUROSEMIDE 40 MG TABLET (FP) PO SCH (09:33)
[2020-08-04] MEDS: LORATADINE 10 MG TABLET PO SCH (09:33)
[2020-08-04] MEDS: ALPRAZolam 0.25 MG TABLET PO PRN (10:29)
[2020-08-04] MEDS: MAG HYDROX/AL HYDROX/SIMETH 30 ML UNIT-DOSE CUP PO PRN (13:11)
[2020-08-04] MEDS: TIOTROPIUM BROMIDE 2.5 MCG (SPIRIVA) RESPIMAT INHALER IH SCH (13:35)
[2020-08-04] MEDS: BENZOCAINE/MENTH/CETYLPYRD CL 1 EACH LOZENGE MM PRN ×2 (13:37→19:46)
[2020-08-04] MEDS: ALBUTEROL SO4 0.083% IH SOL 2.5 MG/3 ML VIAL.NEB. NEB PRN ×3 (14:10→21:40)
[2020-08-04] MEDS: metFORMIN HCL 500 MG TABLET (FP) PO SCH (17:04)
[2020-08-05] MEDS: ALPRAZolam 0.25 MG TABLET PO PRN ×2 (01:43→14:26)
[2020-08-05] MEDS: methylPREDNISolone NA SUCC 40 MG/1 ML VIAL IVPUSH SCH ×4 (02:19→21:01)
[2020-08-05] MEDS: guaiFENesin/D-M SUGAR-FREE/ACLHOL-FREE 118 ML BOTTLE PO PRN (04:21)
[2020-08-05] MEDS: ALBUTEROL SO4 0.083% IH SOL 2.5 MG/3 ML VIAL.NEB. NEB PRN ×2 (04:47→07:29)
[2020-08-05] MEDS: metFORMIN HCL 500 MG TABLET (FP) PO SCH ×2 (06:13→17:02)
[2020-08-05] MEDS: INSULIN SLIDING SCALE (NOVOLOG) 1 VIAL SQ SCH ×4 (06:13→21:01)
[2020-08-05] MEDS ORDERED: PT OWN MED DRAWER 7, Y5N ONE ×2 (07:07→09:00)
[2020-08-05] MEDS ORDERED: SODIUM CHLORIDE NASAL SPRAY 44 ML BOTTLE NS PRN (07:51)
[2020-08-05] MEDS: LISINOPRIL 20 MG TABLET PO SCH (09:18)
[2020-08-05] MEDS: LORATADINE 10 MG TABLET PO SCH (09:18)
[2020-08-05] MEDS: PANTOPRAZOLE 40 MG TABLET PO SCH (09:18)
[2020-08-05] MEDS: AZITHROMYCIN 250 MG TABLET PO SCH (09:18)
[2020-08-05] MEDS: FUROSEMIDE 40 MG TABLET (FP) PO SCH (09:18)
[2020-08-05] MEDS: ENOXAPARIN NA (PORCINE) 40 MG/0.4 ML DISP.SYRIN SQ SCH (09:18)
[2020-08-05] MEDS: amLODIPine BESYLATE 10 MG TABLET (FP) PO SCH (09:18)
[2020-08-05] MEDS: TIOTROPIUM BROMIDE 2.5 MCG (SPIRIVA) RESPIMAT INHALER IH SCH (09:27)
[2020-08-05] MEDS: BUDESONIDE/FORMETEROL FUMARATE 160/4.5 mcg INHALER IH SCH ×2 (09:27→21:01)
[2020-08-05] MEDS ORDERED: ALBUTEROL SO4 2.5/IPRATROPIUM 0.5 INH SOL 3 ML VIAL.NEB. NEB ONE (10:50)
[2020-08-05] MEDS: ALBUTEROL SO4 2.5/IPRATROPIUM 0.5 INH SOL 3 ML VIAL.NEB. NEB SCH ×3 (11:00→19:37)
[2020-08-05] MEDS ORDERED: INSULIN (NOVOLOG) ASPART 100 UNITS/ML 10ML VIAL ONE (16:39)
[2020-08-05] MEDS: INSULIN (LEVEMIR) 100 UNITS/ML UNITS SQ SCH (21:00)
[2020-08-05] MEDS: diphenhydrAMINE HCL 25 MG CAPSULE (FP) PO PRN (23:45)
[2020-08-06] MEDS: ALBUTEROL SO4 0.083% IH SOL 2.5 MG/3 ML VIAL.NEB. NEB PRN ×2 (01:40→04:30)
[2020-08-06] MEDS: methylPREDNISolone NA SUCC 40 MG/1 ML VIAL IVPUSH SCH ×4 (02:35→18:10)
[2020-08-06] MEDS: metFORMIN HCL 500 MG TABLET (FP) PO SCH ×2 (06:20→17:06)
[2020-08-06] MEDS: INSULIN SLIDING SCALE (NOVOLOG) 1 VIAL SQ SCH ×4 (06:20→21:14)
[2020-08-06] MEDS: ALBUTEROL SO4 2.5/IPRATROPIUM 0.5 INH SOL 3 ML VIAL.NEB. NEB SCH ×4 (07:00→19:53)
[2020-08-06] MEDS ORDERED: ALPRAZolam 0.25 MG TABLET PO PRN (08:14)
[2020-08-06 08:54] LABS: BASO % 0.2 % (0-2.0); HEMATOCRIT 39.5 % (32.4-45.2); HEMOGLOBIN 12.7 GM/dL (10.7-15.3); LYMPH % 4.7 % (8-40); MCH 28.4 pg (25.7-33.7); MCHC 32.1 g/dl (32.0-36.0); MEAN CELL VOLUME 88.5 fl (80-96); MEAN PLT VOLUME 10.3 fl (7.5-11.1); MONO % 2.6 % (3.8-10.2); NEUT % 92.5 % (42.8-82.8); PLATELET COUNT 171 K/MM3 (134-434); RBC 4.46 M/mm3 (3.60-5.2); RDW 15.3 % (11.6-15.6); WHITE BLOOD COUNT 12.2 K/mm3 (4.0-10.0)
[2020-08-06 09:26] LABS: POTASSIUM 4.3 mmol/L (3.5-5.1)
[2020-08-06 09:31] LABS: BLOOD UREA NITROGEN 42.4 mg/dL (7-18)
[2020-08-06 09:34] LABS: CREATININE 0.9 mg/dL (0.55-1.3)
[2020-08-06 09:36] LABS: BILIRUBIN,TOTAL 0.6 mg/dL (0.2-1); TOT PROT 6.5 g/dl (6.4-8.2)
[2020-08-06 09:40] LABS: N-TERMINAL BNP 320.1 pg/ml (5-450)
[2020-08-06] MEDS: PANTOPRAZOLE 40 MG TABLET PO SCH (09:56)
[2020-08-06] MEDS: LISINOPRIL 20 MG TABLET PO SCH (09:56)
[2020-08-06] MEDS: FUROSEMIDE 40 MG TABLET (FP) PO SCH (09:57)
[2020-08-06] MEDS: LORATADINE 10 MG TABLET PO SCH (09:57)
[2020-08-06] MEDS: amLODIPine BESYLATE 10 MG TABLET (FP) PO SCH (09:57)
[2020-08-06] MEDS: ESCITALOPRAM OXALATE 10 MG TABLET PO SCH (09:57)
[2020-08-06] MEDS: ALBUTEROL SO4 HFA INHALER IH PRN ×2 (09:58→18:56)
[2020-08-06] MEDS: ENOXAPARIN NA (PORCINE) 40 MG/0.4 ML DISP.SYRIN SQ SCH ×2 (09:59→10:33)
[2020-08-06] MEDS: BUDESONIDE/FORMETEROL FUMARATE 160/4.5 mcg INHALER IH SCH ×2 (10:01→21:14)
[2020-08-06] MEDS ORDERED: INSULIN (NOVOLOG) ASPART 100 UNITS/ML 10ML VIAL ONE ×3 (11:27→21:00)
[2020-08-06 12:58] LABS: ANISOCYTOSIS 1+; MACROCYTOSIS 0; PLATELET ESTIMATE NORMAL
[2020-08-06] MEDS: BENZOCAINE/MENTH/CETYLPYRD CL 1 EACH LOZENGE MM PRN (14:13)
[2020-08-06] MEDS: INSULIN (LEVEMIR) 100 UNITS/ML UNITS SQ SCH (21:14)
[2020-08-06] MEDS: ACETAMINOPHEN 325 MG TABLET (FP) PO PRN (21:59)
[2020-08-07] MEDS: diphenhydrAMINE HCL 25 MG CAPSULE (FP) PO PRN ×2 (01:43→22:14)
[2020-08-07] MEDS: methylPREDNISolone NA SUCC 40 MG/1 ML VIAL IVPUSH SCH ×3 (01:43→17:23)
[2020-08-07] MEDS ORDERED: ALBUTEROL SO4 0.083% IH SOL 2.5 MG/3 ML VIAL.NEB. NEB ONE (02:23)
[2020-08-07] MEDS: metFORMIN HCL 500 MG TABLET (FP) PO SCH ×2 (06:22→16:51)
[2020-08-07] MEDS: INSULIN SLIDING SCALE (NOVOLOG) 1 VIAL SQ SCH ×4 (06:22→22:14)
[2020-08-07] MEDS: ALBUTEROL SO4 2.5/IPRATROPIUM 0.5 INH SOL 3 ML VIAL.NEB. NEB SCH ×4 (07:55→20:35)
[2020-08-07] MEDS: ESCITALOPRAM OXALATE 10 MG TABLET PO SCH (09:25)
[2020-08-07] MEDS: LORATADINE 10 MG TABLET PO SCH (09:25)
[2020-08-07] MEDS: amLODIPine BESYLATE 10 MG TABLET (FP) PO SCH (09:25)
[2020-08-07] MEDS: FUROSEMIDE 40 MG TABLET (FP) PO SCH (09:25)
[2020-08-07] MEDS: PANTOPRAZOLE 40 MG TABLET PO SCH (09:26)
[2020-08-07] MEDS: BUDESONIDE/FORMETEROL FUMARATE 160/4.5 mcg INHALER IH SCH ×2 (09:26→22:15)
[2020-08-07] MEDS: LISINOPRIL 20 MG TABLET PO SCH (09:26)
[2020-08-07] MEDS: ENOXAPARIN NA (PORCINE) 40 MG/0.4 ML DISP.SYRIN SQ SCH ×2 (09:28→09:35)
[2020-08-07] MEDS: ACETAMINOPHEN 325 MG TABLET (FP) PO PRN (13:19)
[2020-08-07] MEDS ORDERED: INSULIN (NOVOLOG) ASPART 100 UNITS/ML 10ML VIAL ONE ×2 (17:40→21:14)
[2020-08-07] MEDS: INSULIN (LEVEMIR) 100 UNITS/ML UNITS SQ SCH (22:14)
[2020-08-08] MEDS: methylPREDNISolone NA SUCC 40 MG/1 ML VIAL IVPUSH SCH ×3 (03:16→17:22)
[2020-08-08] MEDS: metFORMIN HCL 500 MG TABLET (FP) PO SCH ×2 (06:41→16:35)
[2020-08-08] MEDS: INSULIN SLIDING SCALE (NOVOLOG) 1 VIAL SQ SCH ×4 (06:41→21:43)
[2020-08-08] MEDS: ALBUTEROL SO4 2.5/IPRATROPIUM 0.5 INH SOL 3 ML VIAL.NEB. NEB SCH ×4 (08:50→20:17)
[2020-08-08] MEDS ORDERED: PT OWN MED DRAWER 7, Y5N ONE (09:05)
[2020-08-08] MEDS: LORATADINE 10 MG TABLET PO SCH (09:08)
[2020-08-08] MEDS: FUROSEMIDE 40 MG TABLET (FP) PO SCH (09:08)
[2020-08-08] MEDS: amLODIPine BESYLATE 10 MG TABLET (FP) PO SCH (09:09)
[2020-08-08] MEDS: BUDESONIDE/FORMETEROL FUMARATE 160/4.5 mcg INHALER IH SCH ×2 (09:09→21:45)
[2020-08-08] MEDS: PANTOPRAZOLE 40 MG TABLET PO SCH (09:09)
[2020-08-08] MEDS: LISINOPRIL 20 MG TABLET PO SCH (09:09)
[2020-08-08] MEDS: ESCITALOPRAM OXALATE 10 MG TABLET PO SCH (09:09)
[2020-08-08] MEDS: ENOXAPARIN NA (PORCINE) 40 MG/0.4 ML DISP.SYRIN SQ SCH (09:11)
[2020-08-08] MEDS: ALBUTEROL SO4 HFA INHALER IH PRN ×2 (09:19→17:23)
[2020-08-08] MEDS: MAG HYDROX/AL HYDROX/SIMETH 30 ML UNIT-DOSE CUP PO PRN (09:23)
[2020-08-08] MEDS ORDERED: INSULIN (NOVOLOG) ASPART 100 UNITS/ML 10ML VIAL ONE (17:01)
[2020-08-08] MEDS: INSULIN (LEVEMIR) 100 UNITS/ML UNITS SQ SCH (21:44)
[2020-08-08] MEDS: BENZOCAINE/MENTH/CETYLPYRD CL 1 EACH LOZENGE MM PRN (21:57)
[2020-08-09] MEDS: methylPREDNISolone NA SUCC 40 MG/1 ML VIAL IVPUSH SCH ×3 (01:37→21:30)
[2020-08-09] MEDS: metFORMIN HCL 500 MG TABLET (FP) PO SCH ×2 (06:31→16:55)
[2020-08-09] MEDS: INSULIN SLIDING SCALE (NOVOLOG) 1 VIAL SQ SCH ×4 (06:31→21:28)
[2020-08-09] MEDS: ALBUTEROL SO4 2.5/IPRATROPIUM 0.5 INH SOL 3 ML VIAL.NEB. NEB SCH ×4 (07:45→19:52)
[2020-08-09] MEDS ORDERED: ALPRAZolam 0.25 MG TABLET PO PRN (08:16)
[2020-08-09] MEDS ORDERED: PT OWN MED DRAWER 7, Y5N ONE (10:01)
[2020-08-09] MEDS: LORATADINE 10 MG TABLET PO SCH (10:03)
[2020-08-09] MEDS: ESCITALOPRAM OXALATE 10 MG TABLET PO SCH (10:04)
[2020-08-09] MEDS: LISINOPRIL 20 MG TABLET PO SCH (10:04)
[2020-08-09] MEDS: FUROSEMIDE 40 MG TABLET (FP) PO SCH (10:04)
[2020-08-09] MEDS: PANTOPRAZOLE 40 MG TABLET PO SCH (10:04)
[2020-08-09] MEDS: amLODIPine BESYLATE 10 MG TABLET (FP) PO SCH (10:04)
[2020-08-09] MEDS: ENOXAPARIN NA (PORCINE) 40 MG/0.4 ML DISP.SYRIN SQ SCH (10:04)
[2020-08-09] MEDS: BUDESONIDE/FORMETEROL FUMARATE 160/4.5 mcg INHALER IH SCH ×2 (10:10→21:30)
[2020-08-09] MEDS ORDERED: INSULIN (NOVOLOG) ASPART 100 UNITS/ML 10ML VIAL ONE (16:47)
[2020-08-09] MEDS: INSULIN (LEVEMIR) 100 UNITS/ML UNITS SQ SCH (21:28)
[2020-08-10] MEDS ORDERED: MELATONIN 5 MG TABLETS PO ONE (00:19)
[2020-08-10] MEDS: ACETAMINOPHEN 325 MG TABLET (FP) PO PRN (02:04)
[2020-08-10] MEDS ORDERED: PHENYLEPHRINE HCL/COCOA BUTTER SUPPOSITORY RC ONE (05:45)
[2020-08-10] MEDS: metFORMIN HCL 500 MG TABLET (FP) PO SCH (06:00)
[2020-08-10] MEDS: INSULIN SLIDING SCALE (NOVOLOG) 1 VIAL SQ SCH ×2 (06:01→11:38)
[2020-08-10 06:37] VITALS: BP 141/85; PULSE 75; TEMP 98.5
[2020-08-10] MEDS: ALBUTEROL SO4 2.5/IPRATROPIUM 0.5 INH SOL 3 ML VIAL.NEB. NEB SCH ×2 (07:50→11:50)
[2020-08-10] MEDS ORDERED: PT OWN MED DRAWER 7, Y5N ONE (09:21)
[2020-08-10] MEDS: PANTOPRAZOLE 40 MG TABLET PO SCH (09:22)
[2020-08-10] MEDS: FUROSEMIDE 40 MG TABLET (FP) PO SCH (09:22)
[2020-08-10] MEDS: amLODIPine BESYLATE 10 MG TABLET (FP) PO SCH (09:22)
[2020-08-10] MEDS: ESCITALOPRAM OXALATE 10 MG TABLET PO SCH (09:22)
[2020-08-10] MEDS: LORATADINE 10 MG TABLET PO SCH (09:22)
[2020-08-10] MEDS: LISINOPRIL 20 MG TABLET PO SCH (09:22)
[2020-08-10] MEDS: methylPREDNISolone NA SUCC 40 MG/1 ML VIAL IVPUSH SCH (09:23)
[2020-08-10] MEDS: ENOXAPARIN NA (PORCINE) 40 MG/0.4 ML DISP.SYRIN SQ SCH (09:23)
[2020-08-10] MEDS: BUDESONIDE/FORMETEROL FUMARATE 160/4.5 mcg INHALER IH SCH (09:29)
== END 2020-08-10 12:54 | DRG 190 ==
LOC: JER 17:23 → JERBED 20:06 → J8W 08-03 22:00
PROVIDERS: ADMIT Internal Medicine; ATTEND Internal Medicine
DX: J44.1 Chronic obstructive pulmonary disease with (acute) exacerbation (principal); J96.21 Acute and chronic respiratory failure with hypoxia; Z68.41 Body mass index [BMI] 40.0-44.9, adult; E11.9 Type 2 diabetes mellitus without complications; I10 Essential (primary) hypertension; E78.00 Pure hypercholesterolemia, unspecified; K21.9 Gastro-esophageal reflux disease without esophagitis; M54.5 Low back pain; F41.9 Anxiety disorder, unspecified; E66.01 Morbid (severe) obesity due to excess calories; F17.210 Nicotine dependence, cigarettes, uncomplicated; Z99.81 Dependence on supplemental oxygen; Z96.653 Presence of artificial knee joint, bilateral; Z96.641 Presence of right artificial hip joint
CPT/HCPCS: 36415; 71045-TC-FY; 80048; 80053; 82550; 82962; 83735; 83880; 84100; 84484; 85025; 93005; 93010; 93306-TC; 94640; 97116-GP; 97161-GP; 99285-25; C9803; U0003

== ENCOUNTER 2022-12-06 13:15 | Inpatient (IN) | payer OTHER, BC ==
[2022-12-06] MEDS ORDERED: ALBUTEROL SO4 2.5/IPRATROPIUM 0.5 INH SOL 3 ML VIAL.NEB. NEB ONE ×3 (13:38→21:14)
[2022-12-06] MEDS ORDERED: DEXAMETHASONE SOD PHOSPHATE 10 MG/1 ML VIAL IVPUSH ONE (13:39)
[2022-12-06] MEDS ORDERED: AZITHROMYCIN IVPB 500 MG in DEXTROSE 5%-WATER - 250 ML IVPB ONE (13:46)
[2022-12-06] MEDS ORDERED: DEXAMETHASONE SOD PHOSPHATE 10 MG/1 ML VIAL ONE (13:55)
[2022-12-06] MEDS ORDERED: AZITHROMYCIN IVPB 500 MG/250 ML BAG IVPB ONE (14:17)
[2022-12-06 14:37] LABS: BASO % 0.2 % (0-2.0); EOS % 0.3 % (0-4.5); HEMATOCRIT 43.5 % (32.4-45.2); HEMOGLOBIN 13.6 GM/dL (10.7-15.3); LYMPH % 9.5 % (8-40); MCH 27.7 pg (25.7-33.7); MCHC 31.3 g/dl (32.0-36.0); MEAN CELL VOLUME 88.5 fl (80-96); MEAN PLT VOLUME 9.5 fl (7.5-11.1); PLATELET COUNT 224 10^3/uL (134-434); RBC 4.92 M/mm3 (3.60-5.2); RDW 15.5 % (11.6-15.6); WHITE BLOOD COUNT 16.3 K/mm3 (4.0-10.0)
[2022-12-06 14:43] LABS: INR 0.96 (0.83-1.09); PROTHROMBIN TIME (PATIENT) 11.1 SEC (9.7-13.0)
[2022-12-06 14:45] LABS: VENOUS BASE EXCESS 0.6 mmol/L (-2-2); VENOUS O2 SATURATION 53.3 % (70-80); VENOUS PCO2 59.2 mmHg (38-52); VENOUS PH 7.304 (7.310-7.410)
[2022-12-06 14:46] LABS: ACTIVATED PTT 31.7 SECONDS (25.2-36.5)
[2022-12-06 15:02] LABS: POTASSIUM 4.5 mmol/L (3.5-5.1)
[2022-12-06 15:04] LABS: CALCIUM 9.8 mg/dL (8.5-10.1)
[2022-12-06 15:05] LABS: ALBUMIN 3.8 g/dl (3.4-5.0); BLOOD UREA NITROGEN 29.6 mg/dL (7-18)
[2022-12-06 15:08] LABS: CREATININE 1.2 mg/dL (0.55-1.3)
[2022-12-06 15:10] LABS: BILIRUBIN,TOTAL 0.5 mg/dL (0.2-1); TOT PROT 6.6 g/dl (6.4-8.2)
[2022-12-06 15:13] LABS: N-TERMINAL BNP 57.1 pg/ml (5-450)
[2022-12-06] MEDS ORDERED: SODIUM CHLORIDE 500 ML IV STA (16:19)
[2022-12-06] MEDS ORDERED: INSULIN SLIDING SCALE (NOVOLOG) 1 VIAL SQ PRN (17:52)
[2022-12-06] MEDS ORDERED: ACETAMINOPHEN 325 MG TABLET (FP) PO PRN (17:59)
[2022-12-06] MEDS ORDERED: methylPREDNISolone NA SUCC 40 MG/1 ML VIAL ONE (21:14)
[2022-12-06] MEDS: methylPREDNISolone NA SUCC 40 MG/1 ML VIAL IVPUSH SCH (21:17)
[2022-12-06] MEDS: ALBUTEROL SO4 2.5/IPRATROPIUM 0.5 INH SOL 3 ML VIAL.NEB. NEB SCH (21:17)
[2022-12-07] MEDS: BUDESONIDE/FORMETEROL FUMARATE 160/4.5 mcg INHALER IH SCH ×3 (01:11→21:37)
[2022-12-07] MEDS: methylPREDNISolone NA SUCC 40 MG/1 ML VIAL IVPUSH SCH ×3 (02:48→18:16)
[2022-12-07] MEDS: INSULIN SLIDING SCALE (NOVOLOG) 1 VIAL SQ SCH ×4 (06:57→21:37)
[2022-12-07] MEDS: ALBUTEROL SO4 2.5/IPRATROPIUM 0.5 INH SOL 3 ML VIAL.NEB. NEB SCH ×4 (07:30→19:53)
[2022-12-07 08:36] VITALS: BMI 34.0
[2022-12-07] MEDS: ENOXAPARIN NA (PORCINE) 40 MG/0.4 ML DISP.SYRIN SQ SCH (09:25)
[2022-12-07] MEDS: PANTOPRAZOLE 40 MG TABLET PO SCH (09:26)
[2022-12-07 10:15] LABS: POTASSIUM 4.5 mmol/L (3.5-5.1)
[2022-12-07 10:26] LABS: ALBUMIN 3.7 g/dl (3.4-5.0); CALCIUM 9.6 mg/dL (8.5-10.1)
[2022-12-07 10:29] LABS: CREATININE 1.3 mg/dL (0.55-1.3)
[2022-12-07 10:31] LABS: BILIRUBIN,TOTAL 0.5 mg/dL (0.2-1); TOT PROT 6.4 g/dl (6.4-8.2)
[2022-12-07] MEDS: TIOTROPIUM BROMIDE 2.5 MCG (SPIRIVA) RESPIMAT INHALER IH SCH (11:13)
[2022-12-07 11:28] LABS: BASO % 0.2 % (0-2.0); HEMATOCRIT 42.8 % (32.4-45.2); LYMPH % 8.3 % (8-40); MCH 27.3 pg (25.7-33.7); MCHC 30.5 g/dl (32.0-36.0); MEAN CELL VOLUME 89.5 fl (80-96); MEAN PLT VOLUME 10.1 fl (7.5-11.1); MONO % 1.2 % (3.8-10.2); NEUT % 90.3 % (42.8-82.8); PLATELET COUNT 221 10^3/uL (134-434); RBC 4.78 M/mm3 (3.60-5.2); RDW 15.9 % (11.6-15.6)
[2022-12-07] MEDS: metFORMIN HCL 500 MG TABLET (FP) PO SCH (16:59)
[2022-12-07] MEDS ORDERED: INSULIN (NOVOLOG) ASPART 100 UNITS/ML 10ML VIAL ONE (21:30)
[2022-12-08] MEDS: methylPREDNISolone NA SUCC 40 MG/1 ML VIAL IVPUSH SCH (01:50)
[2022-12-08] MEDS: INSULIN SLIDING SCALE (NOVOLOG) 1 VIAL SQ SCH ×3 (06:35→16:32)
[2022-12-08] MEDS: metFORMIN HCL 500 MG TABLET (FP) PO SCH ×2 (06:38→16:36)
[2022-12-08] MEDS: ALBUTEROL SO4 2.5/IPRATROPIUM 0.5 INH SOL 3 ML VIAL.NEB. NEB SCH ×4 (07:45→20:33)
[2022-12-08] MEDS: PANTOPRAZOLE 40 MG TABLET PO SCH (09:11)
[2022-12-08] MEDS: ENOXAPARIN NA (PORCINE) 40 MG/0.4 ML DISP.SYRIN SQ SCH (09:11)
[2022-12-08] MEDS: BUDESONIDE/FORMETEROL FUMARATE 160/4.5 mcg INHALER IH SCH (09:54)
[2022-12-08] MEDS: TIOTROPIUM BROMIDE 2.5 MCG (SPIRIVA) RESPIMAT INHALER IH SCH (09:55)
[2022-12-08] MEDS ORDERED: INSULIN (NOVOLOG) ASPART 100 UNITS/ML 10ML VIAL ONE (09:59)
[2022-12-08] MEDS ORDERED: methylPREDNISolone NA SUCC 40 MG/1 ML VIAL IVPUSH SCH (10:00)
[2022-12-08] MEDS ORDERED: CYANOCOBALAMIN (VITAMIN B-12) 1000 MCG/1 ML VIAL IM ONE (10:45)
[2022-12-08 18:27] VITALS: BP 150/78; PULSE 96; RESP 20; TEMP 97.7
== END 2022-12-08 22:50 | DRG 191 ==
LOC: JER 13:15 → JERBED 15:41 → J6S 23:17
PROVIDERS: ADMIT Internal Medicine; ATTEND Internal Medicine
DX: J44.1 Chronic obstructive pulmonary disease with (acute) exacerbation (principal); J96.11 Chronic respiratory failure with hypoxia; I10 Essential (primary) hypertension; E11.9 Type 2 diabetes mellitus without complications; E78.5 Hyperlipidemia, unspecified; E66.9 Obesity, unspecified; Z68.34 Body mass index [BMI] 34.0-34.9, adult; E11.65 Type 2 diabetes mellitus with hyperglycemia; M54.50 Low back pain, unspecified; G31.84 Mild cognitive impairment of uncertain or unknown etiology; F41.9 Anxiety disorder, unspecified; M51.36 Other intervertebral disc degeneration, lumbar region; Z99.81 Dependence on supplemental oxygen; Z96.642 Presence of left artificial hip joint; Z96.653 Presence of artificial knee joint, bilateral
CPT/HCPCS: 0241U-QW; 36415; 70450-TC; 71045-TC-FY; 80053; 82607; 82746; 82803; 82962; 83036; 83880; 84443; 84484; 85025; 85610; 85730; 86780; 93005; 93010; 93970-TC; 94640; 97116-GP; 97162-GP; 99285-25; J1100